=== PATIENT | female | born 1990 ===

== ENCOUNTER 2020-12-22 10:56 | Outpatient (REF) | payer OTHER, SELFPAY | END 2020-12-22 10:57 | disposition home or self-care (01) | LOC: HO.LAB 10:56 | PROVIDERS: Visit Provider Internal Medicine | DX: Z20.822 Contact with and (suspected) exposure to COVID-19 (principal) | CPT/HCPCS: 36415; C9803; U0003; U0005 ==

== ENCOUNTER 2021-07-10 14:00 | Outpatient (REF) | payer OTHER, SELFPAY ==
[2021-07-11 08:17] LABS: ~Hepatitis B Surface Antibody REACTIVE (Nonreactive)
[2021-07-13 18:11] LABS: TS Negative Control Passed; TS Panel A 4; TS Panel B 8; TS Positive Control Passed; TSpotTB POSITIVE (SeeBelow)
== END 2021-07-10 14:01 | disposition home or self-care (01) ==
LOC: HO.LNP 14:00
PROVIDERS: Visit Provider Internal Medicine
DX: Z02.1 Encounter for pre-employment examination (principal)
CPT/HCPCS: 86481; 86706; 86787

== ENCOUNTER → 2021-09-28 14:49 | Outpatient (BNVA) | payer MEDICAID, SELFPAY | PROVIDERS: PCP Internal Medicine; Visit Provider Internal Medicine | DX: R04.2 Hemoptysis (principal); Z22.7 Latent tuberculosis | CPT/HCPCS: 99202 ==

== ENCOUNTER → 2021-11-28 13:18 | Outpatient (BNVA) | payer OTHER, SELFPAY | PROVIDERS: PCP Internal Medicine; Visit Provider Advanced Practice Midwife | DX: Z32.01 Encounter for pregnancy test, result positive (principal) | CPT/HCPCS: 81025; 99212 ==

== ENCOUNTER 2022-01-16 16:29 | Emergency (ER) | payer OTHER, SELFPAY ==
--- NOTE | ~2022-01-16 | US_ITS ---
EXAMINATION: US PELVIS CLINICAL INFORMATION: Vaginal bleeding COMPARISON: Multiple prior ultrasound exams TECHNIQUE: Ultrasound of the pelvis is performed using both transabdominal and transvaginal transducers along with Doppler. Transvaginal imaging is performed due to inadequate visualization transabdominally. FINDINGS: Uterus: The uterus is anteverted and anteflexed measuring 9.0 x 4.0 x 5.4 cm. The double wall endometrial thickness is prominent and mildly heterogeneous at 15 mm. The uterus is smooth in contour and has normal myometrial echogenicity. No visible fibroid. Adnexa: Both ovaries are visualized. There is normal color flow to the adnexa. There is no ovarian torsion. There is no pelvic ascites or fluid collection. Right ovary measures 3.4 x 1.6 x 1.9 cm for a volume of 5.4 mL. Left ovary measures 3.3 x 1.3 x 2.6 cm for a volume of 5.8 mL. Normal bilateral follicular cysts are seen. US/US pelvic and transvaginal IMPRESSION: No significant abnormality is seen.
[2022-01-16] MEDS: 0.9 % Sodium Chloride 1,000 ML 999 ML IV (17:07)
[2022-01-16 17:09] VITALS: BP 140/81; PULSE 70; RESP 16; TEMP 37.4; O2SAT 100; BMI 26.6
[2022-01-16 17:11] LABS: MANUAL DIFF FLAG NO
[2022-01-16 17:12] LABS: Basophils Percent Auto 0.4 % (0-2); Eosinophils Absolute Auto 0.1 X10*3/uL (0.0-0.4); Eosinophils Percent Auto 1.2 % (0-4); Hematocrit 40.5 % (37.0-47.0); Hemoglobin 13.6 g/dl (12.0-16.0); Imm Gran Abs Auto 0.02 X10*3/uL (0.00-0.03); Imm Gran Pct Auto 0.3 % (0.0-0.4); Lymphocytes Absolute Auto 2.4 X10*3/uL (1.2-4.9); Lymphocytes Percent Auto 31.1 % (20-40); Mean Corpuscular HGB Conc 33.6 g/dl (31.0-35.0); Mean Corpuscular Volume 89.2 fL (80.0-98.0); Mean Platelet Volume 9.7 fL (9.4-12.3); Monocytes Absolute Auto 0.6 X10*3/uL (0.1-1.2); Monocytes Percent Auto 8.5 % (2-11); Neutrophils Absolute Auto 4.4 x10*3/uL (2.0-8.3); Neutrophils Percent Auto 58.5 % (45-73); Platelet Count 271 X10*3/uL (160-400); Red Blood Count 4.54 X10*6/uL (4.20-5.50); White Blood Count 7.6 X10*3/uL (4.8-10.8)
[2022-01-16 17:22] LABS: Lactic Acid 0.6 mmol/L (0.5-2.0)
[2022-01-16 17:25] LABS: Fibrinogen 462 MG/DL (259-690); INTERNATIONAL NORM RATIO 1.1 (0.9-1.1)
[2022-01-16 17:27] LABS: Alanine Aminotransferase 15 U/L (0-31); Albumin Level 4.7 g/dL (3.5-5.0); Alkaline Phosphatase 55 U/L (39-117); Anion Gap 10 (12-20); Aspartate Amino Transferase 15 U/L (5-31); Bilirubin Total 0.4 mg/dL (0.0-1.0); Blood Urea Nitrogen 12 mg/dL (9-16); Calcium 9.5 mg/dL (8.4-10.2); Carbon Dioxide 27 mmol/L (22-29); Chloride 106 mmol/L (96-108); Estimated Glomerular Filt Rate > 60; Glucose Random 87 mg/dL (60-115); Lipase 35 U/L (8-78); Sodium 139 mmol/L (135-145); Total Protein 7.7 g/dL (6.5-8.0)
[2022-01-16 17:28] LABS: COVID-19 Test Negative (Negative); IDNOW Serial# 16C4AD1C; Partial Thromboplastin Time 33.8 SEC (24.1-38.0)
[2022-01-16 17:29] LABS: D Dimer High Sensitivity < 150 NG/ML
[2022-01-16 17:33] LABS: HCG Quantitative 545 mIU/mL
[2022-01-16] MEDS: Morphine Sulfate 4 MG/ML CARTRIDGE IVPUSH (17:44)
[2022-01-16] MEDS: ondansetron HCL 4 MG/2 ML VIAL IVPUSH (17:44)
--- NOTE | 2022-01-16 18:56 | PM.GYNCN ---
[employer] - CN: HPI Data of Consult Consult date: 01/16/22 Primary Care Provider: Tammy Lewis MD Consult Narrative Narrative: I was called on Марина Corrales who is a 31 year old female who presented to the emergency room complaining of heavy vaginal bleeding. The patient [facility], and had mild bleeding after the procedure. The patient had menstrual bleeding on 01/14. Today she started having heavy vaginal bleeding with passage of blood clots per vagina while working, so she presented the ER. The patient received Depo-Provera few weeks ago cc:: CC: OB [facility] Past Medical History Medical History (Updated 01/17/22 @ 00:02 by Lisa Hunter) Hemoptysis Surgical History Surgical History (Updated 01/17/22 @ 11:29 by Caitlin Carpenter MA) Hx of section Social History Social History Alcohol intake: never Patient Tobacco Use Status: Former Tobacco user Patient : No Gender identity: Female Meds Allergies Allergy/AdvReac Type Severity Reaction Status Date / Time codeine [CODEINE] Allergy Unknown NAUSEA & Verified 01/17/22 11:28 VOMITING [employer] Physical Exam Vitals Vital signs: Temp Pulse Resp BP Pulse Ox 99.4 F 70 16 140/81 H 100 01/16/22 17:09 01/16/22 17:09 01/16/22 17:09 01/16/22 17:09 01/16/22 17:09 BMI result Body Mass Index 26.6 Additional Comments: Pelvic exam reported by Dr. Danial Lee, emergency room physician several large blood clots removed from the vagina cervix is closed, blood oozing from the os [employer] - Results Labs CBC & Chem 7: 01/16/22 20:20 01/16/22 17:04 Labs: Short CBC 01/16/22 Range/Units 17:04 WBC 7.6 (4.8-10.8) X10*3/uL Hgb 13.6 (12.0-16.0) g/dl Hct 40.5 (37.0-47.0) % Plt Count 271 (160-400) X10*3/uL BMP 01/16/22 17:04 Sodium 139 Potassium 4.0 Chloride 106 Carbon Dioxide 27 BUN 12 Creatinine 0.80 Calcium 9.5 Liver Function 01/16/22 Range/Units 17:04 Total Bilirubin 0.4 (0.0-1.0) mg/dL AST 15 (5-31) U/L ALT 15 (0-31) U/L Alkaline Phosphatase 55 (39-117) U/L Albumin 4.7 (3.5-5.0) g/dL Imaging US - abdomen: Radiologist's impression: ITS Impressions Pelvic/Transvag US 01/16/22 18:19 IMPRESSION: No significant abnormality is seen. Assessment and Plan (1) Abnormal uterine bleeding: Status: Acute Since H&H was 13.6 and 40.5, stable vital signs, ultrasound showing no evidence of retained products of conception, I recommended the following: Pad count for 3 hours, repeat pelvic exam assessed amount of vaginal bleeding and H&H in 3-4 hours, if the vaginal bleeding slows down, vital signs are stable and repeat H&H does not drop significantly, the patient can be discharged home, to follow-up in the office in the coming in a.m. with a repeat hCG quantitative. Instructions to be given to the patient to come back to emergency room in case of persistence or recurrence of heavy vaginal bleeding.
[2022-01-16 20:15] VITALS: BP 124/84; PULSE 68; RESP 16; TEMP 37.4; O2SAT 99
[2022-01-16 20:27] LABS: Hemoglobin 11.6 g/dl (12.0-16.0)
--- NOTE | 2022-01-16 21:48 | ED_ITS ---
HPI - Female Genitourinary General Chief complaint: Vaginal Bleeding Stated complaint: Vaginal Bleeding Time Seen by Provider: 01/16/22 16:41 Source: patient Mode of arrival: wheelchair Limitations: no limitations History of Present Illness HPI Narrative: 31-year-old female who presents emergency department for evaluation of severe vaginal bleeding. The patient is a , [facility]. She states that she was approximately 6 weeks at that time. She states that after the she had minimal bleeding for approximately 1 week. She states that last (7 days prior to evaluation) she started to have some light bleeding which she thought was consistent with the regular menstrual periods. 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 She states that a large amount of blood with blood clots then poured out of her vagina. She also developed lower abdominal cramping and felt lightheaded and dizzy. The patient was placed in a wheelchair brought to the emergency department from the physical therapy department. The patient states that she has not noticed any unusual bleeding. She denied fever, chills, chest pain, shortness of breath, nausea, vomiting, frequency, urgency or dysuria. Related Data Home Medications Medication Instructions Recorded Confirmed No Known Home Meds 11/28/21 11/28/21 Allergies Allergy/AdvReac Type Severity Reaction Status Date / Time codeine [CODEINE] Allergy Unknown NAUSEA & Verified 11/28/21 13:41 VOMITING Review of Systems Review of Systems: Yes all other systems are reviewed and are negative [facility] Past Medical History [facility] Narrative: Past medical history: None. Past surgical history: None. Social history: She does smoke cigarettes. She denies alcohol use. She denies drug use. Medical History Hemoptysis Social History Social History Alcohol intake: never Patient Tobacco Use Status: Former Tobacco user Advance Directives: No Advance Directives Information Provided: No Gender identity: Female Physical Exam Vital Signs: Vital Signs: Last Vital Signs Temp 99.4 F 01/16/22 20:15 Pulse 68 01/16/22 20:15 Resp 16 01/16/22 20:15 BP 124/84 01/16/22 20:15 Pulse Ox 99 01/16/22 20:15 BMI result Body Mass Index 26.6 Const: Other: Awake, alert, female patient, very pleasant and cooperative, she does appear to be anxious. The patient had a large amount blood clots in her underwear and on the bed when she dressed. HENMT: Head: Yes normal to inspection, Yes normocephalic and Yes atraumatic Ears: external ears normal General nose exam: Normal external nose present Face and sinus: Yes normal facial exam Mouth: Normal oral and palatal mucosa present Throat: Yes posterior oropharynx normal Eyes: General: appearance normal, both eyes and all related structures Pupils: Equal, round and reactive pupils present Neck: Neck: Yes normal visual inspection, Yes no lymphadenopathy, Yes trachea midline and Yes supple Chest: Chest palpation & inspection: normal inspection of the chest and normal palpation of entire chest wall Resp: Effort & Inspection: normal respiratory effort and able to speak in complete sentences Auscultation: clear to auscultation bilaterally Cardio: Rate: regular rate Rhythm: regular rhythm Heart sounds: S1 normal heart sound present, S2 normal heart sound present and no murmurs GI: Inspection: Yes normal to inspection Palpation (GI): Soft to palpation, nontender and no guarding Auscultation: normal bowel sounds : General: Yes no CVA tenderness External Female Exam: normal external appearance Speculum Exam - Vagina: vaginal bleeding (4-5 large blood clots from the vaginal vault, removed wring forceps/gauze) Speculum Exam - Cervix: normal appearance of the cervix, Cervical os closed and Other cervical findings present (Small amount of blood was using from os) Bimanual exam- vagina & uterus: normal bimanual exam Bimanual Exam- Adnexa, other: normal adnexae OB/external & speculum: vaginal bleeding (4-5 large blood clots from the vaginal vault, removed wring forceps/gauze) Back/Spine/Pelvis: Back: no CVA tenderness Skin: General skin exam: no rashes or lesions noted Neuro: Cranial nerves: Yes CN's II-XII intact bilaterally and Yes Equal, round and reactive pupils present Cognition (Neuro): normal cognition Motor exam (neuro): 5/5 motor strength present throughout Extrem: General: Yes normal to inspection Psych: Appearance: grossly normal Speech and movement: Normal speech and movement present Affect: normal affect Attitude: cooperative Thought process: Normal thought process present Thought content: Normal thought content present Course Course Course Narrative: 31-year-old female , therapeutic 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 The patient is approximately 7 weeks status post therapeutic . She started to have menstrual bleeding 7 days prior but then had a large amount of blood clots passed per her vagina while she was at work today. Presentation to the emergency department she did appear to be anxious and did have multiple large blood clots in her underwear and on the bed when she got on dressed. Her vital signs were normal. Patient's vaginal exam did reveal struggle more large blood clots in the vaginal vault which removed with for gauze pads wrapped around ring forceps. The cervix was visualized and the cervical os was closed. Patient had some blood oozing from the cervical os. 2205: Laboratory evaluation: Quantitative beta HCG was 545. H&H was 13.6 and 40.5. Repeat H&H 3 hours later was 11.6 and 35. Coags including PT/INR, PTT, D-dimer and fibrinogen were all normal. COVID-19 was negative. The OB ultrasound revealed no products of conception and was normal. The patient was observed in the emergency department for approximately 5 hours. During this ti me, after the initial vaginal bleed, she only had minimal bleeding and did not soaked through an OB pad. Patient's H&H did not decreased significantly to require transfusion. I did discuss the patient's presentation with our covering internship coordinator, Dr. Milad Varela. The patient did [facility] therefore she does not require control pills at this time . She will follow up tomorrow with the internship coordinator on-call. Patient was given a work note as well. She was given printed and verbal instructions and discharged home MDM - Female Genitourinary Lab Data Result diagrams: 01/16/22 20:20 01/16/22 17:04 Labs: Lab Results 01/16/22 01/16/22 01/16/22 Range/Units 17:04 17:04 17:04 WBC 7.6 (4.8-10.8) X10*3/uL RBC 4.54 (4.20-5.50) X10*6/uL Hgb 13.6 (12.0-16.0) g/dl Hct 40.5 (37.0-47.0) % MCV 89.2 (80.0-98.0) fL MCH 30.0 (27.0-33.0) pg MCHC 33.6 (31.0-35.0) g/dl RDW 12.0 (11.0-16.0) % Plt Count 271 (160-400) X10*3/uL MPV 9.7 (9.4-12.3) fL Immature Gran % (Auto) 0.3 (0.0-0.4) % Neut % (Auto) 58.5 (45-73) % Lymph % (Auto) 31.1 (20-40) % [place] % (Auto) 8.5 (2-11) % Eos % (Auto) 1.2 (0-4) % Baso % (Auto) 0.4 (0-2) % Lymph # (Auto) 2.4 (1.2-4.9) X10*3/uL [place] # (Auto) 0.6 (0.1-1.2) X10*3/uL Eos # (Auto) 0.1 (0.0-0.4) X10*3/uL Baso # (Auto) 0.0 (0.0-0.2) X10*3/uL Abs Immat Gran (auto) 0.02 (0.00-0.03) X10*3/uL Absolute Neuts (auto) 4.4 (2.0-8.3) x10*3/uL Absolute Nucleated RBC 0.000 (0.0-0.012) X10*3/uL Nucleated RBC % (auto) 0.0 (0.0-0.2) /100WBC PT 13.0 (9.9-13.0) SEC INR 1.1 (0.9-1.1) APTT 33.8 (24.1-38.0) SEC Fibrinogen Cancelled 462 D-Dimer High Sensitivty < 150 NG/ML Sodium (135-145) mmol/L Potassium (3.3-5.1) mmol/L Chloride (96-108) mmol/L Carbon Dioxide (22-29) mmol/L Anion Gap (12-20) BUN (9-16) mg/dL Creatinine (0.5-1.4) mg/dL Estim Creat Clear Calc Estimated GFR Random Glucose (60-115) mg/dL Lactic Acid (0.5-2.0) mmol/L Calcium (8.4-10.2) mg/dL Total Bilirubin (0.0-1.0) mg/dL AST (5-31) U/L ALT (0-31) U/L Alkaline Phosphatase (39-117) U/L Total Protein (6.5-8.0) g/dL Albumin (3.5-5.0) g/dL Lipase (8-78) U/L Beta HCG, Quant mIU/mL COVID-19 (DELL) (Negative) COVID-19 Clin Com 01/16/22 01/16/22 01/16/22 Range/Units 17:04 17:04 17:04 WBC (4.8-10.8) X10*3/uL RBC (4.20-5.50) X10*6/uL Hgb (12.0-16.0) g/dl Hct (37.0-47.0) % MCV (80.0-98.0) fL MCH (27.0-33.0) pg MCHC (31.0-35.0) g/dl RDW (11.0-16.0) % Plt Count (160-400) X10*3/uL MPV (9.4-12.3) fL Immature Gran % (Auto) (0.0-0.4) % Neut % (Auto) (45-73) % Lymph % (Auto) (20-40) % [place] % (Auto) (2-11) % Eos % (Auto) (0-4) % Baso % (Auto) (0-2) % Lymph # (Auto) (1.2-4.9) X10*3/uL [place] # (Auto) (0.1-1.2) X10*3/uL Eos # (Auto) (0.0-0.4) X10*3/uL Baso # (Auto) (0.0-0.2) X10*3/uL Abs Immat Gran (auto) (0.00-0.03) X10*3/uL Absolute Neuts (auto) (2.0-8.3) x10*3/uL Absolute Nucleated RBC (0.0-0.012) X10*3/uL Nucleated RBC % (auto) (0.0-0.2) /100WBC PT (9.9-13.0) SEC INR (0.9-1.1) APTT (24.1-38.0) SEC Fibrinogen D-Dimer High Sensitivty NG/ML Sodium 139 (135-145) mmol/L Potassium 4.0 (3.3-5.1) mmol/L Chloride 106 (96-108) mmol/L Carbon Dioxide 27 (22-29) mmol/L Anion Gap 10 L (12-20) BUN 12 (9-16) mg/dL Creatinine 0.80 (0.5-1.4) mg/dL Estim Creat Clear Calc TNP Estimated GFR > 60 Random Glucose 87 (60-115) mg/dL Lactic Acid 0.6 (0.5-2.0) mmol/L Calcium 9.5 (8.4-10.2) mg/dL Total Bilirubin 0.4 (0.0-1.0) mg/dL AST 15 (5-31) U/L ALT 15 (0-31) U/L Alkaline Phosphatase 55 (39-117) U/L Total Protein 7.7 (6.5-8.0) g/dL Albumin 4.7 (3.5-5.0) g/dL Lipase 35 (8-78) U/L Beta HCG, Quant 545 mIU/mL COVID-19 (DELL) Negative (Negative) COVID-19 Clin Com See Note 01/16/22 Range/Units 20:20 WBC (4.8-10.8) X10*3/uL RBC (4.20-5.50) X10*6/uL Hgb 11.6 L (12.0-16.0) g/dl Hct 35.0 L (37.0-47.0) % MCV (80.0-98.0) fL MCH (27.0-33.0) pg MCHC (31.0-35.0) g/dl RDW (11.0-16.0) % Plt Count (160-400) X10*3/uL MPV (9.4-12.3) fL Immature Gran % (Auto) (0.0-0.4) % Neut % (Auto) (45-73) % Lymph % (Auto) (20-40) % [place] % (Auto) (2-11) % Eos % (Auto) (0-4) % Baso % (Auto) (0-2) % Lymph # (Auto) (1.2-4.9) X10*3/uL [place] # (Auto) (0.1-1.2) X10*3/uL Eos # (Auto) (0.0-0.4) X10*3/uL Baso # (Auto) (0.0-0.2) X10*3/uL Abs Immat Gran (auto) (0.00-0.03) X10*3/uL Absolute Neuts (auto) (2.0-8.3) x10*3/uL Absolute Nucleated RBC (0.0-0.012) X10*3/uL Nucleated RBC % (auto) (0.0-0.2) /100WBC PT (9.9-13.0) SEC INR (0.9-1.1) APTT (24.1-38.0) SEC Fibrinogen D-Dimer High Sensitivty NG/ML Sodium (135-145) mmol/L Potassium (3.3-5.1) mmol/L Chloride (96-108) mmol/L Carbon Dioxide (22-29) mmol/L Anion Gap (12-20) BUN (9-16) mg/dL Creatinine (0.5-1.4) mg/dL Estim Creat Clear Calc Estimated GFR Random Glucose (60-115) mg/dL Lactic Acid (0.5-2.0) mmol/L Calcium (8.4-10.2) mg/dL Total Bilirubin (0.0-1.0) mg/dL AST (5-31) U/L ALT (0-31) U/L Alkaline Phosphatase (39-117) U/L Total Protein (6.5-8.0) g/dL Albumin (3.5-5.0) g/dL Lipase (8-78) U/L Beta HCG, Quant mIU/mL COVID-19 (DELL) (Negative) COVID-19 Clin Com Critical Care Time Critical Care Time Critical Care Time: Yes Total Critical Care Time: 35 Attestation: Critical Care: The patient was critically ill with a high probability of imminent or life threatening deterioration. I spent greater than 30 minutes of discontinuous time evaluating the patient,delivering critical care at the bedside, discussing and evaluating pertinent data with consultants. Critical care time does not include time spent performing separately billable procedures or teaching. Total time spent performing critical care was 35 minutes. Discharge Plan Discharge Clinical Impression: Abnormal vaginal bleeding Patient Disposition: Home, Self-Care Instructions: Dysfunctional Uterine Bleeding (ED) Additional Instructions: At this time, I believe that your bleeding is secondary to an unusual/dysf unctional menstrual period related to the fact that you were recently and not related to the . The ultrasound was normal and there were no products of conception noted in your uterus. Your hematocrit was initially 40.5% and a repeat hematocrit was 35%. This is reassuring and we usually do not transfuse blood unless your hematocrit gets down to 21%. Your test/ quantitative beta-hCG was 545. This is not unusual that your test is positive after an or delivery. It is important however that we follow this beta-hCG to make sure that it goes down to 0 over the next 1 to 2 months. Our internship coordinator, Dr. Varela wants to see you in the office tomorrow morning. Call his office in the morning to make a follow-up appointment for tomorrow Follow-up with your doctor in 2 days. Please return to the emergency department if your symptoms get worse or if you develop any symptoms that are concerning to you. Please see the work note Prescriptions: No Action No Known Home Meds 0RF Referrals: Milad Varela MD [Physician] - 1 day Stand Alone Forms: Work/School Release Interventions: ED Discharge Assessment Last Done: 01/16/22 22:09 Discharge Date/Time: 01/16/22 22:12
== END 2022-01-16 22:12 | disposition home or self-care (01) ==
PROVIDERS: Emergency Provider Emergency Medicine Emergency Medical Services; PCP Internal Medicine
DX: N93.9 Abnormal uterine and vaginal bleeding, unspecified (principal); Z20.822 Contact with and (suspected) exposure to COVID-19; Z79.899 Other long term (current) drug therapy
CPT/HCPCS: 36415; 76830; 76856; 80053; 83605; 83690; 84702; 85014; 85018; 85025; 85379; 85384; 85610; 85730; 87635; 96361; 96374; 96375; 99284; 99291; J2270; J2405

== ENCOUNTER 2022-01-17 10:29 | Outpatient (REF) | payer OTHER, SELFPAY ==
[2022-01-17 11:38] LABS: HCG Quantitative 547 mIU/mL
[2022-01-17 16:22] LABS: CT PCR NOT DETECTED (Not Detect.); NG PCR NOT DETECTED (Not Detect.)
== END 2022-01-17 10:30 | disposition home or self-care (01) ==
LOC: HO.LAB 10:29
PROVIDERS: PCP Internal Medicine; Visit Provider Obstetrics & Gynecology
DX: N93.9 Abnormal uterine and vaginal bleeding, unspecified (principal)
CPT/HCPCS: 36415; 84702; 87491; 87591; 99212

== ENCOUNTER 2022-01-19 09:00 | Outpatient (REF) | payer OTHER, SELFPAY ==
[2022-01-19 09:57] LABS: HCG Quantitative 399 mIU/mL
== END 2022-01-19 09:01 | disposition home or self-care (01) ==
LOC: HO.LAB 09:00
PROVIDERS: PCP Internal Medicine; Visit Provider Obstetrics & Gynecology
DX: N93.9 Abnormal uterine and vaginal bleeding, unspecified (principal)
CPT/HCPCS: 36415; 84702; 86850; 86886; 86900; 86901

== ENCOUNTER 2022-01-21 07:25 | Outpatient (REF) | payer OTHER, SELFPAY ==
[2022-01-21 08:33] LABS: HCG Quantitative 303 mIU/mL
== END 2022-01-21 07:26 | disposition home or self-care (01) ==
LOC: HO.LAB 07:25
PROVIDERS: PCP Internal Medicine; Visit Provider Obstetrics & Gynecology
DX: N93.9 Abnormal uterine and vaginal bleeding, unspecified (principal)
CPT/HCPCS: 36415; 84702; 99212

== ENCOUNTER 2022-02-08 12:24 | Outpatient (REF) | payer OTHER, SELFPAY ==
[2022-02-08 12:49] LABS: MANUAL DIFF FLAG NO
[2022-02-08 13:02] LABS: Basophils Percent Auto 0.5 % (0-2); Eosinophils Absolute Auto 0.1 X10*3/uL (0.0-0.4); Eosinophils Percent Auto 1.2 % (0-4); Hematocrit 35.9 % (37.0-47.0); Hemoglobin 11.5 g/dl (12.0-16.0); Imm Gran Abs Auto 0.01 X10*3/uL (0.00-0.03); Imm Gran Pct Auto 0.2 % (0.0-0.4); Lymphocytes Absolute Auto 2.4 X10*3/uL (1.2-4.9); Lymphocytes Percent Auto 37.5 % (20-40); Mean Corpuscular Hemoglobin 28.2 pg (27.0-33.0); Mean Platelet Volume 9.9 fL (9.4-12.3); Monocytes Absolute Auto 0.5 X10*3/uL (0.1-1.2); Monocytes Percent Auto 7.4 % (2-11); Neutrophils Absolute Auto 3.5 x10*3/uL (2.0-8.3); Neutrophils Percent Auto 53.2 % (45-73); Platelet Count 261 X10*3/uL (160-400); Red Blood Count 4.08 X10*6/uL (4.20-5.50); Red Cell Distribution Width 11.7 % (11.0-16.0); White Blood Count 6.5 X10*3/uL (4.8-10.8)
[2022-02-08 13:38] LABS: Alanine Aminotransferase 21 U/L (0-31); Albumin Level 4.6 g/dL (3.5-5.0); Alkaline Phosphatase 56 U/L (39-117); Anion Gap 10 (12-20); Aspartate Amino Transferase 16 U/L (5-31); Bilirubin Total 0.3 mg/dL (0.0-1.0); Blood Urea Nitrogen 13 mg/dL (9-16); Calcium 9.7 mg/dL (8.4-10.2); Carbon Dioxide 27 mmol/L (22-29); Chloride 105 mmol/L (96-108); Estimated Glomerular Filt Rate > 60; Glucose Random 103 mg/dL (60-115); Potassium 4.4 mmol/L (3.3-5.1); Sodium 138 mmol/L (135-145); Total Protein 7.5 g/dL (6.5-8.0)
[2022-02-08 13:44] LABS: HCG Quantitative 46 mIU/mL
[2022-02-08 13:59] LABS: TSH reflex Free T4 0.95 uIU/mL (0.32-4.0)
[2022-02-08 14:31] LABS: Folate 9.6 ng/mL (> or = 4.0); Vitamin B12 321 pg/mL (200-900)
[2022-02-13 13:16] LABS: Vitamin D 25-OH, D2 <4 ng/mL; Vitamin D 25-OH, D3 23 ng/mL; Vitamin D 25-OH, Total 23 ng/mL (30-100)
== END 2022-02-08 12:25 | disposition home or self-care (01) ==
LOC: HO.LAB 12:24
PROVIDERS: Absent Provider Obstetrics & Gynecology; PCP Internal Medicine; Visit Provider Nurse Practitioner Acute Care
DX: N93.9 Abnormal uterine and vaginal bleeding, unspecified (principal)
CPT/HCPCS: 36415; 80053; 82306; 82607; 82746; 84443; 84702; 85025

== ENCOUNTER → 2022-02-19 15:03 | Outpatient (BNVA) | payer OTHER, SELFPAY | PROVIDERS: Visit Provider Obstetrics & Gynecology | DX: Z13.89 Encounter for screening for other disorder (principal) ==

== ENCOUNTER 2022-03-01 15:00 | Outpatient (RCR) | payer OTHER, SELFPAY ==
--- NOTE | 2022-02-04 15:18 | MHC.PT.EP ---
[facility] [place] Office [place] Office [place] Office [address] Ayana Gamez [address] [phone] F: [phone] F: [phone] F: [phone] F: [phone] Physical Therapy Plan of Care Date of Evaluation: Date of Surgery: NA Diagnosis: Muscle weakness Assessment: Марина is 31 year old female who is referred to PT for generalized weakness . Марина had an episode of extensive vaginal bleeding about 3 weeks back which made her feel very weak and tired. She had a MTP about 3 months back. On PT examination she denied having any pain or TTP however reports of having weakness in B LE. She presented with decreased B LE gross ROM which makes stair negotiation and carrying weights challenging. She is independent with ADLs however has increased fatigue with certain activities. She would benefit from skilled PT to address the aforementioned impairments and improve tolerance to functional activities. Frequency and Duration: The patient will be seen 2/week for 6 weeks Short Term Goals: 1. Pt will initiate performing HEP and be independent with it in 2 weeks. 2. 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 Pt will demonstrate an increase in muscle strength by 1 grade which will enable her to carrying her daughter up and down stairs, pick her up to make her sit on higher surface without difficulty in 5 weeks. 2. Pt will be independent with HEP for symptom management and prevention following d/c in 6 weeks Treatment Plan: Modalities to reduce pain, spasms and effusion. Manual therapy to restore motion and function. Therapeutic exercise to improve strength and flexibility. Neuromuscular re-education for posture and balance. Therapeutic activities to return to functional activities of daily living. Electronically signed by: Alexandra Lloyd PT DPT Please sign and return to therapist. Thank you for your referral.
--- NOTE | 2022-04-09 14:58 | MHC.PT.DC ---
[facility] [place] Office [place] Office [place] Office [address] Ayana Gamez [address] [phone] F: [phone] F: [phone] F: [phone] F: [phone] Physical Therapy Discharge Report Diagnosis: Muscle weakness Date of Surgery: NA Date of Evaluation: 02/04/22 Date of Discharge: 04/09/22 Treatments to Date: 6 Cancellations to Date: 0 No Shows to Date: 0 Discharge Status: Achieved Goals Improved Function Independent with HEP Discharge Summary: Марина has achieved all goals set for her. She is independent with her HEP as well. She is therefore being d/c from PT. Electronically signed by: Alexandra Lloyd PT DPT Please sign and return to therapist. Thank you for your referral.
== END 2022-04-09 14:59 | disposition home or self-care (01) ==
LOC: HO.PT 15:00
PROVIDERS: PCP Internal Medicine; Visit Provider Nurse Practitioner Acute Care
DX: M62.81 Muscle weakness (generalized) (principal)
CPT/HCPCS: 97110; 97112; 97161; 97530

== ENCOUNTER 2022-03-07 11:23 | Outpatient (REF) | payer OTHER, SELFPAY ==
[2022-03-07 13:11] LABS: HCG Quantitative 15 mIU/mL
[2022-03-10 00:17] LABS: TS Negative Control Passed; TS Panel A 0; TS Panel B 0; TS Positive Control Passed; TSpotTB Negative (Negative)
== END 2022-03-07 11:24 | disposition home or self-care (01) ==
LOC: HO.LAB 11:23
PROVIDERS: Absent Provider Nurse Practitioner Acute Care; PCP Nurse Practitioner Acute Care; Visit Provider Obstetrics & Gynecology
DX: N93.9 Abnormal uterine and vaginal bleeding, unspecified (principal); Z11.1 Encounter for screening for respiratory tuberculosis; Z98.890 Other specified postprocedural states
CPT/HCPCS: 36415; 84702; 86481

== ENCOUNTER → 2022-03-14 12:49 | Outpatient (BNVA) | payer OTHER, SELFPAY | PROVIDERS: Visit Provider Advanced Practice Midwife | DX: Z30.42 Encounter for surveillance of injectable contraceptive (principal) | CPT/HCPCS: 96372; 99211 ==

== ENCOUNTER 2022-04-04 14:10 | Outpatient (REF) | payer OTHER, SELFPAY ==
[2022-04-04 14:24] LABS: MANUAL DIFF FLAG NO
[2022-04-04 15:14] LABS: Basophils Percent Auto 0.3 % (0-2); Eosinophils Absolute Auto 0.1 X10*3/uL (0.0-0.4); Eosinophils Percent Auto 0.7 % (0-4); Hematocrit 42.4 % (37.0-47.0); Hemoglobin 13.7 g/dl (12.0-16.0); Imm Gran Abs Auto 0.03 X10*3/uL (0.00-0.03); Imm Gran Pct Auto 0.3 % (0.0-0.4); Immature Retic Fraction 8.8 % (3.0-15.9); Lymphocytes Absolute Auto 1.9 X10*3/uL (1.2-4.9); Lymphocytes Percent Auto 20.4 % (20-40); Mean Corpuscular HGB Conc 32.3 g/dl (31.0-35.0); Mean Corpuscular Hemoglobin 27.7 pg (27.0-33.0); Mean Corpuscular Volume 85.7 fL (80.0-98.0); Mean Platelet Volume 10.3 fL (9.4-12.3); Monocytes Absolute Auto 0.7 X10*3/uL (0.1-1.2); Monocytes Percent Auto 7.9 % (2-11); Neutrophils Absolute Auto 6.4 x10*3/uL (2.0-8.3); Neutrophils Percent Auto 70.4 % (45-73); Platelet Count 292 X10*3/uL (160-400); Red Blood Count 4.95 X10*6/uL (4.20-5.50); Red Cell Distribution Width 13.2 % (11.0-16.0); Retic HGB Equivalent 32.6 pg (30.0-35.0); Reticulocyte Percent 1.2 % (0.5-1.8); Reticulocytes Absolute 0.058 X10*6/uL (0.026-0.095); White Blood Count 9.1 X10*3/uL (4.8-10.8)
[2022-04-04 15:47] LABS: Alanine Aminotransferase 24 U/L (0-31); Albumin Level 4.6 g/dL (3.5-5.0); Alkaline Phosphatase 60 U/L (39-117); Anion Gap 14 (12-20); Aspartate Amino Transferase 17 U/L (5-31); Bilirubin Total 0.4 mg/dL (0.0-1.0); Blood Urea Nitrogen 18 mg/dL (9-16); Calcium 9.7 mg/dL (8.4-10.2); Carbon Dioxide 23 mmol/L (22-29); Chloride 105 mmol/L (96-108); Estimated Glomerular Filt Rate > 60; Glucose Random 112 mg/dL (60-115); Iron 138 mcg/dL (30-160); Percent Iron Saturation 30 % (15-50); Potassium 5.2 mmol/L (3.3-5.1); Sodium 137 mmol/L (135-145); Total Iron Binding Capacity 461 mcg/dL (228-428); Total Protein 7.9 g/dL (6.5-8.0); Unsaturated Iron Binding 323 ug/dL
[2022-04-04 15:53] LABS: HCG Quantitative < 2 mIU/mL
[2022-04-04 16:09] LABS: Ferritin 14 ng/mL (10-122); Free T4 (Free Thyroxine) 1.03 ng/dL (0.71-1.85); Thyroid Stimulating Hormone 0.61 uIU/mL (0.32-4.0)
[2022-04-04 16:21] LABS: Folate 13.1 ng/mL (> or = 4.0); Vitamin B12 363 pg/mL (200-900)
== END 2022-04-04 14:11 | disposition home or self-care (01) ==
LOC: HO.LAB 14:10
PROVIDERS: Absent Provider Internal Medicine; PCP Internal Medicine; Visit Provider Obstetrics & Gynecology
DX: D50.0 Iron deficiency anemia secondary to blood loss (chronic) (principal); Z98.890 Other specified postprocedural states
CPT/HCPCS: 36415; 80053; 82607; 82728; 82746; 83540; 84439; 84443; 84702; 85025; 85045

== ENCOUNTER → 2022-04-11 14:03 | Outpatient (BNVA) | payer OTHER, SELFPAY | PROVIDERS: Visit Provider Obstetrics & Gynecology | DX: Z13.89 Encounter for screening for other disorder (principal) ==

== ENCOUNTER 2022-06-10 08:06 | Outpatient (REF) | payer OTHER, SELFPAY ==
[2022-06-10 08:43] LABS: COVID-19 Test Negative (Negative); IDNOW Serial# 9DD0AD1C
== END 2022-06-10 08:07 | disposition home or self-care (01) ==
LOC: HO.LAB 08:06
PROVIDERS: Visit Provider Internal Medicine
DX: Z20.822 Contact with and (suspected) exposure to COVID-19 (principal)
CPT/HCPCS: 87635; C9803

== ENCOUNTER → 2022-06-12 12:55 | Outpatient (BNVA) | payer OTHER, SELFPAY | PROVIDERS: PCP Internal Medicine; Visit Provider Obstetrics & Gynecology | DX: Z30.42 Encounter for surveillance of injectable contraceptive (principal) | CPT/HCPCS: 96372; 99211 ==

== ENCOUNTER 2022-07-04 12:20 | Outpatient (REF) | payer OTHER, SELFPAY ==
[2022-07-05 02:35] LABS: CT PCR NOT DETECTED (Not Detect.); NG PCR NOT DETECTED (Not Detect.)
[2022-07-05 05:20] LABS: HBsAGNum1 0.25 S/CO (0.00-0.99); HIV AB/AG Nonreactive (Nonreactive); HIV Num 1 0.07 S/CO (0.00-0.99); Hepatitis B Surface Antigen Negative (Negative); ~Hepatitis C Antibody Nonreactive (Nonreactive)
[2022-07-05 06:36] LABS: Syphilis Screen Nonreactive (Nonreactive)
[2022-07-05 13:08] LABS: BV Int Neg Control Negative (Negative); BV Int Pos Control Positive (Positive)
== END 2022-07-04 12:21 | disposition home or self-care (01) ==
LOC: HO.LAB 12:20
PROVIDERS: PCP Internal Medicine; Visit Provider Obstetrics & Gynecology
DX: Z11.3 Encounter for screening for infections with a predominantly sexual mode of transmission (principal); Z11.4 Encounter for screening for human immunodeficiency virus [HIV]; N76.0 Acute vaginitis; B96.89 Other specified bacterial agents as the cause of diseases classified elsewhere
CPT/HCPCS: 36415; 86780; 86803; 87340; 87389; 87480; 87491; 87510; 87591; 87660; 99212

== ENCOUNTER 2022-09-05 13:17 | Emergency (ER) | payer OTHER, SELFPAY ==
--- NOTE | ~2022-09-05 | US_ITS ---
EXAMINATION: US ABDOMEN LIMITED CLINICAL INFORMATION: Right upper quadrant and epigastric pain. COMPARISON: 12/03/2018 TECHNIQUE: Real-time imaging of the right upper quadrant abdominal viscera. FINDINGS: GALLBLADDER: The gallbladder is physiologically distended without evidence of stones, sludge, polyps, wall thickening or pericholecystic fluid. Positive sonographic Motley's sign. COMMON BILE DUCT: Normal in caliber measuring 0.4 cm in diameter. US/US abdomen limited IMPRESSION: The gallbladder is sonographically unremarkable however there is a positive sonographic Motley's sign per the technologist. Findings are equivocal. Advise clinical correlation.
[2022-09-05 13:25] VITALS: BP 119/67; BP 127/88; PULSE 68; PULSE 77; RESP 16; O2SAT 98; BMI 33.3
--- NOTE | 2022-09-05 13:35 | ED.ABDPAIN ---
HPI - Abdominal Pain General Chief Complaint: Nausea/Vomiting/Diarrhea Stated Complaint: N/V/D, ABD PAIN Time Seen by Provider: 09/05/22 13:27 Source: patient Mode of arrival: EMS Limitations: no limitations History of Present Illness HPI narrative: 32 yo female with hx of PTSD, COVID -19, anxiety, prior c section here with c/o upper abdominal pain vomiting x 3 days along with possible STI exposure. She thinks she might be because these symptoms are similar to prior. She denies sick contacts, abx or food exposures. MD elicited complaint: abdominal pain Onset (ago): day(s) (3) Pain Consistency: constant Location: epigastric Severity: moderate Quality: stabbing Radiation: none Migration to: no migration Exacerbating factors: eating Relieving factors: nothing Context: history of similar episodes and other (also concerned about STI exposure) Associated symptoms: nausea and vomiting Related Data Home Medications Medication Instructions Recorded Confirmed medroxyprogesterone 104 mg/0.65 mL 104 mg subcut [id number] 01/17/22 07/04/22 subcutaneous syringe (Depo-SubQ provera 104) ibuprofen 800 mg tablet 800 mg PO Q8H PRN 01/28/22 07/04/22 clonidine HCl 0.1 mg tablet 0.3 mg PO BEDTIME 07/04/22 07/04/22 colon magic See Rx Instructions .Route .COMPLEX 07/04/22 Previous Rx's Medication Instructions Recorded hydroxyzine HCl 25 mg tablet 25 mg PO TID PRN anxiety #84 tabs 03/06/22 medroxyprogesterone 150 mg/mL 150 mg IM [id number] 3 months #1 mL 03/08/22 intramuscular suspension (Depo-Provera) sumatriptan succinate 50 mg tablet 50 mg PO .QD PRN migraine headache 07/04/22 (Imitrex) #10 tabs escitalopram oxalate 10 mg tablet 10 mg PO DAILY #30 tabs 08/27/22 famotidine 20 mg tablet (Pepcid) 20 mg PO DAILY PRN abdominal 09/05/22 discomfort #30 tabs ondansetron 4 mg disintegrating 4 mg PO Q8H PRN nausea and 09/05/22 tablet vomiting #20 tabs Allergies Allergy/AdvReac Type Severity Reaction Status Date / Time codeine [CODEINE] Allergy Unknown NAUSEA & Verified 08/27/22 08:43 VOMITING Review of Systems Review of Systems Constitutional : No Weight loss, No Fever, No Chills ENT/Mouth : No sore throat, No Rhinorrhea Eyes: No Swelling, No Redness Cardiovascular : No Chest Pain, No SOB, NoEdema Respiratory : No Cough, No Sputum, No Wheezing Gastrointestinal : Positive Nausea, Positive Vomiting, positive Diarrhea, positive abdominal Pain, No Hematochezia, No Melena Genitourinary : No Dysuria, No Urinary Frequency, No Hematuria, No Urgency Musculoskeletal : No joint pain, No Myalgias, No Joint Swelling Skin : No Skin Lesions, No rash Neuro : pos Weakness, No Numbness, No Dizziness, No Headache Psych : No Anxiety/Panic, No Depression Heme/Lymph: No Bruising, No Lymphadenopathy Endocrine : No Polyuria, No Polydipsia All other systems reviewed and are negative. [facility] Past Medical History Medical History Abnormal uterine bleeding Constipation Depot contraception Hemoptysis Hospital discharge follow-up Iron deficiency anemia Muscle weakness Nicotine dependence test positive Screen for STD (sexually transmitted disease) Status post drug-induced Status post therapeutic Tobacco abuse Surgical History Hx of section Family History Family History (Updated 07/04/22 @ 15:39 by Tammy Lewis MD) Maternal Aunt Colon cancer Other Mental health disorder Social History Social History Housing: Apartment Alcohol intake: never Patient Tobacco Use Status: Current someday Tobacco user Years Smoked: stopped 04/2022 smokes marijuana e-Cigarette/Vaping Use: Never Used Use of substances other than those prescribed or required for medical reasons: Yes Substance Use Type: Marijuana Substance Use Frequency: Daily Last Used Substance: Hours (ago) Advance Directives: No Advance Directives Information Provided: No service: No Current occupational status: employed Gender identity: Female Cognitive needs: No Hearing needs: No Vision needs: No Physical Exam ED Vital Signs: Vital Signs - 24 hr 09/05/22 13:25 09/05/22 15:49 Temperature 98.6 F Pulse Rate 77 58 Respiratory Rate 16 16 Blood Pressure 127/88 137/90 H Pulse Oximetry 98 97 Oxygen Delivery Method Room Air Room Air BMI result Body Mass Index 33.3 Appearance: Alert. Oriented X3. No acute distress. Eyes: Pupils equal, round and reactive to light. ENT: Pharynx mild dry MM Neck: Normal inspection. Neck supple. CVS: Normal heart rate and rhythm. Pulses normal. Respiratory: No respiratory distress. Breath sounds normal. Abdomen: Soft and moderate epigastric ttp no rebound Skin: Skin warm and dry. Normal skin color. Normal skin turgor. Extremities: No lower extremity edema. No calf ttp Neuro: Oriented X 3. No motor deficit. No sensory deficit. Course Course Course Narrative: labs, urine and US negative still has nausea and pain - has small child with her attempting to find adult to stay with child pain on US but no stones and no signs of cholecystitis - has normal LFTs, lipase patient feels well enough to go home vomiting on way out, repeat zofran ordered - signed out to Sergio DIRECTOR OF [employer]/STAFF MIDWIFE MDM - Abdominal Pain MDM Narrative Medical decision making narrative: 32 yo female with hx of PTSD, COVID -19, anxiety, prior c section here with c/o upper abdominal pain and n/v/d x 3 days without known exposure. At this time labs, IVF, IV toradol/pepcid and nausea medications ordered. US to evaluate GB - dispo per results and findings. Lab Data Result diagrams: 09/05/22 14:25 09/05/22 14:25 Labs: Lab Results 09/05/22 09/05/22 09/05/22 Range/Units 13:36 13:36 14:25 WBC 8.6 (4.8-10.8) X10*3/uL RBC 5.00 (4.20-5.50) X10*6/uL Hgb 14.5 (12.0-16.0) g/dl Hct 43.1 (37.0-47.0) % MCV 86.2 (80.0-98.0) fL MCH 29.0 (27.0-33.0) pg MCHC 33.6 (31.0-35.0) g/dl RDW 12.6 (11.0-16.0) % Plt Count 294 (160-400) X10*3/uL MPV 9.8 (9.4-12.3) fL Immature Gran % (Auto) 0.3 (0.0-0.4) % Neut % (Auto) 77.3 H (45-73) % Lymph % (Auto) 15.0 L (20-40) % [place] % (Auto) 6.9 (2-11) % Eos % (Auto) 0.2 (0-4) % Baso % (Auto) 0.3 (0-2) % Lymph # (Auto) 1.3 (1.2-4.9) X10*3/uL [place] # (Auto) 0.6 (0.1-1.2) X10*3/uL Eos # (Auto) 0.0 (0.0-0.4) X10*3/uL Baso # (Auto) 0.0 (0.0-0.2) X10*3/uL Abs Immat Gran (auto) 0.03 (0.00-0.03) X10*3/uL Absolute Neuts (auto) 6.6 (2.0-8.3) x10*3/uL Absolute Nucleated RBC 0.000 (0.0-0.012) X10*3/uL Nucleated RBC % (auto) 0.0 (0.0-0.2) /100WBC Sodium (135-145) mmol/L Potassium (3.3-5.1) mmol/L Chloride (96-108) mmol/L Carbon Dioxide (22-29) mmol/L Anion Gap (12-20) BUN (9-16) mg/dL Creatinine (0.5-1.4) mg/dL Estim Creat Clear Calc Estimated GFR Random Glucose (60-115) mg/dL Calcium (8.4-10.2) mg/dL Magnesium (1.6-2.6) mg/dL Total Bilirubin (0.0-1.0) mg/dL Direct Bilirubin (0.0-0.5) mg/dL AST (5-31) U/L ALT (0-31) U/L Alkaline Phosphatase (39-117) U/L Total Protein (6.5-8.0) g/dL Albumin (3.5-5.0) g/dL Lipase (8-78) U/L Beta HCG, Quant mIU/mL Urine Color Dark Yellow Urine Appearance Cloudy Urine pH >= 9.0 (5.0-9.0) Ur Specific [place] >= 1.030 H (1.005-1.025) Urine Protein 100 (2+) H (Neg-Trace) mg/dL Urine Glucose (UA) Negative (Negative) mg/dL Urine Ketones 80 (Negative) mg/dL Urine Blood Negative (Negative) Urine Nitrite Negative (Negative) Ur Leukocyte Esterase Trace H (Negative) Urine RBC 0-2 (0-2) /HPF Urine WBC 0-5 (0-5) /HPF Ur Squamous Epith Cells 11-20 (0-2) /HPF Urine Bacteria Trace (None Seen) Hyaline Casts 0-2 (0-2) /LPF Urine Test NEGATIVE (NEGATIVE) COVID-19 (DELL) (Negative) COVID-19 Clin Com 09/05/22 09/05/22 Range/Units 14:25 14:25 WBC (4.8-10.8) X10*3/uL RBC (4.20-5.50) X10*6/uL Hgb (12.0-16.0) g/dl Hct (37.0-47.0) % MCV (80.0-98.0) fL MCH (27.0-33.0) pg MCHC (31.0-35.0) g/dl RDW (11.0-16.0) % Plt Count (160-400) X10*3/uL MPV (9.4-12.3) fL Immature Gran % (Auto) (0.0-0.4) % Neut % (Auto) (45-73) % Lymph % (Auto) (20-40) % [place] % (Auto) (2-11) % Eos % (Auto) (0-4) % Baso % (Auto) (0-2) % Lymph # (Auto) (1.2-4.9) X10*3/uL [place] # (Auto) (0.1-1.2) X10*3/uL Eos # (Auto) (0.0-0.4) X10*3/uL Baso # (Auto) (0.0-0.2) X10*3/uL Abs Immat Gran (auto) (0.00-0.03) X10*3/uL Absolute Neuts (auto) (2.0-8.3) x10*3/uL Absolute Nucleated RBC (0.0-0.012) X10*3/uL Nucleated RBC % (auto) (0.0-0.2) /100WBC Sodium 143 (135-145) mmol/L Potassium 4.0 D (3.3-5.1) mmol/L Chloride 105 (96-108) mmol/L Carbon Dioxide 25 (22-29) mmol/L Anion Gap 17 (12-20) BUN 11 (9-16) mg/dL Creatinine 0.86 (0.5-1.4) mg/dL Estim Creat Clear Calc 106.4 Estimated GFR > 60 Random Glucose 98 (60-115) mg/dL Calcium 9.9 (8.4-10.2) mg/dL Magnesium 2.2 (1.6-2.6) mg/dL Total Bilirubin 0.7 (0.0-1.0) mg/dL Direct Bilirubin 0.3 (0.0-0.5) mg/dL AST 15 (5-31) U/L ALT 13 (0-31) U/L Alkaline Phosphatase 69 (39-117) U/L Total Protein 8.2 H (6.5-8.0) g/dL Albumin 5.0 (3.5-5.0) g/dL Lipase 20 (8-78) U/L Beta HCG, Quant < 2 mIU/mL Urine Color Urine Appearance Urine pH (5.0-9.0) Ur Specific [place] (1.005-1.025) Urine Protein (Neg-Trace) mg/dL Urine Glucose (UA) (Negative) mg/dL Urine Ketones (Negative) mg/dL Urine Blood (Negative) Urine Nitrite (Negative) Ur Leukocyte Esterase (Negative) Urine RBC (0-2) /HPF Urine WBC (0-5) /HPF Ur Squamous Epith Cells (0-2) /HPF Urine Bacteria (None Seen) Hyaline Casts (0-2) /LPF Urine Test (NEGATIVE) COVID-19 (DELL) Negative (Negative) COVID-19 Clin Com See Note Discharge Plan Discharge Clinical Impression: Abdominal pain Qualifiers: Abdominal location: epigastric Qualified Code(s): R10.13 - Epigastric pain Vomiting Qualifiers: Vomiting type: unspecified Nausea presence: with nausea Qualified Code(s): R11.2 - Nausea with vomiting, unspecified Gastritis Qualifiers: Gastritis type: unspecified gastritis Chronicity: acute Gastritis bleeding: without bleeding Qualified Code(s): K29.00 - Acute gastritis without bleeding Patient Disposition: Still a Patient Instructions: Gastritis (ED), Acute Nausea and Vomiting (ED), Abdominal Pain (ED) Additional Instructions: return to ED for any worsening symptoms or concerns avoid alcohol, spicy and greasy foods no stones seen on Ultrasound and no signs of infection on ultrasound labs of kidneys, liver, pancreas normal, no urinary tract infection STD testing if positive comes back in 1 to 3 days we will call you if positive Prescriptions: New famotidine [Pepcid] 20 mg tablet 20 mg PO DAILY PRN (Reason: abdominal discomfort) Qty: 30 0RF ondansetron 4 mg tablet,disintegrating 4 mg PO Q8H PRN (Reason: nausea and vomiting) Qty: 20 0RF No Action hydroxyzine HCl 25 mg tablet 25 mg PO TID PRN (Reason: anxiety) Qty: 84 5RF medroxyprogesterone [Depo-Provera] 150 mg/mL suspension 150 mg IM [id number] 90 Days Qty: 1 1RF clonidine HCl 0.1 mg tablet 0.3 mg PO BEDTIME colon magic See Rx Instructions .ROUTE .COMPLEX Rx Instructions: 2 tab s BID; sumatriptan succinate [Imitrex] 50 mg tablet 50 mg PO .QD PRN (Reason: migraine headache) Qty: 10 3RF Rx Instructions: do not exceed 4 doses per 24 hrs ibuprofen 800 mg tablet 800 mg PO Q8H PRN escitalopram oxalate 10 mg tablet 10 mg PO DAILY Qty: 30 1RF Depo-SubQ provera 104 104 mg/0.65 mL syringe 104 mg subcut [id number] Stand Alone Forms: Work/School Release
[2022-09-05 13:52] LABS: Appearance Urine Cloudy; Color Urine Dark Yellow; Glucose Urine UA Negative (Negative); Leukocyte Esterase Urine Trace (Negative); Nitrite Urine Negative (Negative); PH >= 9.0 (5.0-9.0); Specific Gravity - Urine >= 1.030 (1.005-1.025); UMIC TRIGGER UACC YES; Urine Blood Negative (Negative); Urine Ketones 80 mg/dL (Negative); Urine Protein 100 (2+) mg/dL (Neg-Trace)
[2022-09-05 13:55] LABS: UPreg QC Valid YES; Urine Pregnancy NEGATIVE (NEGATIVE)
[2022-09-05 14:11] LABS: Bacteria Urine Trace (None Seen); Hyaline Casts Urine 0-2 /LPF (0-2); RBC Urine 0-2 /HPF (0-2); WBC Urine 0-5 /HPF (0-5)
[2022-09-05 14:30] LABS: MANUAL DIFF FLAG NO
[2022-09-05 14:34] LABS: Basophils Percent Auto 0.3 % (0-2); Eosinophils Percent Auto 0.2 % (0-4); Hematocrit 43.1 % (37.0-47.0); Hemoglobin 14.5 g/dl (12.0-16.0); Imm Gran Abs Auto 0.03 X10*3/uL (0.00-0.03); Imm Gran Pct Auto 0.3 % (0.0-0.4); Lymphocytes Absolute Auto 1.3 X10*3/uL (1.2-4.9); Mean Corpuscular HGB Conc 33.6 g/dl (31.0-35.0); Mean Corpuscular Volume 86.2 fL (80.0-98.0); Mean Platelet Volume 9.8 fL (9.4-12.3); Monocytes Absolute Auto 0.6 X10*3/uL (0.1-1.2); Monocytes Percent Auto 6.9 % (2-11); Neutrophils Absolute Auto 6.6 x10*3/uL (2.0-8.3); Neutrophils Percent Auto 77.3 % (45-73); Platelet Count 294 X10*3/uL (160-400); Red Cell Distribution Width 12.6 % (11.0-16.0); White Blood Count 8.6 X10*3/uL (4.8-10.8)
[2022-09-05] MEDS: 0.9 % Sodium Chloride 1,000 ML 999 ML IVCONT ×2 (14:40→15:55)
[2022-09-05] MEDS: ondansetron HCL 4 MG/2 ML VIAL IVPUSH ×2 (14:41→16:47)
[2022-09-05] MEDS: Famotidine/PF 20 MG/2 ML VIAL IVPUSH (14:41)
[2022-09-05] MEDS: Ketorolac Tromethamine 30 MG/ML VIAL IVPUSH (14:41)
[2022-09-05 14:57] LABS: Alanine Aminotransferase 13 U/L (0-31); Alkaline Phosphatase 69 U/L (39-117); Anion Gap 17 (12-20); Aspartate Amino Transferase 15 U/L (5-31); Bilirubin Direct 0.3 mg/dL (0.0-0.5); Bilirubin Total 0.7 mg/dL (0.0-1.0); Blood Urea Nitrogen 11 mg/dL (9-16); Calcium 9.9 mg/dL (8.4-10.2); Carbon Dioxide 25 mmol/L (22-29); Chloride 105 mmol/L (96-108); Creatinine Clr Calc Pharmacy 106.4; Estimated Glomerular Filt Rate > 60; Glucose Random 98 mg/dL (60-115); Lipase 20 U/L (8-78); Magnesium 2.2 mg/dL (1.6-2.6); Sodium 143 mmol/L (135-145); Total Protein 8.2 g/dL (6.5-8.0)
[2022-09-05 14:58] LABS: COVID-19 Test Negative (Negative); IDNOW Serial# 16C4AD1C
[2022-09-05 15:03] LABS: HCG Quantitative < 2 mIU/mL
[2022-09-05 15:49] VITALS: BP 137/90; PULSE 58; RESP 16; TEMP 37; O2SAT 97
[2022-09-05] MEDS: Magnesium Hydrox/Alum Hydrox 30 ML ORAL.SUSP 15 ML PO (16:11)
[2022-09-05] MEDS: Lidocaine HCl Viscous 2 % 15 ML SOLUTION MUCOUS MEM (16:11)
[2022-09-05 16:17] LABS: Amphetamine Screen Urine Not Detected (Not Detect); Barbiturates, Urine Not Detected (Not Detect); Benzodiazepines Screen Urine Not Detected (Not Detect); Cannabinoid Screen Urine POSITIVE (Not Detect); Cocaine Screen Urine Not Detected (Not Detect); Fentanyl, urine Not Detected (Not Detect); Opiate Screen Urine Not Detected (Not Detect); Phencyclidine Screen Urine Not Detected (Not Detect)
[2022-09-05 17:22] LABS: CT PCR NOT DETECTED (Not Detect.); NG PCR NOT DETECTED (Not Detect.)
== END 2022-09-05 17:11 | disposition home or self-care (01) ==
PROVIDERS: Emergency Provider Emergency Medicine; PCP Internal Medicine
DX: K29.00 Acute gastritis without bleeding (principal); R10.13 Epigastric pain; R11.2 Nausea with vomiting, unspecified; F12.90 Cannabis use, unspecified, uncomplicated; Z20.822 Contact with and (suspected) exposure to COVID-19; Z79.899 Other long term (current) drug therapy
CPT/HCPCS: 76705; 80048; 80076; 80307; 81001; 81025; 83690; 83735; 84702; 85025; 87491; 87591; 87635; 96361; 96374; 96375; 96376; 99284; J1885; J2405

== ENCOUNTER 2022-09-06 01:54 | Emergency (ER) | payer OTHER, SELFPAY ==
[2022-09-06 02:07] VITALS: BP 139/89; PULSE 66; RESP 17; TEMP 36.8; O2SAT 99; BMI 31.6
[2022-09-06 02:57] VITALS: BP 123/85; PULSE 62; RESP 16; TEMP 37.1; O2SAT 99
--- NOTE | 2022-09-06 03:53 | ED.ABDPAIN ---
HPI - Abdominal Pain General Chief Complaint: Abdominal Pain Stated Complaint: gastritis Time Seen by Provider: 09/06/22 03:18 Source: patient Mode of arrival: ambulatory Limitations: no limitations History of Present Illness HPI narrative: Patient increased anxiety cannabis use with was seen earlier for upper abdominal pain with workup negative diagnosis gastritis comes back as she is still having pain and anxiety patient had ultrasound of the abdomen done which was also normal Related Data Home Medications Medication Instructions Recorded Confirmed medroxyprogesterone 104 mg/0.65 mL 104 mg subcut [id number] 01/17/22 07/04/22 subcutaneous syringe (Depo-SubQ provera 104) ibuprofen 800 mg tablet 800 mg PO Q8H PRN 01/28/22 07/04/22 clonidine HCl 0.1 mg tablet 0.3 mg PO BEDTIME 07/04/22 07/04/22 colon magic See Rx Instructions .Route .COMPLEX 07/04/22 Previous Rx's Medication Instructions Recorded hydroxyzine HCl 25 mg tablet 25 mg PO TID PRN anxiety #84 tabs 03/06/22 medroxyprogesterone 150 mg/mL 150 mg IM [id number] 3 months #1 mL 03/08/22 intramuscular suspension (Depo-Provera) sumatriptan succinate 50 mg tablet 50 mg PO .QD PRN migraine headache 07/04/22 (Imitrex) #10 tabs escitalopram oxalate 10 mg tablet 10 mg PO DAILY #30 tabs 08/27/22 famotidine 20 mg tablet (Pepcid) 20 mg PO DAILY PRN abdominal 09/05/22 discomfort #30 tabs ondansetron 4 mg disintegrating 4 mg PO Q8H PRN nausea and 09/05/22 tablet vomiting #20 tabs lorazepam 1 mg tablet (Ativan) 1 mg PO BID PRN anxiety #7 tabs 09/06/22 ondansetron 4 mg disintegrating 4 mg PO Q6-8H PRN nausea and 09/06/22 tablet vomiting #14 tabs Allergies Allergy/AdvReac Type Severity Reaction Status Date / Time codeine [CODEINE] Allergy Unknown NAUSEA & Verified 09/06/22 02:10 VOMITING Review of Systems Review of Systems Yes all other systems are reviewed and are negative PMFSH Past Medical History Medical History Abnormal uterine bleeding Constipation Depot contraception Hemoptysis Hospital discharge follow-up Iron deficiency anemia Muscle weakness Nicotine dependence test positive Screen for STD (sexually transmitted disease) Status post drug-induced Status post therapeutic Tobacco abuse Surgical History Hx of section Family History Family History Maternal Aunt Colon cancer Other Mental health disorder Social History Social History Housing: Apartment Alcohol intake: never Patient Tobacco Use Status: Current someday Tobacco user Years Smoked: stopped 04/2022 smokes marijuana e-Cigarette/Vaping Use: Never Used Substance Use Type: Marijuana Advance Directives: No Advance Directives Information Provided: No service: No Current occupational status: employed Gender identity: Female Cognitive needs: No Hearing needs: No Vision needs: No Physical Exam ED Vital Signs: Vital Signs - 24 hr 09/06/22 02:07 09/06/22 02:57 Temperature 98.2 F 98.7 F Pulse Rate 66 62 Respiratory Rate 17 16 Blood Pressure 139/89 123/85 Pulse Oximetry 99 99 Oxygen Delivery Method Room Air Room Air BMI result Body Mass Index 31.6 Appearance: Alert. Oriented X3. No acute distress. Anxious Eyes: No pallor or icterus ENT: Pharynx normal. Oral Mucosa moist Neck: Normal inspection. Neck supple. CVS: Normal heart rate and rhythm. Pulses normal. Respiratory: No respiratory distress. Equal air entry bilateral, no wheezing/rales/rhonchi Abdomen: Soft and epigastric tenderness. Bowel sounds are present, no mass palpable, no CVA tenderness Skin: Skin warm and dry. Normal skin color. Normal skin turgor. Extremities: No lower extremity edema. No calf tenderness Neuro: Oriented X 3. No motor deficit. MDM - Abdominal Pain MDM Narrative Medical decision making narrative: Patient anxiety cannabis use likely the cause of gastritis will give Ativan Compazine try p.o. challenge Discharge Plan Discharge Clinical Impression: Cannabis abuse with cannabis-induced anxiety disorder, Vomiting Patient Disposition: Home, Self-Care Instructions: Acute Nausea and Vomiting (ED), Cannabis Abuse (ED) Additional Instructions: Stop smoking cannabis Medication as advised for vomiting Prescriptions: New lorazepam [Ativan] 1 mg tablet 1 mg PO BID PRN (Reason: anxiety) Qty: 7 0RF ondansetron 4 mg tablet,disintegrating 4 mg PO Q6-8H PRN (Reason: nausea and vomiting) Qty: 14 0RF No Action hydroxyzine HCl 25 mg tablet 25 mg PO TID PRN (Reason: anxiety) Qty: 84 5RF medroxyprogesterone [Depo-Provera] 150 mg/mL suspension 150 mg IM [id number] 90 Days Qty: 1 1RF famotidine [Pepcid] 20 mg tablet 20 mg PO DAILY PRN (Reason: abdominal discomfort) Qty: 30 0RF ondansetron 4 mg tablet,disintegrating 4 mg PO Q8H PRN (Reason: nausea and vomiting) Qty: 20 0RF clonidine HCl 0.1 mg tablet 0.3 mg PO BEDTIME colon magic See Rx Instructions .ROUTE .COMPLEX Rx Instructions: 2 tab s BID; sumatriptan succinate [Imitrex] 50 mg tablet 50 mg PO .QD PRN (Reason: migraine headache) Qty: 10 3RF Rx Instructions: do not exceed 4 doses per 24 hrs ibuprofen 800 mg tablet 800 mg PO Q8H PRN escitalopram oxalate 10 mg tablet 10 mg PO DAILY Qty: 30 1RF Depo-SubQ provera 104 104 mg/0.65 mL syringe 104 mg subcut [id number]
[2022-09-06] MEDS: Prochlorperazine Maleate 5 MG TABLET 10 MG PO (04:44)
[2022-09-06] MEDS: LORazepam 1 MG TABLET 2 MG PO (04:44)
== END 2022-09-06 07:22 | disposition home or self-care (01) ==
PROVIDERS: Emergency Provider Internal Medicine
DX: F12.180 Cannabis abuse with cannabis-induced anxiety disorder (principal); K29.00 Acute gastritis without bleeding; Z79.899 Other long term (current) drug therapy
CPT/HCPCS: 99283

== ENCOUNTER 2022-09-17 14:25 | Emergency (ER) | payer OTHER, SELFPAY ==
[2022-09-17 14:35] VITALS: BP 112/76; PULSE 74; O2SAT 99
--- NOTE | 2022-09-17 14:36 | PC.NURSE ---
PT ARRIVED VIA EMS AND WAS ASSESSED AND SENT TO EXTERNAL TRIAGE. SHE BECAME AGITATED AND YELLING AT STAFF, SHE WAS THREATENING AND VERBALLY INAPPROPRIATE. SHE THEN AMBULATED OUT OF THE ED, YELLING AT SECURITY AND STAFF.
== END 2022-09-17 14:55 | disposition left against medical advice (07) ==
PROVIDERS: Emergency Provider Emergency Medicine
DX: R10.9 Unspecified abdominal pain (principal); R45.1 Restlessness and agitation

== ENCOUNTER 2022-09-17 15:33 | Emergency (ER) | payer OTHER, SELFPAY ==
[2022-09-17 15:52] VITALS: RESP 24; BMI 30.7
--- NOTE | 2022-09-17 15:55 | PC.NURSE ---
unable to assess vitals in triage
[2022-09-17 16:01] VITALS: BP 130/70; PULSE 67; O2SAT 100
--- NOTE | 2022-09-17 16:16 | ED.NAVMDI ---
HPI - Nausea/Vomiting/Diarrhea General Chief complaint: Nausea/Vomiting/Diarrhea Stated complaint: ABD PAIN,SEEN MULTI TIMES FOR SAME PER EMS Time Seen by Provider: 09/17/22 16:14 Source: patient Mode of arrival: EMS Limitations: no limitations History of Present Illness HPI Narrative: Patient with cannabis induced vomiting anxiety bit him multiple times was seen here last in 09/05 seen comes here feeling anxious hyperventilating vomiting all day today says that patient been sick since she was discharged last week. Patient is still using marijuana Related Data Home Medications Medication Instructions Recorded Confirmed medroxyprogesterone 104 mg/0.65 mL 104 mg subcut [id number] 01/17/22 07/04/22 subcutaneous syringe (Depo-SubQ provera 104) ibuprofen 800 mg tablet 800 mg PO Q8H PRN 01/28/22 07/04/22 colon magic See Rx Instructions .Route .COMPLEX 07/04/22 Previous Rx's Medication Instructions Recorded hydroxyzine HCl 25 mg tablet 25 mg PO TID PRN anxiety #84 tabs 03/06/22 medroxyprogesterone 150 mg/mL 150 mg IM [id number] 3 months #1 mL 03/08/22 intramuscular suspension (Depo-Provera) sumatriptan succinate 50 mg tablet 50 mg PO .QD PRN migraine headache 07/04/22 (Imitrex) #10 tabs escitalopram oxalate 10 mg tablet 10 mg PO DAILY #30 tabs 08/27/22 famotidine 20 mg tablet (Pepcid) 20 mg PO DAILY PRN abdominal 09/05/22 discomfort #30 tabs ondansetron 4 mg disintegrating 4 mg PO Q8H PRN nausea and 09/05/22 tablet vomiting #20 tabs lorazepam 1 mg tablet (Ativan) 1 mg PO BID PRN anxiety #7 tabs 09/06/22 prochlorperazine maleate 10 mg 10 mg PO Q6H PRN nausea and 09/06/22 tablet (Compazine) vomiting #14 tabs clonidine HCl 0.1 mg tablet 0.3 mg PO BEDTIME #180 tabs 09/17/22 lorazepam 1 mg tablet (Ativan) 1 mg PO TID PRN anxiety #14 tabs 09/17/22 prochlorperazine maleate 10 mg 10 mg PO Q8H PRN nausea and 09/17/22 tablet (Compazine) vomiting #14 tabs Allergies Allergy/AdvReac Type Severity Reaction Status Date / Time codeine [CODEINE] Allergy Unknown NAUSEA & Verified 09/06/22 02:10 VOMITING Review of Systems Review of Systems: Yes all other systems are reviewed and are negative [facility] Past Medical History Medical History Abnormal uterine bleeding Constipation Depot contraception Hemoptysis Hospital discharge follow-up Iron deficiency anemia Muscle weakness Nicotine dependence test positive Screen for STD (sexually transmitted disease) Status post drug-induced Status post therapeutic Tobacco abuse Surgical History Hx of section Family History Family History Maternal Aunt Colon cancer Other Mental health disorder Social History Social History Housing: Apartment Alcohol intake: never Patient Tobacco Use Status: Current someday Tobacco user Years Smoked: stopped 04/2022 smokes marijuana e-Cigarette/Vaping Use: Never Used Substance Use Type: Marijuana Advance Directives: No Advance Directives Information Provided: Yes service: No Current occupational status: employed Gender identity: Female Cognitive needs: No Hearing needs: No Vision needs: No Physical Exam Vital Signs: Vital Signs: Last Vital Signs Pulse 67 09/17/22 16:01 Resp 24 H 09/17/22 15:52 BP 130/70 09/17/22 16:01 Pulse Ox 100 09/17/22 16:01 O2 Del Method 09/17/22 16:01 BMI result Body Mass Index 30.7 Appearance: Alert. Oriented X3. Panic hyperventilating Eyes: PERRLA, No Nystagmus ENT: Pharynx normal. Oral Mucosa moist Neck: Normal inspection. Neck supple. CVS: Normal heart rate and rhythm. Pulses normal. Respiratory: No respiratory distress. Equal air entry bilateral, no wheezing/rales/rhonchi Abdomen: Soft diffuse abdominal tenderness. Bowel sounds are present, no mass palpable, no CVA tenderness Skin: Skin warm and dry. Normal skin color. Normal skin turgor. Extremities: No lower extremity edema. No calf tenderness Neuro: Oriented X 3. Course Reevaluation(s) Reevaluation #1: Patient received multiple medications for anxiety Versed IV Compazine IV and Haldol IV for nausea and vomiting feeling much better now lacks would like to go able to take p.o. fluids Time: 23:40 Medications Administered Discontinued Medications Generic Name Dose Route Start Last Admin Trade Name Shin PRN Reason Stop Dose Admin Haloperidol Lactate 2 mg 09/17/22 20:43 09/17/22 21:30 Haloperidol Lactate 5 Mg/Ml Vial IVPUSH 09/17/22 20:44 2 mg STAT STA Administration Sodium Chloride 1,000 mls @ 999 mls/hr 09/17/22 16:15 09/17/22 18:17 Ns IV 09/17/22 17:15 Infused .Q1H1M ONE Infusion Sodium Chloride 1,000 mls @ 999 mls/hr 09/17/22 17:49 09/17/22 21:32 Ns IV 09/17/22 18:49 Infused .Q1H1M ONE Infusion Midazolam HCl 1 mg 09/17/22 16:15 09/17/22 17:11 Midazolam Hcl/Pf 2 Mg/2 Ml Vial IVPUSH 09/17/22 16:16 1 mg ONCE ONE Administration Midazolam HCl 1 mg 09/17/22 17:48 09/17/22 18:17 Midazolam Hcl/Pf 2 Mg/2 Ml Vial IVPUSH 09/17/22 17:49 1 mg ONCE ONE Administration Prochlorperazine Edisylate 10 mg 09/17/22 16:15 09/17/22 17:11 Prochlorperazine Edisylate 10 Mg/2 Ml Vial IVPUSH 09/17/22 16:16 10 mg ONCE ONE Administration MDM - Nausea/Vomiting/Diarrhea MDM Narrative Medical decision making narrative: Patient with severe anxiety/panic attack with history of marijuana abuse very dramatic in the ER IV line was placed IV Versed and Compazine was given patient started feeling better will check the labs Lab Data Labs: Lab Results 09/17/22 Range/Units 19:09 COVID-19 (DELL) Negative (Negative) COVID-19 Clin Com See Note Discharge Plan Discharge Clinical Impression: Cyclic vomiting syndrome, Cannabis abuse with cannabis-induced anxiety disorder Patient Disposition: Home, Self-Care Instructions: Acute Nausea and Vomiting (ED), Cannabis Abuse (ED) Additional Instructions: Stop using cannabis Take medication as prescribed Prescriptions: New prochlorperazine maleate [Compazine] 10 mg tablet 10 mg PO Q8H PRN (Reason: nausea and vomiting) Qty: 14 0RF lorazepam [Ativan] 1 mg tablet 1 mg PO TID PRN (Reason: anxiety) Qty: 14 0RF No Action hydroxyzine HCl 25 mg tablet 25 mg PO TID PRN (Reason: anxiety) Qty: 84 5RF medroxyprogesterone [Depo-Provera] 150 mg/mL suspension 150 mg IM [id number] 90 Days Qty: 1 1RF clonidine HCl 0.1 mg tablet 0.3 mg PO BEDTIME Qty: 180 0RF famotidine [Pepcid] 20 mg tablet 20 mg PO DAILY PRN (Reason: abdominal discomfort) Qty: 30 0RF ondansetron 4 mg tablet,disintegrating 4 mg PO Q8H PRN (Reason: nausea and vomiting) Qty: 20 0RF lorazepam [Ativan] 1 mg tablet 1 mg PO BID PRN (Reason: anxiety) Qty: 7 0RF prochlorperazine maleate [Compazine] 10 mg tablet 10 mg PO Q6H PRN (Reason: nausea and vomiting) Qty: 14 0RF colon magic See Rx Instructions .ROUTE .COMPLEX Rx Instructions: 2 tab s BID; sumatriptan succinate [Imitrex] 50 mg tablet 50 mg PO .QD PRN (Reason: migraine headache) Qty: 10 3RF Rx Instructions: do not exceed 4 doses per 24 hrs ibuprofen 800 mg tablet 800 mg PO Q8H PRN escitalopram oxalate 10 mg tablet 10 mg PO DAILY Qty: 30 1RF Depo-SubQ provera 104 104 mg/0.65 mL syringe 104 mg subcut [id number]
[2022-09-17] MEDS: 0.9 % Sodium Chloride 1,000 ML 999 ML IV ×2 (17:11→18:17)
[2022-09-17] MEDS: Midazolam HCl/PF 2 MG/2 ML VIAL 1 MG IVPUSH ×2 (17:11→18:17)
[2022-09-17] MEDS: Prochlorperazine Edisylate 10 MG/2 ML VIAL IVPUSH (17:11)
--- NOTE | 2022-09-17 17:14 | PC.NURSE ---
Pt found standing in [place] outside of room naked and incontinent of large amt of loose stool . Pt redirected back to bedside. Pt able to wash self, bed linen changed. call rodriguez within reach. Pt continues to scream for help even with this tech present . Dr García aware.
[2022-09-17 20:10] LABS: COVID-19 Test Negative (Negative); IDNOW Serial# 16C4AD1C
[2022-09-17] MEDS: Haloperidol Lactate 5 MG/ML VIAL 2 MG IVPUSH (21:30)
--- NOTE | 2022-09-17 23:41 | PC.NURSE ---
pt approached 2 times for blood draw, pt states you aint getting any blood out of me . Second attempt paint states you7 cant take my blood. This rewriter attempted to get vital signs and patient refused stating that she is too nauseated.
--- NOTE | 2022-09-17 23:43 | PC.NURSE ---
Patient refusing labs, and vitals. Patient states is better to go home.
== END 2022-09-17 23:50 | disposition home or self-care (01) ==
PROVIDERS: Emergency Provider Internal Medicine
DX: R11.15 Cyclical vomiting syndrome unrelated to migraine (principal); F12.180 Cannabis abuse with cannabis-induced anxiety disorder; F17.200 Nicotine dependence, unspecified, uncomplicated; Z20.822 Contact with and (suspected) exposure to COVID-19; Z79.899 Other long term (current) drug therapy
CPT/HCPCS: 87635; 96361; 96374; 96375; 96376; 99283; 99285; J2250

== ENCOUNTER → 2022-10-30 13:50 | Outpatient (BNVA) | payer OTHER, SELFPAY | PROVIDERS: PCP Internal Medicine; Visit Provider Internal Medicine Endocrinology, Diabetes & Metabolism | DX: R79.89 Other specified abnormal findings of blood chemistry (principal) | CPT/HCPCS: 99202 ==

== ENCOUNTER 2022-11-06 12:39 | Outpatient (REF) | payer OTHER, SELFPAY ==
[2022-11-06 13:54] LABS: Alanine Aminotransferase 12 U/L (0-31); Albumin Level 4.7 g/dL (3.5-5.0); Alkaline Phosphatase 64 U/L (39-117); Anion Gap 12 (12-20); Aspartate Amino Transferase 11 U/L (5-31); Bilirubin Total 0.6 mg/dL (0.0-1.0); Blood Urea Nitrogen 8 mg/dL (9-16); Calcium 9.6 mg/dL (8.4-10.2); Carbon Dioxide 25 mmol/L (22-29); Chloride 106 mmol/L (96-108); Estimated Glomerular Filt Rate > 60; Glucose Random 95 mg/dL (60-115); Potassium 4.1 mmol/L (3.3-5.1); Sodium 139 mmol/L (135-145); Total Protein 7.3 g/dL (6.5-8.0)
[2022-11-11 11:33] LABS: Metanephrine, Free 110 pg/mL (<=57); Normetanephrines, Free 125 pg/mL (<=148); Total Metanephrine, Free 235 pg/mL (<=205)
== END 2022-11-06 12:40 | disposition home or self-care (01) ==
LOC: HO.LAB 12:39
PROVIDERS: Nurse Practitioner Family; PCP Internal Medicine; Visit Provider Internal Medicine Endocrinology, Diabetes & Metabolism
DX: Z13.29 Encounter for screening for other suspected endocrine disorder (principal); F32.2 Major depressive disorder, single episode, severe without psychotic features; R79.89 Other specified abnormal findings of blood chemistry
CPT/HCPCS: 36415; 80053; 83835; 84443

== ENCOUNTER 2022-11-15 10:52 | Outpatient (REF) | payer OTHER, SELFPAY ==
[2022-11-15 11:57] LABS: Creatinine, mg/dL 90.21
[2022-11-15 13:06] LABS: Creatinine, 24Hr Urine 1.1 G/Day (1.0-2.0); Total Volume 24 Hour Urine 1200 mL
[2022-11-21 12:47] LABS: Metanephrine, Free 24U 192 mcg/24 h (36-190); Normetanephrine, Free 24U 258 mcg/24 h (35-482); Total Metanephrine, Free 24U 450 mcg/24 h (115-695); Total Volume 24U 1200 mL
== END 2022-11-15 10:53 | disposition home or self-care (01) ==
LOC: HO.LNP 10:52
PROVIDERS: Visit Provider Internal Medicine Endocrinology, Diabetes & Metabolism
DX: R79.89 Other specified abnormal findings of blood chemistry (principal)
CPT/HCPCS: 82570; 83835

== ENCOUNTER → 2022-12-16 14:12 | Outpatient (BNVA) | payer OTHER, SELFPAY | PROVIDERS: PCP Internal Medicine; Visit Provider Obstetrics & Gynecology | DX: Z30.09 Encounter for other general counseling and advice on contraception (principal) | CPT/HCPCS: 96372; 99212 ==

== ENCOUNTER → 2022-12-23 10:26 | Outpatient (BNVA) | payer OTHER, SELFPAY | PROVIDERS: PCP Internal Medicine; Visit Provider Physician Assistant | DX: K52.9 Noninfective gastroenteritis and colitis, unspecified (principal); R11.2 Nausea with vomiting, unspecified | CPT/HCPCS: 99202 ==

== ENCOUNTER 2023-03-06 15:26 | Outpatient (REF) | payer OTHER, SELFPAY ==
[2023-03-13 07:24] LABS: HPV mRNA E6/E7 rflx Not Detected (Not Detected)
== END 2023-03-06 15:27 | disposition home or self-care (01) ==
LOC: HO.LNP 15:26
PROVIDERS: PCP Internal Medicine; Visit Provider Obstetrics & Gynecology
DX: Z01.419 Encounter for gynecological examination (general) (routine) without abnormal findings (principal); Z87.42 Personal history of other diseases of the female genital tract; Z11.51 Encounter for screening for human papillomavirus (HPV)
CPT/HCPCS: 87624; 88142

== ENCOUNTER → 2023-03-07 14:54 | Outpatient (BNVA) | payer OTHER, SELFPAY | PROVIDERS: PCP Internal Medicine; Visit Provider Obstetrics & Gynecology | DX: N93.9 Abnormal uterine and vaginal bleeding, unspecified (principal) | CPT/HCPCS: 96372; 99211 ==

== ENCOUNTER 2023-03-13 12:34 | Day surgery (SDC) | payer OTHER, SELFPAY ==
[2023-03-10 16:47] VITALS: BMI 27.9
--- NOTE | 2023-03-12 10:02 | HO.ANESPROP2 ---
HPI - Anesthesia Eval Consult details Narrative: 33yo F for Upper Endoscopy PMFSH Active Problems Active Problems: All Active Problems (Updated 03/06/23 @ 15:54 by Milad Varela MD) History of abnormal cervical Pap smear (Acute) Well woman exam (Acute) Dental infection (Acute) Family planning initiation (Acute) Elevated plasma metanephrines (Acute) Enterocolitis (Acute) Nausea & vomiting (Acute) Cannabis abuse with other cannabis-induced disorder (Acute) Post-traumatic stress disorder (Acute) COVID-19 virus infection (Acute) Migraine (Acute) Annual physical exam (Acute) Bacterial vaginosis (Acute) Hyperkalemia (Acute) Pelvic pain (Acute) Vitamin D deficiency (Acute) Severe major depression (Acute) Insomnia (Acute) Generalized anxiety disorder (Acute) Abnormal uterine bleeding (Acute) Latent tuberculosis by blood test (Acute) Past Medical History Medical History Abnormal uterine bleeding Constipation Depot contraception Hemoptysis Hospital discharge follow-up Iron deficiency anemia Muscle weakness Nicotine dependence test positive Screen for STD (sexually transmitted disease) Status post drug-induced Status post therapeutic Tobacco abuse Family History Family History Maternal Aunt Colon cancer Other Mental health disorder Surgical History Surgical History Hx of section Social History Social History Housing: Apartment Alcohol intake: never Patient Tobacco Use Status: Current everyday Tobacco user Cigarettes Per Day: 7 Years Smoked: stopped 04/2022 smokes marijuana e-Cigarette/Vaping Use: Never Used Substance Use Type: Marijuana service: No Current occupational status: employed Gender identity: Female Cognitive needs: No Hearing needs: No Vision needs: No Meds Allergies Allergy/AdvReac Type Severity Reaction Status Date / Time codeine [CODEINE] Allergy Unknown NAUSEA & Verified 03/06/23 15:40 VOMITING Home Medications Medication Instructions Recorded Confirmed Last Taken Type gabapentin 100 mg capsule 100 mg PO BID 03/06/23 03/13/23 11:00 History Exam Exam Date and Time: March 12, 2023 1002 Height,Weight and Vital Signs: Height 5 ft 6 in Weight 78.471 kg Assessment and Plan Assessment Anesthesia Assessment: Chart Reviewed
[2023-03-13 12:58] LABS: UPreg QC Valid YES; Urine Pregnancy NEGATIVE (NEGATIVE)
--- NOTE | 2023-03-13 13:02 | HO.ANESPROP2 ---
[facility] Active Problems Active Problems: All Active Problems (Updated 03/06/23 @ 15:54 by Milad Varela MD) History of abnormal cervical Pap smear (Acute) Well woman exam (Acute) Dental infection (Acute) Family planning initiation (Acute) Elevated plasma metanephrines (Acute) Enterocolitis (Acute) Nausea & vomiting (Acute) Cannabis abuse with other cannabis-induced disorder (Acute) Post-traumatic stress disorder (Acute) COVID-19 virus infection (Acute) Migraine (Acute) Annual physical exam (Acute) Bacterial vaginosis (Acute) Hyperkalemia (Acute) Pelvic pain (Acute) Vitamin D deficiency (Acute) Severe major depression (Acute) Insomnia (Acute) Generalized anxiety disorder (Acute) Abnormal uterine bleeding (Acute) Latent tuberculosis by blood test (Acute) Past Medical History Medical History Abnormal uterine bleeding Constipation Depot contraception Hemoptysis Hospital discharge follow-up Iron deficiency anemia Muscle weakness Nicotine dependence test positive Screen for STD (sexually transmitted disease) Status post drug-induced Status post therapeutic Tobacco abuse Family History Family History Maternal Aunt Colon cancer Other Mental health disorder Family history of problems with anesthesia: No Surgical History Surgical History Hx of section Social History Social History Housing: Apartment Alcohol intake: never Patient Tobacco Use Status: Current someday Tobacco user Cigarettes Per Day: 5 Years Smoked: stopped 04/2022 smokes marijuana e-Cigarette/Vaping Use: Never Used Substance Use Type: Marijuana Advance Directives: No Advance Directives Information Provided: Yes service: No Current occupational status: employed Gender identity: Female Cognitive needs: No Hearing needs: No Vision needs: No Meds Allergies Allergy/AdvReac Type Severity Reaction Status Date / Time codeine [CODEINE] Allergy Unknown NAUSEA & Verified 03/06/23 15:40 VOMITING Active Medications: Current Medications Lactated Ringer's (Lr) 1,000 mls @ 100 mls/hr IVCONT .Q10H [facility] Home Medications Medication Instructions Recorded Confirmed Last Taken Type gabapentin 100 mg capsule 100 mg PO BID 03/06/23 Unknown History Exam Exam Date and Time: March 13, 2023 1302 Height,Weight and Vital Signs: Height 5 ft 6 in Weight 78.471 kg Pertinent Lab Results Pertinent Lab Results: Laboratory Tests 03/13/23 12:45 Urine Test NEGATIVE Airway Mallampati Class: II TM Dist: >3cm Neck ROM: Full Heart: RRR Lungs: CTA Assessment and Plan Assessment Anesthesia Assessment: Anesthesia Plan Discussed Final Anesthetic Review Family History of Problems with Anesthesia: No NPO: Yes ASA Class: II Final Preanesthetic Review: Meds/Allgs Chart Reviewed, Consent Obtained/Reviewed and Anes Risks/Benef Reviewed Patient Risk: Low Procedure Risk: Low Anesthetic Plan Anesthetic Plan: MAC: Disposition: Standard PACU
[2023-03-13 13:08] VITALS: BMI 27.9
[2023-03-13 13:13] VITALS: BP 136/86; PULSE 78; RESP 16; TEMP 36.8; O2SAT 98
[2023-03-13] MEDS: Lactated Ringers 1,000 ML 100 ML IVCONT (13:15)
--- NOTE | 2023-03-13 13:17 | P.HPSUR_ITS ---
Pre-Procedural Eval Section A Date of Service: 03/13/23 Section B Chief Complaint: Nausea with vomiting,Noninfective gastroenteritis Relevant Family History (Specify if Yes): No Relevant Social History: Tobacco Use (THC as well) Present Medications: see Short Stay Collaborative assessment Medical History: Significant History (Abnormal uterine bleeding Constipation Depot contraception Hemoptysis Hospital discharge follow-up Iron deficiency anemia Muscle weakness Nicotine dependence test positive Screen for STD (sexually transmitted disease) Status post drug-induced Status post therapeutic Tobac) History of Previous Operations: Relevant previous surgery/procedure and date(s) (c section) Allergies: Allergies Allergy/AdvReac Type Severity Reaction Status Date / Time codeine [CODEINE] Allergy Unknown NAUSEA & Verified 03/06/23 15:40 VOMITING Review of Systems Sugical H&P ROS: Negative: Constitution, Cardiovascular, Respiratory, Neurological, Psychiatric, Hem-Onc, Allergic/Immunologic, Gastrointestinal, Genitourinary, Musculoskeletal, Integumentary, Endocrine and Eyes/Ears/Nose/Throat Exam Surgical H&P Exam: Normal: HEENT, Normal: Heart, Normal: Lungs, Normal: Extre mities, Normal: Abdomen, Normal: Skin and Normal: Neurological Plan Diagnosis/Plan: Unchanged I have reviewed the history and physical and performed a pertinent physical examination on my patient. No changes have occurred unless specified. Time Spent With Patient Time: Total time managing care of this patient today ____ minutes.
--- NOTE | 2023-03-13 13:30 | W.PM.OPN ---
Operative Note Operative Note Date of Service: 03/13/23 Narrative: Procedure Description: EGD Indication: nausea, epigastric pain Anesthesia: MAC FLEXIBLE TRANSORAL UPPER GASTROINTESTINAL ENDOSCOPY UPPER ENDOSCOPY Consent: Indications for the procedure and potential complications of bleeding, perforation, reaction to medications and missed diagnosis were discussed with the patient and informed consent was obtained. Instrument: Olympus GIF H 190 J mid size upper endoscope Monitoring: Vital signs and clinical assessment, continuous EKG monitoring, Pulse oximetry, Carbon Dioxide monitoring and blood pressure monitoring were done throughout the procedure. Procedure: The patient was placed in the left lateral decubitis position and pre-procedure medications were administered and a bite block was placed. The endoscope was inserted into the mouth and advanced under direct vision to the third part of duodenum. A careful inspection was made as the upper endoscope was withdrawn including a retroflexed examination of the proximal stomach; Findings and interventions are described below. Findings: Larynx:normal Esophagus: GE junction at 35 cm, diaphragm hiatus at 35 cm, boggy, congested mucosa at GEJ consistent with reflux esophagitis, bx taken from GEJ, and dital,proximal esophagus Stomach: Patchy gastric erythema with few streaky erosions at the antrum, flecks of blodd noted as well. Biopsies were obtained. Grade 2 flap valve on retroflexed examination of the cardia. Duodenum: Erosive duodenitis in the bulb, bx taken as well as from second and third part duodenum in different jars Intervention: Biopsies as noted above Impression/Findings: erosive duodenitis gastritis esophagitis PLAN: change to PPI avoid nsaids, try to stop smoking if h pylori pos then treat
[2023-03-13 14:00] VITALS: BP 130/78; PULSE 105; RESP 16; TEMP 36.4; O2SAT 98
--- NOTE | 2023-03-13 14:13 | HO.POSTANES ---
Post Anesthesia Evaluation Post Anesthesia Evaluation Vital Signs: Vital Signs Temp Pulse Resp BP Pulse Ox O2 Del Method 03/13/23 14:00 97.6 F 105 H 16 130/78 98 Room Air 03/13/23 13:13 98.2 F 78 16 136/86 98 Room Air Anesthesia: Monitored Pain Control: Satisfactory Nausea/Vomiting: None (z) and Severe Hydration: Adequate Anesthesia-Related Issues: No Anes. Related Issues
[2023-03-13 14:15] VITALS: BP 143/93; PULSE 90; RESP 16; TEMP 36.3; O2SAT 98
--- NOTE | 2023-03-13 15:03 | HO.POSTANES ---
Post Anesthesia Evaluation Post Anesthesia Evaluation Vital Signs: Vital Signs Temp Pulse Resp BP Pulse Ox O2 Del Method 03/13/23 14:15 97.3 F 90 16 143/93 H 98 Room Air 03/13/23 14:00 97.6 F 105 H 16 130/78 98 Room Air 03/13/23 13:13 98.2 F 78 16 136/86 98 Room Air Anesthesia: Monitored Mental Status: Awake Pain Control: Satisfactory Nausea/Vomiting: None Hydration: Adequate Anesthesia-Related Issues: No Anes. Related Issues
== END 2023-03-13 14:43 | disposition home or self-care (01) ==
PROVIDERS: Nurse Practitioner; PCP Internal Medicine; Visit Provider Internal Medicine Gastroenterology
PROC: 0DJ08ZZ Inspection of Upper Intestinal Tract, Via Natural or Artificial Opening Endoscopic (ICD-10-PCS; CPT 43235; principal; 2023-03-13 13:40)
DX: K29.80 Duodenitis without bleeding (principal); K29.50 Unspecified chronic gastritis without bleeding; K21.9 Gastro-esophageal reflux disease without esophagitis; K20.80 Other esophagitis without bleeding; K44.9 Diaphragmatic hernia without obstruction or gangrene; Z79.899 Other long term (current) drug therapy; Z88.8 Allergy status to other drugs, medicaments and biological substances; F12.90 Cannabis use, unspecified, uncomplicated; K59.00 Constipation, unspecified; F17.210 Nicotine dependence, cigarettes, uncomplicated
CPT/HCPCS: 43239; 81025; 88305; 88342

== ENCOUNTER → 2023-04-01 11:54 | Outpatient (BNVA) | payer OTHER, SELFPAY | PROVIDERS: PCP Internal Medicine; Visit Provider Internal Medicine Gastroenterology ==

== ENCOUNTER 2023-04-01 18:24 | Outpatient (REF) | payer OTHER, SELFPAY ==
[2023-04-03 13:54] LABS: H Pylori Breath Test Negative (Negative)
== END 2023-04-01 18:25 | disposition home or self-care (01) ==
LOC: HO.LNP 18:24
PROVIDERS: Visit Provider Internal Medicine
DX: R11.2 Nausea with vomiting, unspecified (principal)
CPT/HCPCS: 83013

== ENCOUNTER → 2023-04-11 11:41 | Outpatient (BNVA) | payer OTHER, SELFPAY | PROVIDERS: PCP Internal Medicine; Visit Provider Internal Medicine Gastroenterology | DX: K29.60 Other gastritis without bleeding (principal) | CPT/HCPCS: 99212 ==

== ENCOUNTER 2023-05-26 10:34 | Emergency (ER) | payer OTHER, SELFPAY ==
--- NOTE | ~2023-05-26 | CT_ITS ---
CT brain and CT cervical spine without contrast. Clinical indications: Neck pain. Trauma to face. COMPARISON: CT brain 01/11/2017. TECHNIQUE: 5 mm thin axial and reformatted 2 mm thin sagittal and coronal images of brain were obtained without contrast. Axial 3 mm thin and reformatted 1.5 mm thin sagittal and coronal images of facial bones were obtained. Lastly axial 3 mm thin and reformatted 2 mm thin sagittal and coronal images of cervical spine were obtained. DLP [address] examination was performed using dose optimization technique as appropriate, variously including the following: Automated exposure control Adjustment of MA and/or KV according to patient size(this includes techniques or standardized protocols for targeted exams where dose is matched to indication/reason for exam; extremities or head. Use of iterative reconstruction techniques. FINDINGS: Brain: There is no acute intra-axial, extra-axial bleed, masses or midline shift. There is no acute infarction in evolution. There is no edema. Hsrestha to white matter differentiation is maintained normal. The lateral ventricles are symmetrical in size and configuration without distention. Bone windows reveal no calvarial abnormality. There is no scalp soft tissue abnormality. Bilateral paranasal sinuses and mastoid air cells are well-aerated. Cervical spine: There is mild straightening of cervical lordosis. The vertebral heights, alignment and disc heights are normal. The craniovertebral junction and the C1-C2 alignment is normal. No visible acute fracture, dislocation or subluxation seen. The prevertebral and paravertebral soft tissues are normal. The airways widely patent. The lung apices are clear. The thyroid lobes are symmetrical. Bilateral parotid and submandibular glands are symmetrical and normal. Facial bones: There is normal aeration of bilateral paranasal sinuses without mucoperiosteal thickening or air-fluid levels. The bony sinus estrada are intact. The lamina papyracea and the cribriform plate is normal. There is mild deviation of nasal septum to the left. The nasopharyngeal, pharyngeal and laryngeal airway appears patent. The trachea is patent as well. The lung apices are clear. Bilateral TM joints are symmetrical. There is no fracture involving the mandible, maxilla or the nasal bones. CT/CT cervical spine wo IV con IMPRESSION: 1. No acute intracranial process seen. 2. There is no acute fracture, dislocation or subluxation in cervical spine. 3. There is no maxillofacial, nasal or mandibular fracture.
[2023-05-26 11:22] VITALS: BP 146/100; PULSE 73; RESP 18; TEMP 36.7; O2SAT 98; BMI 27.9
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
[2023-05-26 12:34] LABS: MANUAL DIFF FLAG NO
[2023-05-26 12:42] LABS: Appearance Urine Clear; Color Urine Yellow; Glucose Urine UA Negative (Negative); Leukocyte Esterase Urine Negative (Negative); Nitrite Urine Negative (Negative); Specific Gravity - Urine 1.025 (1.005-1.025); Urine Blood Negative (Negative); Urine Ketones 15 mg/dL (Negative); Urine Protein Trace mg/dL (Neg-Trace)
[2023-05-26 12:50] LABS: Basophils Percent Auto 0.4 % (0-2); Eosinophils Percent Auto 0.6 % (0-4); Hematocrit 44.1 % (37.0-47.0); Hemoglobin 14.7 g/dl (12.0-16.0); Imm Gran Abs Auto 0.01 X10*3/uL (0.00-0.03); Imm Gran Pct Auto 0.1 % (0.0-0.4); Lymphocytes Absolute Auto 1.8 X10*3/uL (1.2-4.9); Lymphocytes Percent Auto 25.3 % (20-40); Mean Corpuscular HGB Conc 33.3 g/dl (31.0-35.0); Mean Corpuscular Hemoglobin 29.6 pg (27.0-33.0); Mean Corpuscular Volume 88.9 fL (80.0-98.0); Monocytes Absolute Auto 0.5 X10*3/uL (0.1-1.2); Monocytes Percent Auto 7.7 % (2-11); Neutrophils Absolute Auto 4.6 x10*3/uL (2.0-8.3); Neutrophils Percent Auto 65.9 % (45-73); Platelet Count 263 X10*3/uL (160-400); Red Blood Count 4.96 X10*6/uL (4.20-5.50); Red Cell Distribution Width 11.9 % (11.0-16.0)
[2023-05-26 13:04] LABS: Amphetamine Screen Urine Not Detected (Not Detect); Barbiturates, Urine Not Detected (Not Detect); Benzodiazepines Screen Urine Not Detected (Not Detect); Cannabinoid Screen Urine POSITIVE (Not Detect); Cocaine Screen Urine Not Detected (Not Detect); Fentanyl, urine Not Detected (Not Detect); Opiate Screen Urine Not Detected (Not Detect); Phencyclidine Screen Urine Not Detected (Not Detect)
[2023-05-26 13:09] LABS: Alanine Aminotransferase 9 U/L (0-31); Albumin Level 4.7 g/dL (3.5-5.0); Alkaline Phosphatase 64 U/L (39-117); Anion Gap 12 (12-20); Aspartate Amino Transferase 14 U/L (5-31); Bilirubin Total 0.8 mg/dL (0.0-1.0); Blood Urea Nitrogen 12 mg/dL (9-16); Calcium 10.1 mg/dL (8.4-10.2); Carbon Dioxide 25 mmol/L (22-29); Chloride 106 mmol/L (96-108); Creatinine Clr Calc Pharmacy 100.1; Estimated Glomerular Filt Rate > 60; Glucose Random 94 mg/dL (60-115); Magnesium 2.3 mg/dL (1.6-2.6); Potassium 3.9 mmol/L (3.3-5.1); Sodium 139 mmol/L (135-145); Total Protein 7.9 g/dL (6.5-8.0)
--- NOTE | 2023-05-26 13:24 | PC.NURSE ---
PT RESTING QUIETLY CT SCANS COMPLETED AWAITING RESULTS. CALM/COOPERATIVE. NO COMPLAINTS OFFERED
--- NOTE | 2023-05-26 13:37 | PC.NURSE ---
CARE TEAM CURRENTLY MEETING WITH PATIENT. PT TEARFUL
[2023-05-26 14:14] VITALS: BP 137/85; PULSE 60; RESP 18; O2SAT 99
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
== END 2023-05-26 16:17 | disposition home or self-care (01) ==
PROVIDERS: Physician Assistant; Emergency Provider Emergency Medicine; PCP Internal Medicine
DX: F43.10 Post-traumatic stress disorder, unspecified (principal); S00.83XA Contusion of other part of head, initial encounter; X83.8XXA Intentional self-harm by other specified means, initial encounter; F41.9 Anxiety disorder, unspecified; F17.210 Nicotine dependence, cigarettes, uncomplicated; F12.90 Cannabis use, unspecified, uncomplicated; Z91.52 Personal history of nonsuicidal self-harm; Z72.89 Other problems related to lifestyle; Z59.811 Housing instability, housed, with risk of homelessness; Z59.86 Financial insecurity; Z79.899 Other long term (current) drug therapy; Y93.9 Activity, unspecified; Y92.9 Unspecified place or not applicable; Y99.9 Unspecified external cause status
CPT/HCPCS: 36415; 70450; 70486; 72125; 80053; 80307; 81003; 83735; 85025; 99284; S9485

== ENCOUNTER → 2023-05-26 11:45 | Outpatient (BNV) | payer OTHER, SELFPAY | PROVIDERS: Emergency Provider Emergency Medicine; PCP Internal Medicine; Visit Provider Social Worker | DX: F43.11 Post-traumatic stress disorder, acute (principal) | CPT/HCPCS: 99284 ==

== ENCOUNTER 2023-05-27 15:59 | Outpatient (AMB) | payer OTHER, SELFPAY ==
--- NOTE | 2023-05-27 16:09 | A.OFFPC_ITS ---
Vital Signs 05/27/23 16:10 Height 5 ft 6 in Weight 166 lb BMI 26.8 BP 118/72 Blood Pressure Location Lt brachial Position Sitting Pulse 80 Pulse Source Pulse Oximeter Pulse Oximetry (%) 98 Oxygen Delivery Method Room Air Intake Visit Reasons: Welt on face Allergies codeine [CODEINE] Allergy (Unknown, Verified 05/27/23 16:10) NAUSEA & VOMITING Medication List - Last Reconciled 05/27/23 by Tammy Lewis MD clonidine HCl 0.3 mg (3 x 0.1 mg) PO BEDTIME gabapentin 300 mg PO BID medroxyprogesterone (Depo-Provera) 150 mg IM [id number] naproxen 500 mg PO BID PRN pantoprazole 40 mg PO DAILY prochlorperazine maleate 10 mg PO BID PRN sumatriptan succinate (Imitrex) 50 mg PO .QD PRN Tobacco use date assessed: 01/14/23 Dental Screening Dental Screen Date: 05/27/23 Did you have a dental visit in the last 12 months?: Yes Did you have a dental problem in the last 6 months where you did not have access to dental care?: No Was dental information given to patient?: Patient has dentist HPI Welt on face HPI Details 33-year-old overweight female last seen in January 2023 having history of migraine PTSD cannabis abuse/user coming in for follow-up. Recently has had self-harm but denied any suicidal ideation patient states hitting self/face patient has been on gabapentin in clonidine which were temporarily stopped. Patient was in the emergency room last night. Patient follows up with Gastr oenterology also was last seen in April 2023 following EGD noted to have erosive gastritis placed on pantoprazole. Patient is very anxious . And has related to me problems with partner in addition to the problem of her moving out of her apartment. Patient states has started to hurt herself by hitting her self on the face [facility] Medical History (Updated 05/27/23 @ 16:59 by Tammy Lewis MD) Abnormal uterine bleeding Constipation Depot contraception Hemoptysis Hospital discharge follow-up Iron deficiency anemia Muscle weakness Nicotine dependence test positive Screen for STD (sexually transmitted disease) Status post drug-induced Status post therapeutic Tobacco abuse Surgical History (Updated 04/11/23 @ 11:46 by MADDI Babin) History of esophagogastroduodenoscopy (EGD) Hx of section Family History Maternal Aunt Colon cancer Other Mental health disorder Social History Housing: Apartment Alcohol intake: never Patient Tobacco Use Status: Current everyday Tobacco user Tobacco use type: Cigarette Cigarettes Per Day: 7 Years Smoked: stopped 04/2022 smokes marijuana Packs per year/per ci.00 e-Cigarette/Vaping Use: Never Used Substance Use Type: Marijuana service: No Current occupational status: employed Gender identity: Female Cognitive needs: No Hearing needs: No Vision needs: No Female Reproductive History Menstrual Age of Menarche: 13 Questionnaire PHQ-9 Over the last 2 weeks, how often have you been bothered by any of the following problems? 1. Little interest or pleasure in doing things: several days 2. Feeling down, depressed, or hopeless: several days 3. Trouble falling or staying asleep, or sleeping too much: several days 4. Feeling tired or having little energy: several days 5. Poor appetite or overeating: several days 6. Feeling bad about yourself - or that you are a failure or have let yourself or your family down: several days 7. Trouble concentrating on things, such as reading the newspaper or watching television: several days 8. Moving or speaking so slowly that other people could have noticed. Or the opposite - being so fidgety or restless that you have been moving around a lot more than usual: several days 9. Thoughts that you would be better off or of hurting yourself in some way: several days Total score: 9 Depression Screening Interpretation: Positive Source: Developed by Drs. Barak Beltran, Dee Mtz, Ben Saldivar and colleagues, with an educational michael from [employer]. Thrive Questionnaire Date Thrive assessed: 01/14/23 AUDIT C Alcohol Use Questionnaire (AUDIT-C) 1. How often do you have a drink containing alcohol?: Never 2. How many drinks containing alcohol do you have on a typical day when you are drinking?: 1 or 2 3. How often do you have six or more drinks on one occasion?: Never Total Score: 0 LALY-7 AMB Questionnaire LALY-7 Date LALY - 7 assessed: 01/14/23 Source: Developed by Drs. Barak Beltran, Dee Mtz, Ben Saldivar and colleagues, with an educational michael from [employer]. Physical exam (Primary Care) Vital Signs: Last Vital Signs Pulse 80 05/27/23 16:10 BP 118/72 05/27/23 16:10 Pulse Ox 98 05/27/23 16:10 Oxygen Delivery Method Room Air 05/27/23 16:10 Care Plan Goal for BP management: Hematoma noted on the right cheek 4 x 3 in BMI result Body Mass Index 26.8 Tobacco/Smoking Status: Tobacco use Status Tobacco use date assessed 01/14/23 05/27/23 16:28 Patient Tobacco Use Status Current everyday Tobacco 05/27/23 16:28 Tobacco use type Cigarette 05/27/23 16:28 e-Cigarette/Vaping Use Never Used 05/27/23 16:28 PHQ-9: PHQ-9 Score PHQ-9: Total score 9 05/27/23 16:28 Depression Screening Interpretation: Positive Thrive Assessment: Date of Thrive Assessment Date Thrive assessed 01/14/23 05/27/23 16:28 Const General: alert; No acute distress [facility] Head images: 1. Hematoma on the right side of the face Eyes Conjunctivae: conjunctivae normal Resp Auscultation: clear to auscultation bilaterally Cardio Rate: regular rate Rhythm: regular rhythm GI Inspection: Yes normal to inspection Extrem General: Yes normal to inspection and No edema Assessment and Plan Assessment & Plan (1) Erosive gastritis: Code(s): K29.60 - Other gastritis without bleeding Plan: Avoid the foods that causes that usually spicy foods, tomato products, juices, coffee, soda and foods that your sensitive to. After eating do not lie down, allow 3-4 hours before in lie down. And keep the head of bed above 30 degrees to avoid the acid from going up. (2) Post-traumatic stress disorder: Comment: [facility] Code(s): F43.10 - Post-traumatic stress disorder, unspecified Plan: Continue follow-up with counseling and therapy (3) Generalized anxiety disorder: Code(s): F41.1 - Generalized anxiety disorder Plan: Continue to follow-up with psychiatry and counseling and therapy discussion different modalities to get the anxiety under control (4) Facial hematoma: Code(s): S00.83XA - Contusion of other part of head, initial encounter Plan: take naproxen with food all the time . Advised to place cold compress. Medications: New naproxen 500 mg PO BID PRN 30 tabs 0RF pain S00.83XA - Contusion of other part of head, initial encounter Coding Level of Care Code Est Pt Level 4 (36292) Diagnoses Erosive gastritis K29.60 Post-traumatic stress disorder F43.10 Generalized anxiety disorder F41.1 Facial hematoma S00.83XA Additional Codes PHQ-9 - 90587 - PHQ-9 Billing: Y ([id number])
[2023-05-27 16:10] VITALS: BP 118/72; PULSE 80; O2SAT 98; BMI 26.8
== END 2023-05-27 17:25 | disposition home or self-care (01) ==
PROVIDERS: PCP Internal Medicine; Visit Provider Internal Medicine
DX: K29.60 Other gastritis without bleeding (principal); F43.10 Post-traumatic stress disorder, unspecified; F41.1 Generalized anxiety disorder; S00.83XA Contusion of other part of head, initial encounter
CPT/HCPCS: 99214

== ENCOUNTER 2023-05-28 11:01 | Outpatient (AMB) | payer OTHER, SELFPAY ==
--- NOTE | 2023-05-27 09:53 | AM.OFFVISNUR ---
Intake Vital Signs 05/28/23 11:13 Height 5 ft 6 in Weight 76.26 kg BMI 27.1 Intake Visit Reasons: Depo Allergies codeine [CODEINE] Allergy (Unknown, Verified 05/27/23 16:10) NAUSEA & VOMITING Nursing Note Марина is here for her scheduled Depo-Provera inj. She has no complaints today. Follow up in 12 weeks for next injection. Office Procedures Depo Questionnaire If YES to any of the following questions, please consult a provider. Date of last injection: 03/07/23 Date of last gynecology exam: 03/06/23 Menstrual pattern since last injection has been: Not Applicable Irregular bleeding?: No Breast lumps or other breast changes?: No Changes in weight or appetite?: No Depression or changes in mood?: No Abnormal hair growth or loss?: No Skin problems (rash, acne, discoloration)?: No Pain at the injection site?: No Headaches?: No Nervousness?: No Abdominal pain or cramping?: No Dizziness or nausea?: No Fatigue or weakness?: No Decrease in sexual drive?: No Chest pain or shortness of breath?: No Swelling in arms or legs?: No Form completed by?: Aftab Benavides LPN Office Meds Depo-Provera Performing Provider: Milad Varela MD Administered by: Emilee Benavides LPN on 05/28/23 11:14 Dose Route Admin Location Lot Number Expiration Date NDC Expander 150 mg IM rt. gluteus [id number] 08/09/25 [id number] [facility] Coding Level of Care Code Established Pt Est Pt Level 1 (73308) Patient Type Established History Problem Focused Exam Problem Focused Medical Decision Making Straight Forward Diagnoses Time Spent (min) 15 Assessment & Plan Assessment & Plan Orders: Orders AMB Medroxyprogesterone Injection Patient Supplied Today Z30.42 - Encounter for surveillance of injectable contraceptive
[2023-05-28 11:13] VITALS: BMI 27.1
== END 2023-05-28 13:31 | disposition home or self-care (01) ==
LOC: HO.HWS 11:01
PROVIDERS: PCP Internal Medicine; Visit Provider Obstetrics & Gynecology
DX: Z30.42 Encounter for surveillance of injectable contraceptive (principal)
CPT/HCPCS: J1050

== ENCOUNTER → 2023-05-28 11:01 | Outpatient (BNVA) | payer OTHER, SELFPAY | PROVIDERS: PCP Internal Medicine; Visit Provider Obstetrics & Gynecology | DX: Z30.42 Encounter for surveillance of injectable contraceptive (principal) | CPT/HCPCS: 96372; 99211 ==

== ENCOUNTER 2023-06-26 10:00 | Outpatient (RCR) | payer OTHER, SELFPAY ==
--- NOTE | 2023-05-08 10:38 | MHC.PT.EP ---
[facility] [place] Office [place] Office [place] Office [address] Ayana Gamez [address] [phone] F: [phone] F: [phone] F: [phone] F: [phone] Physical Therapy Plan of Care Date of Evaluation: Date of Surgery: NA Diagnosis: Separation of muscles (non traumatic), other site Assessment: Марина is a 33 year old female who is referred to PT for separation of muscles (non traumatic), other side . Марина reports of noticing abdominal bulging and squishy sensation after the of her daughter about 3.5 years back. She has been trying various exercises but the squishy feeling did not change. She also reports of having back pain with prolonged standing and walking. On PT examination she presents with 4/10 pain in back with standing and walking, good lumbar ROM, decreased B LE strength, decreased core strength and DR. She lives with her daughter and is independent with all ADLS. She exercises in the gym 5/week and notices some increase in abdominal bulge. She would benefit from skilled PT to address the aforementioned impairments and improve tolerance to functional activities. Frequency and Duration: The patient will be seen 2/week for 5 weeks Short Term Goals: In 2 weeks- 1. Pt will initiate and be independent with HEP demonstrated by 100% return of HEP 2. Pt will be able to demonstrate and maintain good body mechanics while exercising in the gym with weights Snf Goals: In 5 weeks- 1. Pt will demonstrate increase in muscle strength by 1 grade which will enable her to tolerate standing and walking without pain 2. Pt will be independent with HEP for symptom management and maintenance following d/c. Treatment Plan: Modalities to reduce pain, spasms and effusion. Manual therapy to restore motion and function. Therapeutic exercise to improve strength and flexibility. Neuromuscular re-education for posture and balance. Therapeutic activities to return to functional activities of daily living. Electronically signed by: Alexandra Lloyd PT DPT Please sign and return to therapist. Thank you for your referral.
--- NOTE | 2023-08-08 15:36 | MHC.PT.DC ---
[facility] [place] Office [place] Office [place] Office [address] Ayana Gamez [address] [phone] F: [phone] F: [phone] F: [phone] F: [phone] Physical Therapy Discharge Report Diagnosis: Separation of muscles (non traumatic), other site Date of Surgery: NA Date of Evaluation: 05/08/23 Date of Discharge: 08/08/23 Treatments to Date: 7 Cancellations to Date: 3 No Shows to Date: 0 Discharge Status: Achieved Goals Improved Function Independent with HEP Discharge Summary: Марина completed 7 PT visits. She made significant improvements with PT and is independent with all HEP. She is therefore being d/c from PT. Electronically signed by: Alexandra Lloyd, PT DPT Please sign and return to therapist. Thank you for your referral.
== END 2023-08-08 15:37 | disposition home or self-care (01) ==
LOC: HO.PT 10:00
PROVIDERS: PCP Internal Medicine; Visit Provider Internal Medicine
DX: M62.08 Separation of muscle (nontraumatic), other site (principal)
CPT/HCPCS: 97110; 97112; 97140; 97161; 97530

== ENCOUNTER 2023-08-27 09:21 | Outpatient (AMB) | payer OTHER, SELFPAY ==
--- NOTE | 2023-08-27 09:29 | A.OFFVIS_ITS ---
Intake Vital Signs 08/27/23 09:30 Height 5 ft 6 in Weight 171 lb BMI 27.6 BP 104/66 Intake Visit Reasons: STD Testing Intake Note: would like Herpes testing. Hand Surgeon Required: No Information Interpreted: non-clinical & clinical Life Sciences Manager: Life Sciences Manager Present (Feliz) Accompanied by: Child Allergies codeine [CODEINE] Allergy (Unknown, Verified 08/27/23 09:33) NAUSEA & VOMITING Is last menstrual period known: No Post menopausal: No HPI HPI Comments History of Present Illness Details She is here today for STD testing. Reports her ex-partner history of unfaithfulness/multiple partners; UPI within the last 7-10days w/him. She felt pressured and said no to anal sex, but despite this he persisted. She is very upset about this. Reports partner has outbreaks on his penis that are white and filled with puss. She denies any HSV symptoms. Complains of frequent urination without burning sensation. Reports spotting with brown discharge and severe cramping with menses. She is interested in following up for her Depooseas. Reports she is under stress due to living situation (homelessness, loss of recent employment) and her mom health issues. She has a therapist but has not been in a months. Has a psychiatrist, and reports requesting testing/diagnoises for hearing voices and other symptoms. She denies any contraindications to control such as: migraines with aura, history of DVT or pulmonary emboli, high blood pressure, liver disease, thrombolic disorders, Lupus, +ROBLES. [facility] Medical History Frequency of urination Tobacco abuse Screen for STD (sexually transmitted disease) Abnormal uterine bleeding Depot contraception Status post therapeutic Status post drug-induced Nicotine dependence Constipation Iron deficiency anemia Muscle weakness Hospital discharge follow-up test positive Hemoptysis Surgical History History of esophagogastroduodenoscopy (EGD) Hx of section Family History Maternal Aunt Colon cancer Other Mental health disorder Social History Housing: Apartment Alcohol intake: never Patient Tobacco Use Status: Current everyday Tobacco user Tobacco use type: Cigarette Cigarettes Per Day: 4 Years Smoked: stopped 04/2022 smokes marijuana e-Cigarette/Vaping Use: Never Used Substance Use Type: Marijuana service: No Current occupational status: employed Gender identity: Female Cognitive needs: No Hearing needs: No Vision needs: No Female Reproductive History Menstrual Age of Menarche: 13 Duration of menses: 6-7 days control method: progesterone injection Total pregnancies: 3 Full term: 1 Number of Living Children: 1 Ab induced: 1 Ectopics: 1 Date of last pap smear: 03/07/23 (negative) Physical Exam Vital Signs: Last Vital Signs BP 104/66 08/27/23 09:30 BMI result Body Mass Index 27.6 Const General: cooperative, healthy appearing, comfortable, no acute distress, well developed, alert and awake Other: General: Yes bladder normal to palpation External Female Exam: normal external appearance and normal appearance of the urethra Speculum Exam - Vagina: normal appearance of the vagina, normal palpation and abnormal vaginal discharge white (watery) Speculum Exam - Cervix: normal appearance of the cervix and normal palpation Bimanual exam- vagina & uterus: normal bimanual exam, normal palpation, bladder normal to palpation and normal palpation Bimanual Exam- Adnexa, other: normal adnexae and no masses Results AMB Test Urine AMB Test Urine Negative Last Edit by MADDI Allen on 08/27/23 10:36 AMB Urinalysis, Automated UA Leukoctes 0 Mita/uL Last Edit by MADDI Allen on 08/27/23 10:36 UA Nitrite Negative Last Edit by MADDI Allen on 08/27/23 10:36 UA Urobilinogen 0 mg/dL Last Edit by MADDI Allen on 08/27/23 10:36 UA Protein 0 mg/dL Last Edit by MADDI Allen on 08/27/23 10:36 UA pH 6 Last Edit by MADDI Allen on 08/27/23 10:36 UA Blood 0.5 Luke/uL Last Edit by MADDI Allen on 08/27/23 10:36 UA Specific Ashley 1.015 Last Edit by MADDI Allen on 08/27/23 10: 36 UA Ketone Negative Last Edit by MADDI Allen on 08/27/23 10:36 UA Bilirubin 0 mg/dL Last Edit by MADDI Allen on 08/27/23 10:36 UA Glucose 0 mg/dL Last Edit by MADDI Allen on 08/27/23 10:36 Results Reviewed Results Reviewed: Laboratory Last Values Urine pH (Auto) 6 08/27/23 10:33 Specific Ashley (Auto) 1.015 08/27/23 10:33 Urine Protein (Auto) 0 mg/dL 08/27/23 10:33 Glucose (UA)(Auto) 0 mg/dL 08/27/23 10:33 Urine Ketones (Auto) Negative 08/27/23 10:33 Urine Blood (Auto) 0.5 Luke/uL 08/27/23 10:33 Urine Nitrite (Auto) Negative 08/27/23 10:33 Urine Bilirubin (Auto) 0 mg/dL 08/27/23 10:33 Urine Urobilinogen (Auto) 0 mg/dL 08/27/23 10:33 Leukocyte Esterase (Auto) 0 Mita/uL 08/27/23 10:33 Tst Clinic Negative 08/27/23 10:33 Assessment & Plan Assessment & Plan (1) Potential exposure to STD: Code(s): Z20.2 - Contact with and (suspected) exposure to infections with a predominantly sexual mode of transmission Plan: Discussed: BV testing and GC/CT panel today. STD blood work ordered. Await results and treat accordingly. Encouraged to use condoms for STD and prevention. Empowerment to say no and to avoid contact with ex. Seek out therapy to discuss feeling over the incident, and follow up with psychiatry to express MH concerns again. Crisis number, and ED services if in immediate crisis reviewed. RTO for Depo restart in 2 wks, no UPI and negative . 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 Additional BUM required for 7 days after injection. All of her questions and concerns were addressed to the best of my ability and shared decision making. She is agreeable to plan of care. (2) Stress: Code(s): F43.9 - Reaction to severe stress, unspecified Plan: Advised to consult with therapist. (3) Frequency of urination: Code(s): R35.0 - Frequency of micturition Plan: Lab work obtained. (4) control counseling: Code(s): Z30.09 - Encounter for other general counseling and advice on contraception Plan: She opts for Depo Provera. Reviewed use, side effects and warnings. Instructed to monitor periods and contact the office with any concerns. Instructed patient no UPI for 2 weeks prior to first injection. Take urine HCG at time of first injection. Encouraged condoms always to prevent STD's. Rx for Depo sent to pharmacy. 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 Return for RN for initial Depo injection and every 12 weeks thereafter. She was instructed to go to ER if she develops loss of vision, severe headache that does not resolve, chest pain, difficulty breathing, abdominal pain, or pain or tenderness in extremity or new breast lumps. Call the office with any concerns. Orders: Orders AMB HCG Urine Test Today Z32.02 - Encounter for test, result negative AMB Urinalysis Automated Today R35.0 - Frequency of micturition Hepatitis C Antibody Today Z20.2 - Contact with and (suspected) exposure to infections with a predominantly sexual mode of transmission Hepatitis B Core Antibody Today Z20.2 - Contact with and (suspected) exposure to infections with a predominantly sexual mode of transmission Syphilis Screen Today Z20.2 - Contact with and (suspected) exposure to infec tions with a predominantly sexual mode of transmission HIV Ab/Ag Today Z20.2 - Contact with and (suspected) exposure to infections with a predominantly sexual mode of transmission Bacterial Vaginosis Panel Today Z20.2 - Contact with and (suspected) exposure to infections with a predominantly sexual mode of transmission CT NG by PCR Today Z20.2 - Contact with and (suspected) exposure to infections with a predominantly sexual mode of transmission Urine Culture Today R35.0 - Frequency of micturition Medications: Refilled medroxyprogesterone (Depo-Provera) 150 mg IM [id number] 1 mL 2RF Coding Level of Care Code Est Pt Level 3 (54277) Diagnoses Potential exposure to STD Z20.2 Stress F43.9 Frequency of urination R35.0 control counseling Z30.09
[2023-08-27 09:30] VITALS: BP 104/66; BMI 27.6
== END 2023-08-27 10:22 | disposition home or self-care (01) ==
PROVIDERS: PCP Internal Medicine; Visit Provider Advanced Practice Midwife
DX: Z20.2 Contact with and (suspected) exposure to infections with a predominantly sexual mode of transmission (principal); F43.9 Reaction to severe stress, unspecified; R35.0 Frequency of micturition; Z30.09 Encounter for other general counseling and advice on contraception; Z32.02 Encounter for pregnancy test, result negative
CPT/HCPCS: 99213

== ENCOUNTER 2023-08-27 09:21 | Outpatient (REF) | payer OTHER, SELFPAY ==
[2023-08-27 11:51] LABS: Syphilis Screen Nonreactive (Nonreactive)
[2023-08-27 11:53] LABS: HBc Num1 0.09 S/CO (0.00-0.79); HIV AB/AG Nonreactive (Nonreactive); HIV Num 1 0.08 S/CO (0.00-0.99); Hepatitis B Core Antibody Nonreactive (Nonreactive); ~HepC Num1 0.05 S/CO (0.00-0.79); ~Hepatitis C Antibody Nonreactive (Nonreactive)
[2023-08-27 14:34] LABS: CT PCR NOT DETECTED (Not Detect.); NG PCR NOT DETECTED (Not Detect.)
[2023-08-28 13:48] LABS: BV Int Neg Control Negative (Negative); BV Int Pos Control Positive (Positive)
== END 2023-08-27 09:22 | disposition home or self-care (01) ==
LOC: HO.LAB 09:21
PROVIDERS: PCP Internal Medicine; Visit Provider Advanced Practice Midwife
DX: R35.0 Frequency of micturition (principal); F43.9 Reaction to severe stress, unspecified; Z32.02 Encounter for pregnancy test, result negative; Z20.2 Contact with and (suspected) exposure to infections with a predominantly sexual mode of transmission
CPT/HCPCS: 0353U; 36415; 81003; 81025; 86704; 86780; 86803; 87086; 87389; 87480; 87510; 87660; 99212

== ENCOUNTER 2023-08-27 10:33 | Outpatient (REF) | payer OTHER, SELFPAY | END 2023-08-27 10:34 | disposition home or self-care (01) | LOC: HO.LNP 10:33 | PROVIDERS: Visit Provider Advanced Practice Midwife | DX: Z13.89 Encounter for screening for other disorder (principal) ==

== ENCOUNTER 2023-11-20 12:50 | Outpatient (AMB) | payer OTHER, SELFPAY ==
[2023-11-20 12:51] VITALS: BP 118/90; PULSE 86; O2SAT 99; BMI 27.0
--- NOTE | 2023-11-20 12:51 | A.OFFPC_ITS ---
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 Allergies codeine [CODEINE] Allergy (Unknown, Verified 11/20/23 12:58) NAUSEA & VOMITING Medication List - Last Reconciled 11/20/23 by Tammy Lewis MD celecoxib 100 mg PO BID ondansetron 4 mg PO Q8H PRN pantoprazole 40 mg PO DAILY sucralfate 10 mL PO BID Tobacco use date assessed: 11/20/23 Dental Screening Dental Screen Date: 11/20/23 Did you have a dental visit in the last 12 months?: Yes Did you have a dental problem in the last 6 months where you did not have access to dental care?: No Was dental information given to patient?: Patient has dentist HPI PE HPI Details 33-year-old overweight female with a his tory of erosive gastritis posttraumatic stress disorder and generalized anxiety disorder last seen in May 2023. Patient is here for physical exam. dizzy spells 2 x a week PFSH Medical History (Updated 11/20/23 @ 13:15 by Tammy Lewis MD) Dysuria Frequency of urination Diastasis recti Well woman exam Dental infection Family planning initiation Elevated plasma metanephrines Enterocolitis Nausea & vomiting Cannabis abuse with other cannabis-induced disorder Annual physical exam Hyperkalemia Pelvic pain Severe major depression Tobacco abuse Screen for STD (sexually transmitted disease) Abnormal uterine bleeding Depot contraception Status post therapeutic Status post drug-induced Nicotine dependence Constipation Iron deficiency anemia Muscle weakness Hospital discharge follow-up test positive Hemoptysis Surgical History History of esophagogastroduodenoscopy (EGD) Hx of section Family History (Updated 11/20/23 @ 13:24 by Tammy Lewis MD) Maternal Aunt Colon cancer Maternal Grandfather Heart attack Other Mental health disorder Social History (Updated 11/20/23 @ 13:25 by Tammy Lewis MD) Housing: Apartment Alcohol intake: never Patient Tobacco Use Status: Current everyday Tobacco user Tobacco use type: Cigarette Cigarettes Per Day: 4 Years Smoked: stopped 04/2022 smokes marijuana, 4 cigarettes a week (11/2023) e-Cigarette/Vaping Use: Never Used Substance Use Type: Marijuana service: No Current occupational status: employed Gender identity: Female Cognitive needs: No Hearing needs: No Vision needs: No Female Reproductive History Menstrual Age of Menarche: 13 Questionnaire PHQ-9 Over the last 2 weeks, how often have you been bothered by any of the following problems? 1. Little interest or pleasure in doing things: not at all 2. Feeling down, depressed, or hopeless: not at all 3. Trouble falling or staying asleep, or sleeping too much: not at all 4. Feeling tired or having little energy: not at all 5. Poor appetite or overeating: not at all 6. Feeling bad about yourself - or that you are a failure or have let yourself or your family down: not at all 7. Trouble concentrating on things, such as reading the newspaper or watching television: not at all 8. Moving or speaking so slowly that other people could have noticed. Or the opposite - being so fidgety or restless that you have been moving around a lot more than usual: not at all 9. Thoughts that you would be better off or of hurting yourself in some way: not at all Total score: 0 Depression Screening Interpretation: Negative Depression Screening Done: Yes Source: Developed by Drs. Barak Beltran, Dee Mtz, Ben Saldivar and colleagues, with an educational michael from [employer]. Thrive Questionnaire Date Thrive assessed: 11/20/23 I am a: Patient What is your living situation today?: I have a steady place to live Within the past 12 months, did the food you bought not last and you didn't have the money to get more?: Never true Within the past 12 months, did you worry whether your food would run out before you got money to buy more?: Never true Do you have trouble paying for medicines?: No Do you have trouble getting transportation to medical appointments?: No Do you have trouble paying your heating and electricity bill?: No Do you have trouble taking care of your child, family member or friend?: No Do you have trouble with day-to-day activities such as bathing, preparing meals, shopping, managing finances, etc.?: No Are you currently unemployed and looking for a job?: No Are you interested in more education?: No AUDIT C Alcohol Use Questionnaire (AUDIT-C) 1. How often do you have a drink containing alcohol?: Never 2. How many drinks containing alcohol do you have on a typical day when you are drinking?: 1 or 2 3. How often do you have six or more drinks on one occasion?: Never Total Score: 0 LALY-7 AMB Questionnaire LALY-7 Date LALY - 7 assessed: 11/20/23 Feeling nervous, anxious, or on edge: 3 = Nearly every day Not being able to stop or control worryin = Nearly every day Worrying too much about different things: 3 = Nearly every day Trouble relaxin = Nearly every day Being so restless that it is hard to sit still: 3 = Nearly every day Becoming easily annoyed or irritable: 3 = Nearly every day Feeling afraid as if something awful might happen: 0 = Not at all Total LALY-7 score (0-4 normal; 5-9 mild; 10-14 moderate; 15-21 severe): 18 Source: Developed by Drs. Barak Beltran, Dee Mtz, Ben Saldivar and colleagues, with an educational michael from [employer]. Review of Systems Const Denies poor appetite and Denies weakness Eyes Denies no additional complaints ENT Reports Normal hearing present, Denies dizziness, Denies nasal congestion, Denies tinnitus and Denies sore throat Card Denies chest pain, Denies syncope, Denies rapid heart rate and Denies dyspnea Resp Denies cough and Denies dyspnea GI Denies change in stool character, Reports constipation, Denies diarrhea, Denies nausea and Denies vomiting Denies urinary frequency, Denies difficulty voiding and Denies dysuria Neuro Reports Normal hearing present, Denies confusion, Denies dizziness, Denies syncope and Denies weakness Psych Denies confusion Physical exam (Primary Care) Vital Signs: Last Vital Signs Pulse 86 11/20/23 12:51 BP 118/90 H 11/20/23 12:51 Pulse Ox 99 11/20/23 12:51 Oxygen Delivery Method Room Air 11/20/23 12:51 BMI result Body Mass Index 27.0 Tobacco/Smoking Status: Tobacco use Status Tobacco use date assessed 11/20/23 11/20/23 12:52 Patient Tobacco Use Status Current everyday Tobacco 11/20/23 13:25 Tobacco use type Cigarette 11/20/23 13:25 e-Cigarette/Vaping Use Never Used 11/20/23 13:25 PHQ-9: PHQ-9 Score PHQ-9: Total score 0 11/20/23 13:13 Depression Screening Interpretation: Negative Thrive Assessment: Date of Thrive Assessment Date Thrive assessed 11/20/23 11/20/23 12:52 Const General: alert and awake; No confusion Orientation/consciousness: No confusion HENMT Head: Yes normocephalic Ears: external ears normal and TM's normal bilaterally Face and sinus: Yes normal facial exam Mouth: moist mucous membranes Throat: Yes tonsils normal Eyes Conjunctivae: conjunctivae normal Pupils: Equal, round and reactive pupils present and Pupil accommodation reflex normal Direct Ophthalmoscopy: normal light reflex Neck Neck: No lymphadenopathy Thyroid: Thyroid normal Chest Chest palpation & inspection: normal inspection of the chest Resp Effort & Inspection: normal respiratory effort and no audible wheezes Auscultation: clear to auscultation bilaterally, no crackles, no wheezes and lung sounds not diminished Cardio Rate: regular rate Rhythm: regular rhythm Peripheral pulses: radial pulses present and dorsalis pedis present GI Palpation (GI): no masses Auscultation: normal bowel sounds and normoactive bowel sounds Rectal Exam - Female: deferred Skin General skin exam: no rashes or lesions noted Rashes: no rashes Neuro General: deep tendon reflexes 2+ bilaterally and No confusion Cranial nerves: Yes Equal, round and reactive pupils present, Yes Midline tongue present, Yes Normal hearing present and Yes Ability to bilaterally elevate shoulders present Cognition (Neuro): normal cognition Gait exam (Neuro): Normal gait present Motor exam (neuro): 5/5 motor strength present throughout Deep tendon reflexes (DTR's): Right brachioradialis reflex intensity grade: 2+, Left brachioradialis reflex intensity grade: 2+, Right patellar reflex intensity grade: 2+ and Left patellar reflex intensity grade: 2+ Extrem General: No edema Office Procedures Flu Questionnaire Does the patient have a severe egg allergy?: No Does the patient have severe life threatening allergies?: No Does the patient have a fever or illness today?: No Has the patient ever had Guillain-Soddy Daisy Syndrome?: No Has the patient ever had any past reaction to a flu shot?: No Immunizations flu vacc [id number] 6mos up(PF) 60 mcg(15 mcgx4)/0.5 mL IM syringe Performing Provider: Tammy Lewis MD [facility] [place] Administered by: MADDI Mukherjee on 11/20/23 13:41 Dose Route Admin Location Dispensed Lot Number Expiration Date [employer] 0.5 mL IM Left Deltoid 0.5 mL [id number] 05/09/24 41833-365-91 [email or web address] VIS Given Date VIS Provided VIS Publication Date 11/20/23 Single Vaccine 21 Eligibility Eligibility Date Funding Source Not [facility] Eligible 11/20/23 Private Assessment and Plan Assessment & Plan (1) Annual physical exam: Code(s): Z00.00 - Encounter for general adult medical examination without abnormal findings (2) Erosive gastritis: Code(s): K29.60 - Other gastritis without bleeding Plan: Avoid the foods that causes that usually spicy foods, tomato products, juices, coffee, soda and foods that your sensitive to. After eating do not lie down, allow 3-4 hours before in lie down. And keep the head of bed above 30 degrees to avoid the acid from going up. Presently on pantoprazole 40 mg once a day (3) Post-traumatic stress disorder: Comment: [facility] Code(s): F43.10 - Post-traumatic stress disorder, unspecified Plan: Continue with counseling and therapy (4) Generalized anxiety disorder: Code(s): F41.1 - Generalized anxiety disorder Plan: Continue with counseling and therapy (5) Blood pressure elevated without history of HTN: Code(s): R03.0 - Elevated blood-pressure reading, without diagnosis of hypertension Plan: monitor BP at home and record Orders: Orders Complete Blood Count Auto Diff 3 Months R03.0 - Elevated blood-pressure reading, without diagnosis of hypertension Free T4 (Free Thyroxine) 3 Months R03.0 - Elevated blood-pressure reading, without diagnosis of hypertension Influenza [id number] Immunization Today Z23 - Encounter for immunization Comprehensive Met. Panel 3 Months R03.0 - Elevated blood-pressure reading, without diagnosis of hypertension Thyroid Stimulating Hormone 3 Months R03.0 - Elevated blood-pressure reading, without diagnosis of hypertension Lipid Panel 3 Months E78.00 - Pure hypercholesterolemia, unspecified, R03.0 - Elevated blood-pressure reading, without diagnosis of hypertension Vitamin B12 and Folate 3 Months R03.0 - Elevated blood-pressure reading, without diagnosis of hypertension Medications: Changed From clonidine HCl 0.3 mg (3 x 0.1 mg) PO BEDTIME 180 tabs 1RF F41.1 - Generalized anxiety disorder, G47.00 - Insomnia, unspecified To clonidine HCl 0.1 mg PO BEDTIME 30 tabs 2RF F41.1 - Generalized anxiety disorder, G47.00 - Insomnia, unspecified Refilled clonidine HCl 0.1 mg PO BEDTIME 30 tabs 2RF F41.1 - Generalized anxiety disorder, G47.00 - Insomnia, unspecified Coding Level of Care Code Est Pt Prev Care 18-39y(71079) Diagnoses Annual physical exam Z00.00 Erosive gastritis K29.60 Post-traumatic stress disorder F43.10 Generalized anxiety disorder F41.1 Blood pressure elevated without history of HTN R03.0
== END 2023-11-20 14:27 | disposition home or self-care (01) ==
PROVIDERS: PCP Internal Medicine; Visit Provider Internal Medicine
DX: Z00.00 Encounter for general adult medical examination without abnormal findings (principal); K29.60 Other gastritis without bleeding; F43.10 Post-traumatic stress disorder, unspecified; Z23 Encounter for immunization; F41.1 Generalized anxiety disorder; R03.0 Elevated blood-pressure reading, without diagnosis of hypertension
CPT/HCPCS: 90471; 90686; 99395

== ENCOUNTER 2023-12-18 14:04 | Outpatient (AMB) | payer OTHER, SELFPAY ==
--- NOTE | 2023-12-18 14:20 | MHC.OFFVIS ---
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 She denies any pelvic pain or urinary symptoms. Currently on the end of her menses. She denies any risk to , admits to not being sexually active in many months. She reports she is in counseling currently due to her past trauma and taking a break from dating. [facility] Medical History (Updated 11/20/23 @ 13:15 by Tammy Lewis MD) Dysuria Frequency of urination Diastasis recti Well woman exam Dental infection Family planning initiation Elevated plasma metanephrines Enterocolitis Nausea & vomiting Cannabis abuse with other cannabis-induced disorder Annual physical exam Hyperkalemia Pelvic pain Severe major depression Tobacco abuse Screen for STD (sexually transmitted disease) Abnormal uterine bleeding Depot contraception Status post therapeutic Status post drug-induced Nicotine dependence Constipation Iron deficiency anemia Muscle weakness Hospital discharge follow-up test positive Hemoptysis Surgical History History of esophagogastroduodenoscopy (EGD) Hx of section Family History (Updated 11/20/23 @ 13:24 by Tammy Lewis MD) Maternal Aunt Colon cancer Maternal Grandfather Heart attack Other Mental health disorder Social History (Updated 11/20/23 @ 13:25 by Tammy Lewis MD) Housing: Apartment Alcohol intake: never Patient Tobacco Use Status: Current everyday Tobacco user Tobacco use type: Cigarette Cigarettes Per Day: 4 Years Smoked: stopped 04/2022 smokes marijuana, 4 cigarettes a week (11/2023) e-Cigarette/Vaping Use: Never Used Substance Use Type: Marijuana service: No Current occupational status: employed Gender identity: Female Cognitive needs: No Hearing needs: No Vision needs: No Female Reproductive History Menstrual Age of Menarche: 13 Date of last menstrual period: 12/04/23 Review of Systems Const All systems reviewed & are unremarkable except as noted in HPI and below Physical Exam Vital Signs: Last Vital Signs BP 114/70 12/18/23 14:21 BMI result Body Mass Index 27.0 Const General: cooperative, healthy appearing and no acute distress Orientation/consciousness: patient oriented x3 GI Inspection: Yes normal to inspection Palpation (GI): Soft to palpation and Other GI palpation findings present (Nontender) Rectal Exam - Female: visual inspection normal General: Yes bladder normal to palpation External Female Exam: normal appearance of the urethra Speculum Exam - Vagina: normal appearance of the vagina, normal palpation, normal vaginal discharge and vaginal bleeding Speculum Exam - Cervix: normal appearance of the cervix and normal palpation Bimanual exam- vagina & uterus: normal bimanual exam, normal palpation, uterine size normal, bladder normal to palpation, normal palpation, uterine shape normal and non-tender Bimanual Exam- Adnexa, other: normal adnexae OB/external & speculum: vaginal bleeding Neuro General: patient oriented x3 Office Procedures Depo Questionnaire If YES to any of the following questions, please consult a provider. Date of last injection: 05/27/23 Date of last gynecology exam: 03/07/23 Menstrual pattern since last injection has been: Light test in office results: Negative Irregular bleeding?: No Breast lumps or other breast changes?: No Changes in weight or appetite?: No Depression or changes in mood?: No Abnormal hair growth or loss?: No Skin problems (rash, acne, discoloration)?: No Pain at the injection site?: No Headaches?: No Nervousness?: No Abdominal pain or cramping?: No Dizziness or nausea?: No Fatigue or weakness?: No Decrease in sexual drive?: No Chest pain or shortness of breath?: No Swelling in arms or legs?: No Form completed by?: Aftab Benavides LPN Office Meds Depo-Provera 150 mg/mL intramuscular suspension Performing Provider: Caitlin Jones CNM [place] [facility] [facility] Administered by: Emilee Benavides LPN on 12/18/23 15:40 Dose Route Admin Location Dispensed Lot Number Expiration Date [employer] Lineman 150 mg IM 1 mL [id number] 07/10/25 60257-275-02 [employer] Depo-Provera 150 mg/mL intramuscular syringe Performing Provider: Caitlin Jones CNM [place]forming [place] [facility] [place] [facility] [place] [facility] Documented (not given) by: Emilee Benavides LPN on 12/18/23 15:40 Dose Route Admin Location Dispensed Lot Number Expiration Date NDC Distribution Lineman 150 mg IM mL Results AMB Test Urine AMB Test Urine Negative Last Edit by MADDI Herrmann on 12/18/23 15:15 Results Reviewed Results Reviewed: Laboratory Last Values Tst Clinic Negative 12/18/23 15:14 Assessment & Plan Assessment & Plan (1) Initiation of Depo Provera: Code(s): Z30.013 - Encounter for initial prescription of injectable contraceptive (2) Vaginal odor: Code(s): N89.8 - Other specified noninflammatory disorders of vagina Plan BV panel obtained. Advised if sexually active in the future to always use condoms. Returned to the office in February for annual exam or sooner if needed Depo-Provera administration today. Return to the office for Depo-Provera every 12 weeks. All of her questions and concerns were addressed to the best of my ability. This note is constructed using voice recognition software. While every effort has been made to ensure accuracy, clinical unit coordinator errors may have been included. Orders: Orders AMB HCG Urine Test Today Z32.02 - Encounter for test, result negative Bacterial Vaginosis Panel Today N89.8 - Other specified noninflammatory disorders of vagina AMB Medroxyprogesterone Injection Patient Supplied Today Z30.013 - Encounter for initial prescription of injectable contraceptive Medications: New Depo-Provera (medroxyprogesterone) 150 mg IM ONCE 1 mL 0RF NS Z30.013 - Encounter for initial prescription of injectable contraceptive Coding Level of Care Code Est Pt Level 3 (19909) Diagnoses Initiation of Depo Provera Z30.013 Vaginal odor N89.8
[2023-12-18 14:21] VITALS: BP 114/70; BMI 27.0
== END 2023-12-18 16:07 | disposition home or self-care (01) ==
LOC: HO.HWS 14:04
PROVIDERS: PCP Internal Medicine; Visit Provider Advanced Practice Midwife
DX: Z30.013 Encounter for initial prescription of injectable contraceptive (principal); N89.8 Other specified noninflammatory disorders of vagina; Z32.02 Encounter for pregnancy test, result negative
CPT/HCPCS: 99213

== ENCOUNTER 2023-12-18 14:04 | Outpatient (REF) | payer OTHER, SELFPAY ==
[2023-12-19 08:42] LABS: BV Int Neg Control Negative (Negative); BV Int Pos Control Positive (Positive)
== END 2023-12-18 14:05 | disposition home or self-care (01) ==
LOC: HO.LAB 14:04
PROVIDERS: PCP Internal Medicine; Visit Provider Advanced Practice Midwife
DX: Z30.013 Encounter for initial prescription of injectable contraceptive (principal); N89.8 Other specified noninflammatory disorders of vagina
CPT/HCPCS: 81025; 87480; 87510; 87660; 96372; 99212; J1050

== ENCOUNTER 2024-03-05 16:25 | Outpatient (AMB) | payer OTHER, SELFPAY ==
--- NOTE | 2024-03-05 16:25 | MHC.PC.OV ---
Vital Signs 03/05/24 16:28 Height 5 ft 6 in Intake Visit Reasons: 3M Follow Up Intake Note: Patient is here to follow up on Migraine, LALY, . 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 Maintenance Cleaning: Not Required per policy Accompanied by: Self / Same As Patient Allergies codeine [CODEINE] Allergy (Unknown, Verified 03/05/24 16:27) NAUSEA & VOMITING Medication List - Last Reconciled 03/05/24 by Tammy Lewis MD celecoxib 100 mg PO BID clonidine HCl 0.1 mg PO BEDTIME medroxyprogesterone (Depo-Provera) 150 mg IM [id number] 3 months ondansetron 4 mg PO Q8H PRN pantoprazole 40 mg PO DAILY sucralfate (Carafate) 10 mL PO BID Tobacco use date assessed: 03/05/24 Dental Screening Dental Screen Date: 11/20/23 HPI 3M Follow Up HPI Details 34-year-old overweight female with a history of erosive gastritis PTSD generalized anxiety disorder coming in for follow-up last seen in November 2023 concern about an elevated blood pressure and was advised to monitor. Patient was advised to get blood work [facility] Medical History (Updated 03/05/24 @ 16:54 by Tammy Lewis MD) Dysuria Frequency of urination Diastasis recti Well woman exam Dental infection Family planning initiation Elevated plasma metanephrines Enterocolitis Nausea & vomiting Cannabis abuse with other cannabis-induced disorder Annual physical exam Hyperkalemia Pelvic pain Severe major depression Tobacco abuse Screen for STD (sexually transmitted disease) Abnormal uterine bleeding Depot contraception Status post therapeutic Status post drug-induced Nicotine dependence Constipation Iron deficiency anemia Muscle weakness Hospital discharge follow-up test positive Hemoptysis Surgical History History of esophagogastroduodenoscopy (EGD) Hx of section Family History (Updated 11/20/23 @ 13:24 by Tammy Lweis MD) Maternal Aunt Colon cancer Maternal Grandfather Heart attack Other Mental health disorder Social History (Updated 03/05/24 @ 16:28 by MADDI Guillory) Housing: Apartment Alcohol intake: never Patient Tobacco Use Status: Current someday Tobacco user Tobacco use type: Cigarette Cigarettes Per Day: 4 Years Smoked: stopped 04/2022 smokes marijuana, 4 cigarettes a week (11/2023) e-Cigarette/Vaping Use: Never Used Second Hand Smoke Exposure: Yes Substance Use Type: Marijuana service: No Current occupational status: employed Gender identity: Female Cognitive needs: No Hearing needs: No Vision needs: No Female Reproductive History Menstrual Age of Menarche: 13 Questionnaire Thrive Questionnaire Date Thrive assessed: 11/20/23 LALY-7 AMB Questionnaire LALY-7 Date LALY - 7 assessed: 11/20/23 Source: Developed by Drs. Barak Beltran, Dee Mtz, Ben Saldivar and colleagues, with an educational michael from [employer]. Physical exam (Primary Care) Tobacco/Smoking Status: Tobacco use Status Tobacco use date assessed 03/05/24 03/05/24 16:29 Patient Tobacco Use Status Current someday Tobacco 03/05/24 16:29 Tobacco use type Cigarette 03/05/24 16:29 e-Cigarette/Vaping Use Never Used 03/05/24 16:29 Thrive Assessment: Date of Thrive Assessment Date Thrive assessed 11/20/23 03/05/24 16:29 Telehealth Telehealth Telehealth Platform: Telephone Location of provider rendering services: practice address Location of patient: address on file Patient Identification confirmed using: Name, : Yes Telehealth method: voice only Patient verbally consented to treatment: Yes Patient verbally consented to billing insurance company: Yes Patient informed of any privacy concerns related to visit: Yes Minutes spent on Phone/Video with Pt.: 25 Assessment and Plan Assessment & Plan (1) Blood pressure elevated without history of HTN: Code(s): R03.0 - Elevated blood-pressure reading, without diagnosis of hypertension Plan: Advised to continue monitoring the blood pressure. Patient is reminded about the blood work. (2) Generalized anxiety disorder: Comment: [facility] Counseling Code(s): F41.1 - Generalized anxiety disorder Plan: Continue with counseling and therapy (3) Overweight (BMI 25.0-29.9): Code(s): E66.3 - Overweight Plan: Continue with diet and exercise (4) GERD (gastroesophageal reflux disease): Code(s): K21.9 - Gastro-esophageal reflux disease without esophagitis Plan: Avoid the foods that causes that usually spicy foods, tomato products, juices, coffee, soda and foods that your sensitive to. After eating do not lie down, allow 3-4 hours before in lie down. And keep the head of bed above 30 degrees to avoid the acid from going up. doing good Coding Level of Care Code Tele Est Pt Level 4 (95996) Diagnoses Blood pressure elevated without history of HTN R03.0 Generalized anxiety disorder F41.1 Overweight (BMI 25.0-29.9) E66.3 GERD (gastroesophageal reflux disease) K21.9
== END 2024-03-05 17:11 | disposition home or self-care (01) ==
LOC: HO.HMGH 16:25
PROVIDERS: PCP Internal Medicine; Visit Provider Internal Medicine
DX: R03.0 Elevated blood-pressure reading, without diagnosis of hypertension (principal); F41.1 Generalized anxiety disorder; E66.3 Overweight; K21.9 Gastro-esophageal reflux disease without esophagitis
CPT/HCPCS: 99214

== ENCOUNTER → 2024-03-08 14:54 | Outpatient (BNVA) | payer OTHER, SELFPAY | PROVIDERS: PCP Internal Medicine; Visit Provider Advanced Practice Midwife | DX: Z01.419 Encounter for gynecological examination (general) (routine) without abnormal findings (principal) | CPT/HCPCS: 99395 ==

== ENCOUNTER 2024-03-08 15:16 | Outpatient (AMB) | payer OTHER, SELFPAY ==
[2024-03-08 15:36] VITALS: BP 110/70; BMI 30.7
--- NOTE | 2024-03-08 15:36 | MHC.OFFVIS ---
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 The patient is presenting for another Depo-Provera shot has gained 30 lbs over the last 3 months and is complaining of mood changes Last Pap/HPV was negative in 03/02 Last Depo-Provera was in 12/18/2023 [facility] Medical History Well woman exam Dysuria Frequency of urination Diastasis recti Dental infection Family planning initiation Elevated plasma metanephrines Enterocolitis Nausea & vomiting Cannabis abuse with other cannabis-induced disorder Annual physical exam Hyperkalemia Pelvic pain Severe major depression Tobacco abuse Screen for STD (sexually transmitted disease) Abnormal uterine bleeding Depot contraception Status post therapeutic Status post drug-induced Nicotine dependence Constipation Iron deficiency anemia Muscle weakness Hospital discharge follow-up test positive Hemoptysis Surgical History History of esophagogastroduodenoscopy (EGD) Hx of section Family History Maternal Aunt Colon cancer Maternal Grandfather Heart attack Other Mental health disorder Social History Housing: Apartment Alcohol intake: never Patient Tobacco Use Status: Current someday Tobacco user Tobacco use type: Cigarette Cigarettes Per Day: 4 Years Smoked: stopped 04/2022 smokes marijuana, 4 cigarettes a week (11/2023) e-Cigarette/Vaping Use: Never Used Second Hand Smoke Exposure: Yes Substance Use Type: Marijuana service: No Current occupational status: employed Gender identity: Female Cognitive needs: No Hearing needs: No Vision needs: No Female Reproductive History Menstrual Age of Menarche: 13 control method: progesterone injection Total pregnancies: 3 Full term: 1 Number of Living Children: 1 Ab induced: 1 Ectopics: 1 Date of last pap smear: 03/06/23 (neg pap and hpv) History of abnormal pap smear: Yes Review of Systems Const All systems reviewed & are unremarkable except as noted in HPI and below Card Reports as per HPI Resp Reports as per HPI GI Reports as per HPI and Reports no additional complaints Reports as per HPI Physical Exam Vital Signs: Last Vital Signs BP 110/70 03/08/24 15:36 BMI result Body Mass Index 30.7 Const General: cooperative, healthy appearing and comfortable Chest Chest palpation & inspection: normal inspection of the chest and normal palpation of entire chest wall Breast/axilla inspection: normal inspection of the breasts and normal inspection of the axillae Breast/axilla palpation: normal palpation of the breasts, normal palpation of the axillae and no axillary lymphadenopathy Resp Effort & Inspection: normal respiratory effort Auscultation: clear to auscultation bilaterally Percussion: percussion normal Cardio Palpation: normal PMI Rate: regular rate Rhythm: regular rhythm Heart sounds: no murmurs and no rubs Peripheral pulses: Peripheral pulses 2+ throughout GI Inspection: Yes normal to inspection Palpation (GI): Soft to palpation, nontender, no guarding, not rigid and No hepatosplenomegaly present Percussion: Yes normal to percussion Auscultation: normal bowel sounds Rectal Exam - Female: deferred General: Yes bladder normal to palpation External Female Exam: No lesion Speculum Exam - Vagina: normal appearance of the vagina, normal palpation, normal vaginal discharge and not erythematous Speculum Exam - Cervix: normal appearance of the cervix and normal palpation Bimanual exam- vagina & uterus: normal bimanual exam, normal palpation, uterine size normal, bladder normal to palpation, consistency normal and normal palpation Bimanual Exam- Adnexa, other: normal adnexae, no masses and no tenderness Assessment & Plan Assessment & Plan (1) Well woman exam: Code(s): Z01.419 - Encounter for gynecological examination (general) (routine) without abnormal findings Category: Medical Plan: Cotesting not indicated this year. Counseled the patient about the recommended dietary allowance of 1000 mg of Calcium & 600 IU of vitamin D. The patient was instructed to perform monthly self-breast exams and to schedule an annual exam in a year; All questions answered and the patient verbalized understanding. Instructed the patient to schedule annual exam in a year (2) Encounter for Depo-Provera contraception: Code(s): Z30.42 - Encounter for surveillance of injectable contraceptive Category: Medical Plan: Discussed with the patient the current side effects of her Depo-Provera, 30 lb weight gain in 3 months and mood changes recommended discontinue Depo-Provera. Discussed with the patient the different options of control including control pills/Nuvaring,, IUD ( levonorgestrel, Copper). All the pros, cons, risks and benefits of each were discussed with the patient. The patient decided to do nothing for the time being. Instructions were given to use a back- up method for contraception x 1st 2 weeks, and to schedule a 3 months appointment for blood pressure check Coding Level of Care Code Est Pt Prev Care 18-39y(39742) Diagnoses Well woman exam Z01.419 Encounter for Depo-Provera contraception Z30.42
== END 2024-03-08 16:27 | disposition home or self-care (01) ==
PROVIDERS: PCP Internal Medicine; Visit Provider Obstetrics & Gynecology
DX: Z01.419 Encounter for gynecological examination (general) (routine) without abnormal findings (principal); Z30.42 Encounter for surveillance of injectable contraceptive
CPT/HCPCS: 99395

== ENCOUNTER 2024-08-12 14:00 | Outpatient (REF) | payer MEDICAID, SELFPAY ==
[2024-08-13 09:58] LABS: Bacterial Vaginosis PCR NEGATIVE (Negative); Candida Group PCR NOT DETECTED (Not Detect); Candida glab krusei PCR NOT DETECTED (Not Detect); Trichomonas vaginalis PCR NOT DETECTED (Not Detect)
== END 2024-08-12 14:01 | disposition home or self-care (01) ==
LOC: HO.LNP 14:00
PROVIDERS: PCP Internal Medicine; Visit Provider Obstetrics & Gynecology
DX: Z11.3 Encounter for screening for infections with a predominantly sexual mode of transmission (principal); Z30.09 Encounter for other general counseling and advice on contraception; E78.00 Pure hypercholesterolemia, unspecified; R03.0 Elevated blood-pressure reading, without diagnosis of hypertension; K29.60 Other gastritis without bleeding
CPT/HCPCS: 0352U; 36415; 80053; 80061; 81003; 82607; 82728; 82746; 84439; 84443; 85025; 87491; 87591; 99212

== ENCOUNTER 2024-08-12 14:00 | Outpatient (AMB) | payer MEDICAID, SELFPAY ==
--- NOTE | 2024-08-12 14:02 | A.OFFVIS_ITS ---
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 Target: Manager Target Present (Graciela LINDA) Accompanied by: Daughter Allergies codeine [CODEINE] Allergy (Unknown, Verified 08/12/24 14:13) NAUSEA & VOMITING Is last menstrual period known: Yes Last menstrual period: 07/25/24 HPI Comments Details: Presenting to discuss different options of contraception and would like STD screen [facility] Medical History Well woman exam Dysuria Frequency of urination Diastasis recti Dental infection Family planning initiation Elevated plasma metanephrines Enterocolitis Nausea & vomiting Cannabis abuse with other cannabis-induced disorder Annual physical exam Hyperkalemia Pelvic pain Severe major depression Tobacco abuse Screen for STD (sexually transmitted disease) Abnormal uterine bleeding Depot contraception Status post therapeutic Status post drug-induced Nicotine dependence Constipation Iron deficiency anemia Muscle weakness Hospital discharge follow-up test positive Hemoptysis Surgical History History of esophagogastroduodenoscopy (EGD) Hx of section Family History Maternal Aunt Colon cancer Maternal Grandfather Heart attack Other Mental health disorder Social History Housing: Apartment Alcohol intake: never Patient Tobacco Use Status: Current someday Tobacco user Tobacco use type: Cigarette Cigarettes Per Day: 4 Years Smoked: stopped 04/2022 smokes marijuana, 4 cigarettes a week (11/2023) e-Cigarette/Vaping Use: Never Used Second Hand Smoke Exposure: Yes Substance Use Type: Marijuana service: No Current occupational status: employed Gender identity: Female Cognitive needs: No Hearing needs: No Vision needs: No Female Reproductive History Menstrual Age of Menarche: 13 Date of last menstrual period: 07/25/24 Review of Systems Const All systems reviewed & are unremarkable except as noted in HPI and below Physical Exam General: Yes no CVA tenderness External Female Exam: normal external appearance and normal appearance of the urethra Speculum Exam - Vagina: normal appearance of the vagina, normal palpation, no lesions and no masses Speculum Exam - Cervix: normal appearance of the cervix, normal palpation, no lesions, no masses and nontender Bimanual exam- vagina & uterus: normal bimanual exam, normal palpation, uterine size normal, normal palpation, uterine shape normal, No Cervical tenderness present and non-tender Bimanual Exam- Adnexa, other: normal adnexae Back/Spine/Pelvis Back: no CVA tenderness Assessment & Plan Assessment & Plan (1) Family planning initiation: Code(s): Z30.09 - Encounter for other general counseling and advice on contraception Category: Social Hx Plan: Discussed with the patient the different options of control including control pills/Nuvaring, DMPA, IUD (Mirena, Paraguard), sterilization. All the pros, cons, risks and benefits of each were discussed with the patient. The patient decided to go ahead with DMPA so a more detailed discussion re: Depo- Provera including mechanism of action, benefits (amenorrhea after initial dub, ...), risks ( mood lability, weight gain, initial dub, bone loss reversible, ? increase Breast Cancer risk, others). Instructions were given to use a back up method for contraception till next day 1 of menses and will give the patient DMPA day1-5 next cycle. The patient verbalized understanding. (2) Screen for STD (sexually transmitted disease): Code(s): Z11.3 - Encounter for screening for infections with a predominantly sexual mode of transmission Category: Medical Plan: STD screening tests done includes: BV panel for trichomonas, GC/CT will send patient for serology std screening for HIV, RPR, Hep b s Ag, HepC Ab. Instructions given the patient to schedule a follow-up appointment for repeat serology screen in 6 months for possible false negatives. Medications: New medroxyprogesterone (Depo-Provera) 150 mg IM [id number] 1 mL 3RF Coding Level of Care Code Est Pt Level 3 (97379) Diagnoses Family planning initiation Z. Screen for STD (sexually transmitted disease) Z11.3
[2024-08-12 14:13] VITALS: BMI 30.6
== END 2024-08-12 14:27 | disposition home or self-care (01) ==
PROVIDERS: PCP Internal Medicine; Visit Provider Obstetrics & Gynecology
DX: Z30.09 Encounter for other general counseling and advice on contraception (principal)
CPT/HCPCS: 99213

== ENCOUNTER 2024-08-12 14:30 | Outpatient (REF) | payer MEDICAID, SELFPAY ==
[2024-08-12 14:44] LABS: MANUAL DIFF FLAG NO
[2024-08-12 15:10] LABS: Basophils Percent Auto 0.4 % (0-2); Eosinophils Absolute Auto 0.1 X10*3/uL (0.0-0.4); Eosinophils Percent Auto 0.6 % (0-4); Hematocrit 42.3 % (37.0-47.0); Hemoglobin 14.4 g/dl (12.0-16.0); Imm Gran Abs Auto 0.03 X10*3/uL (0.00-0.03); Imm Gran Pct Auto 0.4 % (0.0-0.4); Lymphocytes Percent Auto 23.3 % (20-40); Mean Corpuscular Hemoglobin 30.3 pg (27.0-33.0); Mean Corpuscular Volume 89.1 fL (80.0-98.0); Mean Platelet Volume 9.7 fL (9.4-12.3); Monocytes Absolute Auto 0.7 X10*3/uL (0.1-1.2); Monocytes Percent Auto 7.9 % (2-11); Neutrophils Absolute Auto 5.7 x10*3/uL (2.0-8.3); Neutrophils Percent Auto 67.4 % (45-73); Platelet Count 320 X10*3/uL (160-400); Red Blood Count 4.75 X10*6/uL (4.20-5.50); Red Cell Distribution Width 11.9 % (11.0-16.0); White Blood Count 8.4 X10*3/uL (4.8-10.8)
[2024-08-12 15:32] LABS: Appearance Urine Clear; Color Urine Dark Yellow; Glucose Urine UA Negative (Negative); Leukocyte Esterase Urine Negative (Negative); Nitrite Urine Negative (Negative); PH 5.5 (5.0-9.0); Specific Gravity - Urine >= 1.030 (1.005-1.025); Urine Blood Negative (Negative); Urine Ketones Trace mg/dL (Negative); Urine Protein Trace mg/dL (Neg-Trace)
[2024-08-12 15:47] LABS: Alanine Aminotransferase 15 U/L (0-31); Albumin Level 4.6 g/dL (3.5-5.0); Alkaline Phosphatase 68 U/L (39-117); Anion Gap 13 (12-20); Aspartate Amino Transferase 15 U/L (5-31); Bilirubin Total 0.4 mg/dL (0.0-1.0); Blood Urea Nitrogen 8 mg/dL (9-16); Calcium 9.8 mg/dL (8.4-10.2); Carbon Dioxide 27 mmol/L (22-29); Chloride 106 mmol/L (96-108); Cholesterol 189 mg/dL (<200); Estimated Glomerular Filt Rate > 60; Glucose Random 105 mg/dL (60-115); HDL Cholesterol 40 mg/dL (>40); LDL Cholesterol Calculated 127 mg/dL (<100); Potassium 3.4 mmol/L (3.3-5.1); Sodium 143 mmol/L (135-145); Total Protein 7.8 g/dL (6.5-8.0); Triglycerides 111 mg/dL (<150)
[2024-08-12 16:02] LABS: Ferritin 72 ng/mL (10-122); Free T4 (Free Thyroxine) 1.06 ng/dL (0.71-1.85); Thyroid Stimulating Hormone 0.19 uIU/mL (0.32-4.0)
[2024-08-12 16:13] LABS: Folate 11.3 ng/mL (> or = 4.0); Vitamin B12 513 pg/mL (200-900)
[2024-08-13 05:58] LABS: CT PCR NOT DETECTED (Not Detect.); NG PCR NOT DETECTED (Not Detect.)
== END 2024-08-12 14:31 | disposition home or self-care (01) ==
LOC: HO.LAB 14:30
PROVIDERS: Internal Medicine Gastroenterology; PCP Internal Medicine; Visit Provider Obstetrics & Gynecology
DX: Z11.3 Encounter for screening for infections with a predominantly sexual mode of transmission (principal); Z30.09 Encounter for other general counseling and advice on contraception; R03.0 Elevated blood-pressure reading, without diagnosis of hypertension; E78.00 Pure hypercholesterolemia, unspecified; K29.60 Other gastritis without bleeding; R30.0 Dysuria
CPT/HCPCS: 36415; 80053; 80061; 81003; 82607; 82728; 82746; 84439; 84443; 85025; 87491; 87591

== ENCOUNTER 2024-09-08 09:48 | Outpatient (REF) | payer OTHER, SELFPAY ==
--- NOTE | 2024-09-08 10:01 | ECG_ITS ---
Test Reason : R00.2 palps Blood Pressure : / mmHG Vent. Rate : 073 BPM Atrial Rate : 073 BPM P-R Int : 142 ms QRS Dur : 076 ms QT Int : 382 ms P-R-T Axes : 044 013 005 degrees QTc Int : 420 ms Normal sinus rhythm with sinus arrhythmia Nonspecific T wave abnormality Abnormal ECG No previous ECGs available Referred By: Tammy Lewis Electronically Signed By:MAGED MEDINA
[2024-09-08 10:32] LABS: MANUAL DIFF FLAG NO
[2024-09-08 10:36] LABS: Basophils Percent Auto 0.6 % (0-2); Eosinophils Absolute Auto 0.1 X10*3/uL (0.0-0.4); Eosinophils Percent Auto 1.5 % (0-4); Hematocrit 42.1 % (37.0-47.0); Hemoglobin 14.5 g/dl (12.0-16.0); Imm Gran Abs Auto 0.01 X10*3/uL (0.00-0.03); Imm Gran Pct Auto 0.1 % (0.0-0.4); Lymphocytes Absolute Auto 1.7 X10*3/uL (1.2-4.9); Lymphocytes Percent Auto 24.7 % (20-40); Mean Corpuscular HGB Conc 34.4 g/dl (31.0-35.0); Mean Corpuscular Hemoglobin 30.5 pg (27.0-33.0); Mean Corpuscular Volume 88.6 fL (80.0-98.0); Mean Platelet Volume 9.3 fL (9.4-12.3); Monocytes Absolute Auto 0.5 X10*3/uL (0.1-1.2); Monocytes Percent Auto 7.9 % (2-11); Neutrophils Absolute Auto 4.4 x10*3/uL (2.0-8.3); Neutrophils Percent Auto 65.2 % (45-73); Platelet Count 252 X10*3/uL (160-400); Red Blood Count 4.75 X10*6/uL (4.20-5.50); Red Cell Distribution Width 11.9 % (11.0-16.0); White Blood Count 6.7 X10*3/uL (4.8-10.8)
[2024-09-08 12:32] LABS: Free T4 (Free Thyroxine) 0.97 ng/dL (0.71-1.85)
[2024-09-08 12:45] LABS: Alanine Aminotransferase 26 U/L (0-31); Albumin Level 4.5 g/dL (3.5-5.0); Alkaline Phosphatase 68 U/L (39-117); Anion Gap 14 (12-20); Aspartate Amino Transferase 27 U/L (5-31); Bilirubin Total 0.3 mg/dL (0.0-1.0); Blood Urea Nitrogen 13 mg/dL (9-16); Calcium 9.2 mg/dL (8.4-10.2); Carbon Dioxide 24 mmol/L (22-29); Chloride 106 mmol/L (96-108); Estimated Glomerular Filt Rate > 60; Glucose Random 88 mg/dL (60-115); Potassium 3.8 mmol/L (3.3-5.1); Sodium 140 mmol/L (135-145); Total Protein 7.6 g/dL (6.5-8.0)
[2024-09-08 13:10] LABS: Ferritin 62 ng/mL (10-122); Thyroid Stimulating Hormone 0.21 uIU/mL (0.32-4.0)
== END 2024-09-08 09:49 | disposition home or self-care (01) ==
LOC: HO.LAB 09:48
PROVIDERS: Internal Medicine Gastroenterology; Absent Provider Dentist Pediatric Dentistry; PCP Internal Medicine; Visit Provider Internal Medicine
DX: K75.81 Nonalcoholic steatohepatitis (NASH) (principal); K29.60 Other gastritis without bleeding; R30.0 Dysuria; R00.2 Palpitations
CPT/HCPCS: 36415; 80053; 82728; 84439; 84443; 85025; 93005

== ENCOUNTER → 2024-09-08 10:01 | Outpatient (BNV) | payer OTHER, SELFPAY | PROVIDERS: Absent Provider Dentist Pediatric Dentistry; PCP Internal Medicine; Visit Provider Internal Medicine | DX: R94.31 Abnormal electrocardiogram [ECG] [EKG] (principal) | CPT/HCPCS: 93010 ==

== ENCOUNTER 2024-09-15 14:00 | Outpatient (AMB) | payer OTHER, SELFPAY ==
[2024-09-15 14:02] VITALS: BP 136/94; PULSE 84; BMI 29.7
--- NOTE | 2024-09-15 14:02 | A.OFFVIS_ITS ---
Vital Signs 09/15/24 14:02 Height 5 ft 6 in Weight 184 lb 1.376 oz BMI 29.7 BP 136/94 H Blood Pressure Location Lt brachial Position Sitting Pulse 84 Pulse Source Palpation Intake Visit Reasons: Thyrotoxicosis-conf Intake Note: New patient present today for Thyrotoxicosis office visit. Adult Psychiatrist Required: No Accompanied by: Self / Same As Patient Allergies codeine [CODEINE] Allergy (Unknown, Verified 09/15/24 14:05) NAUSEA & VOMITING Medication List - Last Reconciled 09/15/24 by Elizabeth Canales MD celecoxib 100 mg PO BID clonidine HCl 0.1 mg PO BEDTIME sucralfate (Carafate) 10 mL PO BID HPI Comments Details: 34-year-old female coming in today for initial evaluation of subclinical hyperthyroidism. She has previously been seen in our clinic in 2021 for concerns of mildly elevated metanephrines and normetanephrines by Dr. Chavez with subsequent normal 24 hr urine levels and normal CT abdomen hence she was discharge back to PCP. She continues to have these episodes with heart palpitaions (says she feels nervous all day with heart palpitations) , nausea, epigastric pain, self resolving. Reports tiredenss and excessive fatigue. Reports increased diaphoresis. Hence work up was done. Reports hot flashes. Off the depo since February 2024, periods are regular. LMP 08/25/24. Not planning any pregnancies, not sexually active currently. Gained 17 lbs since November. Labs 08/12/2024 showed low TSH of 0.19 with normal free T4 of 1.06, subsequent to labs on 09/08/2024 also showed low TSH of 0.21, with normal free T4 of 0.97. Smokes Marijuana constantly. Complaining of loose stools. Has seen GI , was evaluated with edoscopies EGD showed ersoive gastritis, She is currently not taking pantoprazole. Reports difficulty swallowing , reports choking sensations. no chnages in voice. Complaining of dryness, watery eyes. Patient denies any difficulty swallowing, pain on swallowing or voice changes or difficulty breathing. Patient denies any history of childhood neck radiation. Denies having ever used lithium, amiodarone or biotin supplements. Patient denies any family history of thyroid cancer or thyroid disease. Social history No alcohol Smokes 5-6 ciagrettes daily Smokes marijuana all the time Lives with mother and daughter and 2 brothers Studying Echolocation Physical exam General: sitting comfortably in no acute distress HEENT: normocephalic/atraumatic, EOM intact, moist oral mucosa Neck: supple, symmetrical, no thyromegaly , no dorsocervical or supraclavicular fat pads Cardiac: normal heart sounds Pulm: normal breath sounds B/L, no added breath sounds Abd: not distended, no tenderness Extremities: no edema, no signs of myxedema Neuro: AAO x3, Speech: normal, no facial droop, moving all 4 extremities bration Laboratory Tests 02/08/22 04/04/22 11/06/22 12:47 14:20 13:09 TSH 0.95 0.61 0.40 Free T4 1.03 08/12/24 09/08/24 14:42 10:29 TSH 0.19 L 0.21 L Free T4 1.06 0.97 Laboratory Tests 11/06/22 11/15/22 13:09 06:47 Plasma Free Metaneph 110 H Plasma Free Normeta 125 Plas Total Metaneph 235 H Urine Total Volume 1200 U Free Metanephrine 192 H U Normetanephrine 24h 258 U Tot Metanephrine 24h 450 PFSH Medical History Well woman exam Dysuria Frequency of urination Diastasis recti Dental infection Family planning initiation Elevated plasma metanephrines Enterocolitis Nausea & vomiting Cannabis abuse with other cannabis-induced disorder Annual physical exam Hyperkalemia Pelvic pain Severe major depression Tobacco abuse Screen for STD (sexually transmitted disease) Abnormal uterine bleeding Depot contraception Status post therapeutic Status post drug-induced Nicotine dependence Constipation Iron deficiency anemia Muscle weakness Hospital discharge follow-up test positive Hemoptysis Surgical History History of esophagogastroduodenoscopy (EGD) Hx of section Family History Maternal Aunt Colon cancer Maternal Grandfather Heart attack Other Mental health disorder Social History Housing: Apartment Alcohol intake: never Patient Tobacco Use Status: Current someday Tobacco user Tobacco use type: Cigarette Cigarettes Per Day: 4 Years Smoked: stopped 04/2022 smokes marijuana, 4 cigarettes a week (11/2023) e-Cigarette/Vaping Use: Never Used Second Hand Smoke Exposure: Yes Substance Use Type: Marijuana service: No Current occupational status: employed Gender identity: Female Cognitive needs: No Hearing needs: No Vision needs: No Female Reproductive History Menstrual Age of Menarche: 13 Physical Exam Vital Signs: Last Vital Signs BP 136/94 H 09/15/24 14:02 BMI result Body Mass Index 29.7 Assessment & Plan Assessment & Plan (1) Subclinical hyperthyroidism: Code(s): E05.90 - Thyrotoxicosis, unspecified without thyrotoxic crisis or storm Category: Medical Plan: Patient diagnosed with subclinical hyperthyroidism in August 2024 when labs showed 08/12/2024 showed low TSH of 0.19 with normal free T4 of 1.06, subsequent to labs on 09/08/2024 also showed low TSH of 0.21, with normal free T4 of 0.97. She does have significant symptoms palpitations, anxiety, however some of this could be attributed to generalized anxiety disorder, constant use of marijuana withdrawal from it when she is not using. She has gained weight which shows that she is not significantly hyperthyroid. No tremors on exam, no lid lag. Given those significant symptoms of episodic palpitations, plus her TSH is quite close to 0.1 I will evaluate for underlying Graves disease with TSI, trap antibodies. She is also complaining of difficulty swallowing and choking sensation we will also obtain an ultrasound of the thyroid to see if she has any nodules which could possibly be toxic. I discussed with her that she has subclinical hyperthyroidism and treatment criteria is TSH less than 0.1, age greater than 65, history of osteoporosis or heart disease. She does not meet any of these criteria, however she does have significant symptoms so we will evaluate further. No recent exposure to contrast. No recent viral illness to suggest thyroiditis. Previously your plasma metanephrine, normetanephrine were mildly elevated in back in 2021 when she was evaluated for these episodes, however subsequently CT abdomen showed normal adrenals and 24 hour urine levels were also normal. Given the way she is describing these episodic palpitations, associated with symptoms of nausea, diaphoresis I will recheck her plasma metanephrine normetanephrine levels. Plan: -ordered TSH, free T4, TSI, travel antibodies, total T3 to be done in 5 to 6 weeks -ordered thyroid ultrasound -ordered plasma metanephrine, normetanephrine levels -follow up in 8 weeks to discuss results Plan I spent 45 minutes in reviewing the record, seeing the patient and documenting in the medical record. Orders: Orders Free T4 (Free Thyroxine) 5 Weeks E0. - Thyrotoxicosis, unspecified without thyrotoxic crisis or storm Thyrotropin Receptor Antibody 5 Weeks E0 - Thyrotoxicosis, unspecified without thyrotoxic crisis or storm Triiodothyronine T3 Total 5 Weeks E0. - Thyrotoxicosis, unspecified without thyrotoxic crisis or storm Metanephrines, Plasma 5 Weeks E0. - Thyrotoxicosis, unspecified without thyrotoxic crisis or storm Thyroid Stimulating Immunoglob 5 Weeks E0. - Thyrotoxicosis, unspecified without thyrotoxic crisis or storm Thyroid Stimulating Hormone 5 Weeks E0. - Thyrotoxicosis, unspecified without thyrotoxic crisis or storm Thyroid Peroxidase Antibodies 5 Weeks E0. - Thyrotoxicosis, unspecified without thyrotoxic crisis or storm US thyroid 5 Weeks E0. - Thyrotoxicosis, unspecified without thyrotoxic crisis or storm Patient Instructions: Do blood work in 6 weeks Do Ultrasound of thyroid I will see you back in 8 weeks Coding Level of Care Code Est Pt Level 4 (16331) Diagnoses Subclinical hyperthyroidism E05. Time Spent (min) 45
== END 2024-09-15 14:48 | disposition home or self-care (01) ==
LOC: HO.ENCR 14:01
PROVIDERS: PCP Internal Medicine; Visit Provider Student in an Organized Health Care Education/Training Program
DX: E05.90 Thyrotoxicosis, unspecified without thyrotoxic crisis or storm (principal)
CPT/HCPCS: 99214

== ENCOUNTER → 2024-09-15 14:00 | Outpatient (BNVA) | payer OTHER, SELFPAY | PROVIDERS: PCP Internal Medicine; Visit Provider Student in an Organized Health Care Education/Training Program | DX: E05.90 Thyrotoxicosis, unspecified without thyrotoxic crisis or storm (principal); F17.210 Nicotine dependence, cigarettes, uncomplicated | CPT/HCPCS: 99212 ==

== ENCOUNTER 2024-09-16 15:07 | Outpatient (REF) | payer OTHER, SELFPAY ==
--- NOTE | ~2024-09-16 | XR_ITS ---
EXAMINATION: XR CHEST CLINICAL INFORMATION: Cough. COMPARISON: Chest radiograph dated 07/24/2021. TECHNIQUE: 2 views of the chest were obtained. FINDINGS: The lungs are clear. The cardiomediastinal silhouette is normal in size. There is no pleural effusion or pneumothorax. No acute osseous abnormality. XR/XR chest 2V IMPRESSION: No acute cardiopulmonary findings. Electronically signed by: Bubba Morrow MD 09/17/2024 10:20 AM [facility]
[2024-09-16 16:59] LABS: Thyroid Stimulating Hormone 0.47 uIU/mL (0.32-4.0)
[2024-09-18 03:33] LABS: Triiodothyronine T3 Total 117 ng/dL (76-181)
[2024-09-20 21:08] LABS: Thyrotropin Receptor Antibody <1.00 IU/L (<=2.00)
[2024-09-21 09:54] LABS: Thyroid Peroxidase Antibodies 1 IU/mL (<9)
[2024-09-21 15:53] LABS: Metanephrine, Free 58 pg/mL (<=57); Normetanephrines, Free 186 pg/mL (<=148); Total Metanephrine, Free 244 pg/mL (<=205)
[2024-09-23 16:03] LABS: Thyroid Stimulating Immunoglob <89 % baseline (<140)
== END 2024-09-16 15:08 | disposition home or self-care (01) ==
LOC: HO.XRAY 15:07
PROVIDERS: Absent Provider Student in an Organized Health Care Education/Training Program; PCP Internal Medicine; Visit Provider Internal Medicine
DX: E05.90 Thyrotoxicosis, unspecified without thyrotoxic crisis or storm (principal); R79.89 Other specified abnormal findings of blood chemistry; R05.9 Cough, unspecified; R00.2 Palpitations; E66.3 Overweight; K29.60 Other gastritis without bleeding; F41.1 Generalized anxiety disorder; R05.2 Subacute cough; Z72.0 Tobacco use
CPT/HCPCS: 36415; 71046; 83520; 83835; 84439; 84443; 84445; 84480; 86376; 99212

== ENCOUNTER 2024-09-16 15:07 | Outpatient (AMB) | payer MEDICAID, SELFPAY ==
[2024-09-16 15:10] VITALS: BP 130/84; PULSE 84; O2SAT 94; BMI 29.4
--- NOTE | 2024-09-16 15:10 | A.OFFPC_ITS ---
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 Patient was just recently seen by Endocrinology due to hyperthyroidism patient continues to complain of palpitations patient has erosive gastritis does smoke marijuana. Patient was recommended to get further blood work as well as ultrasound of the thyroid patient has subclinical hype rthyroidism treatment criteria of TSH of less than 0.1, 67 years old, osteoporosis or heart disease.. Patient has gone back to smoking both cigarettes and marijuana and discussed the need to stop this. Patient has been coughing noted daughter has been coughing and now she has been coughing for a done a couple of weeks. No fevers she did note coughing is a little bit better. As for palpitations patient has been feeling palpitations regularly and was concerned about this. Discussed about Holter [facility] Medical History (Updated 09/16/24 @ 15:47 by Tammy Lewis MD) Tobacco abuse GERD (gastroesophageal reflux disease) Abnormal TSH Hyperthyroidism Subclinical hyperthyroidism Well woman exam Dysuria Frequency of urination Diastasis recti Dental infection Family planning initiation Elevated plasma metanephrines Enterocolitis Nausea & vomiting Cannabis abuse with other cannabis-induced disorder Annual physical exam Hyperkalemia Pelvic pain Severe major depression Screen for STD (sexually transmitted disease) Abnormal uterine bleeding Depot contraception Status post therapeutic Status post drug-induced Nicotine dependence Constipation Iron deficiency anemia Muscle weakness Hospital discharge follow-up test positive Hemoptysis Surgical History History of esophagogastroduodenoscopy (EGD) Hx of section Family History Maternal Aunt Colon cancer Maternal Grandfather Heart attack Other Mental health disorder Social History Housing: Apartment Alcohol intake: never Patient Tobacco Use Status: Current someday Tobacco user Tobacco use type: Cigarette Cigarettes Per Day: 4 Years Smoked: stopped 04/2022 smokes marijuana, 4 cigarettes a week (11/2023) e-Cigarette/Vaping Use: Never Used Second Hand Smoke Exposure: Yes Substance Use Type: Marijuana service: No Current occupational status: employed Gender identity: Female Cognitive needs: No Hearing needs: No Vision needs: No Female Reproductive History Menstrual Age of Menarche: 13 Questionnaire Thrive Questionnaire Date Thrive assessed: 11/20/23 AUDIT C Alcohol Use Questionnaire (AUDIT-C) 2. How many drinks containing alcohol do you have on a typical day when you are drinking?: 1 or 2 3. How often do you have six or more drinks on one occasion?: Never Total Score: 0 LALY-7 AMB Questionnaire LALY-7 Date LALY - 7 assessed: 11/20/23 Source: Developed by Drs. Barak Beltran, Dee Mtz, Ben Saldivar and colleagues, with an educational michael from [employer]. Physical exam (Primary Care) Vital Signs: Last Vital Signs Pulse 84 09/16/24 15:10 BP 130/84 09/16/24 15:10 Pulse Ox 94 09/16/24 15:10 Oxygen Delivery Method Room Air 09/16/24 15:10 BMI result Body Mass Index 29.4 Tobacco/Smoking Status: Tobacco use Status Tobacco use date assessed 03/05/24 09/16/24 15:17 Patient Tobacco Use Status Current someday Tobacco 09/16/24 15:17 Tobacco use type Cigarette 09/16/24 15:17 e-Cigarette/Vaping Use Never Used 09/16/24 15:17 Thrive Assessment: Date of Thrive Assessment Date Thrive assessed 11/20/23 09/16/24 15:17 Const General: alert; No acute distress Eyes Conjunctivae: conjunctivae normal Resp Auscultation: clear to auscultation bilaterally Cardio Rate: regular rate Rhythm: regular rhythm GI Inspection: Yes normal to inspection Extrem General: Yes normal to inspection and No edema Coding Level of Care Code Est Pt Level 4 (06177) Diagnoses Subclinical hyperthyroidism E05.90 Palpitations R00.2 Overweight (BMI 25.0-29.9) E66.3 Erosive gastritis K29.60 Generalized anxiety disorder F41.1 Subacute cough R05.2 Cough type: subacute Tobacco abuse Z72.0 Assessment & Plan Assessment & Plan (1) Subclinical hyperthyroidism: Code(s): E05.90 - Thyrotoxicosis, unspecified without thyrotoxic crisis or storm Category: Medical Plan: Patient has seen endocrinology further workup being done but presently no criteria for treatment (2) Palpitations: Code(s): R00.2 - Palpitations Category: Medical Plan: EKG done were within normal limits. Because this has been happening, Holter is requested (3) Overweight (BMI 25.0-29.9): Code(s): E66.3 - Overweight Category: Medical Plan: Diet and exercise (4) Erosive gastritis: Code(s): K29.60 - Other gastritis without bleeding Category: Medical Plan: Avoid the foods that causes that usually spicy foods, tomato products, juices, coffee, soda and foods that your sensitive to. After eating do not lie down, allow 3-4 hours before in lie down. And keep the head of bed above 30 degrees to avoid the acid from going up. (5) Generalized anxiety disorder: Comment: [facility] Counseling Code(s): F41.1 - Generalized anxiety disorder Category: Medical Plan: Patient is advised to continue on counseling and therapy. (6) Cough: Code(s): R05.9 - Cough, unspecified Category: Medical Qualifiers: Cough type: subacute Qualified Code(s): R05.2 - Subacute cough Plan: Advised to get a chest x-ray, stop smoking! (7) Tobacco abuse: Comment: April 15/2022 Code(s): Z72.0 - Tobacco use Category: Medical Plan: Stop smoking! Both with and cigarettes. Orders: Orders ECG 3 day holter monitor Today R00.2 - Palpitations XR chest 2V Today R05.9 - Cough, unspecified Medications: New quetiapine (Seroquel) 25 mg PO BEDTIME 30 tabs 2RF F41.1 - Generalized anxiety disorder
== END 2024-09-16 16:04 | disposition home or self-care (01) ==
LOC: HO.HMCH 15:08
PROVIDERS: PCP Internal Medicine; Visit Provider Internal Medicine
DX: E05.90 Thyrotoxicosis, unspecified without thyrotoxic crisis or storm (principal); R00.2 Palpitations; E66.3 Overweight; K29.60 Other gastritis without bleeding; F41.1 Generalized anxiety disorder; R05.2 Subacute cough; Z72.0 Tobacco use

== ENCOUNTER 2025-01-25 10:36 | Outpatient (REF) | payer OTHER, SELFPAY ==
[2025-01-26 03:57] LABS: CT PCR NOT DETECTED (Not Detect.); NG PCR NOT DETECTED (Not Detect.)
[2025-01-26 11:18] LABS: Bacterial Vaginosis PCR NEGATIVE (Negative); Candida Group PCR NOT DETECTED (Not Detect); Candida glab krusei PCR NOT DETECTED (Not Detect); Trichomonas vaginalis PCR NOT DETECTED (Not Detect)
== END 2025-01-25 10:37 | disposition home or self-care (01) ==
LOC: HO.LAB 10:36
PROVIDERS: PCP Internal Medicine; Visit Provider Advanced Practice Midwife
DX: Z30.09 Encounter for other general counseling and advice on contraception (principal); Z30.42 Encounter for surveillance of injectable contraceptive; F41.1 Generalized anxiety disorder; N89.8 Other specified noninflammatory disorders of vagina; Z20.2 Contact with and (suspected) exposure to infections with a predominantly sexual mode of transmission
CPT/HCPCS: 81025; 81515; 87491; 87591; 99212; 99459

== ENCOUNTER 2025-01-25 10:36 | Outpatient (AMB) | payer OTHER, SELFPAY ==
--- NOTE | 2025-01-25 10:52 | MHC.OFFVIS ---
Vital Signs 01/25/25 10:53 Height 5 ft 6 in Weight 169 lb BMI 27.3 BP 116/68 Intake Visit Reasons: STD screen Nurse Staff Community Health Required: No Nurse Staff Community Health Services: Nurse Staff Community Health Present Information Interpreted: clinical only Long Term Care Pharmacist: Long Term Care Pharmacist Present Allergies codeine [CODEINE] Allergy (Unknown, Verified 01/25/25 10:53) NAUSEA & VOMITING Medication List - Last Reconciled 01/25/25 by Charlene Guadarrama CNM clonidine HCl 0.1 mg PO BEDTIME quetiapine (Seroquel) 25 mg PO BEDTIME Is last menstrual period known: Yes Last menstrual period: 01/03/25 HPI HPI STD screen: Details: Patient is here for an STD screen the man she is seeing turns out was living with is ex-girlfriend and baby and so she is concerned about what their doing and she is not with him. She is not having any particular symptoms. She voiced also concerned that she had sex with him on 01/15 her previous menses was 01/03/2025 and she is worried that she could be and wants a preg test. Also she voiced that she does want to get back on the Depo-Provera she said she had long discussions with Dr. Varela about the Depo and she understands the negative side effects in terms of weight gain and issues with long-term use and bone density and she has actually been losing weight. Also she voiced challenges with her anxiety and she says that sometimes she hears voices and she is pretty sure she has bipolar and wants to see a different psychiatrist she saw a therapist who referred her to a psychiatry but he put her on lots of meds that she thinks were too much. She says her primary Dr. Lewis is prescribing her just the minimal amount now for her and this is working, but she is going to go see in a different psychiatric /mental health care facility/office when she goes back to [facility] next week there is a walk-in site. [facility] Medical History Tobacco abuse GERD (gastroesophageal reflux disease) Abnormal TSH Hyperthyroidism Subclinical hyperthyroidism Well woman exam Dysuria Frequency of urination Diastasis recti Dental infection Family planning initiation Elevated plasma metanephrines Enterocolitis Nausea & vomiting Cannabis abuse with other cannabis-induced disorder Annual physical exam Hyperkalemia Pelvic pain Severe major depression Screen for STD (sexually transmitted disease) Abnormal uterine bleeding Depot contraception Status post therapeutic Status post drug-induced Nicotine dependence Constipation Iron deficiency anemia Muscle weakness Hospital discharge follow-up test positive Hemoptysis Surgical History History of esophagogastroduodenoscopy (EGD) Hx of section Family History Maternal Aunt Colon cancer Maternal Grandfather Heart attack Other Mental health disorder Social History Housing: Apartment Alcohol intake: never Patient Tobacco Use Status: Current someday Tobacco user Tobacco use type: Cigarette Cigarettes Per Day: 4 Years Smoked: stopped 04/2022 smokes marijuana, 4 cigarettes a week (11/2023) e-Cigarette/Vaping Use: Never Used Second Hand Smoke Exposure: Yes Substance Use Type: Marijuana service: No Current occupational status: employed Gender identity: Female Cognitive needs: No Hearing needs: No Vision needs: No Female Reproductive History Menstrual Age of Menarche: 13 Duration of menses: 3-5 days Date of last menstrual period: 01/03/25 control method: none Total pregnancies: 3 Full term: 1 Physical Exam Vital Signs: Last Vital Signs BP 116/68 01/25/25 10:53 BMI result Body Mass Index 27.3 Other: Vagina pink and moist normal-appearing discharge cervix pink and healthy. External Female Exam: normal external appearance and normal appearance of the urethra Speculum Exam - Vagina: normal appearance of the vagina and normal vaginal discharge Speculum Exam - Cervix: normal appearance of the cervix and Cervical os closed Extrem Other: Patient's left big toe has ecchymosis around the nail bed. Assessment & Plan Assessment & Plan (1) Generalized anxiety disorder: Comment: [facility]; 01/25/2025 patient states she is going to go to a walk-in center at [facility]. Code(s): F41.1 - Generalized anxiety disorder Category: Medical (2) Family planning initiation: Code(s): Z30.09 - Encounter for other general counseling and advice on contraception Category: Social Hx (3) Depo-Provera contraceptive status: Code(s): Z30.42 - Encounter for surveillance of injectable contraceptive Category: Social Hx (4) Screen for STD (sexually transmitted disease): Code(s): Z11.3 - Encounter for screening for infections with a predominantly sexual mode of transmission Category: Medical Plan Patient is here for an STD screen the man she is seeing turns out was living with is ex-girlfriend and baby and so she is concerned about what their doing and she is not with him. She is not having any particular symptoms. She voiced also concerned that she had sex with him on 01/15 her previous menses was 01/03/2025 and she is worried that she could be and wants a preg test. Also she voiced that she does want to get back on the Depo-Provera she said she had long discussions with Dr. Varela about the Depo and she understands the negative side effects in terms of weight gain and issues with long-term use and bone density and she has actually been losing weight. Also she voiced challenges with her anxiety and she says that sometimes she hears voices and she is pretty sure she has bipolar and wants to see a different psychiatrist she saw a therapist who referred her to a psychiatry but he put her on lots of meds that she thinks were too much. She says her primary Dr. Lewis is prescribing her just the minimal amount now for her and this is working, but she is going to go see in a different psychiatric /mental health care facility/office when she goes back to [facility] next week there is a walk-in site. At her request I am restarting the Depo which have been discontinued. Discussed the importance of watching her weight and not letting it balloon up , and also to make sure she gets weight-bearing exercise in her life consider dancing in her house.. She desires blood work for STIs so I am ordering those.. test was negative Patient to call the office at the start of her menses to schedule the Depo-Provera injection with the RN. Patient to consider Epsom salt soak for her toe. RTC for annual as scheduled. rtc for annuals labs depo w start of menses Patient Status Orders: Orders CT NG by PCR Today N89.8 - Other specified noninflammatory disorders of vagina, Z20.2 - Contact with and (suspected) exposure to infections with a predominantly sexual mode of transmission Bacterial Vaginosis Panel Today N89.8 - Other specified noninflammatory disorders of vagina Syphilis Screen Today F41.1 - Generalized anxiety disorder, Z11.3 - Encounter for screening for infections with a predominantly sexual mode of transmission, Z30.09 - Encounter for other general counseling and advice on contraception, Z30.42 - Encounter for surveillance of injectable contraceptive AMB HCG Urine Test Today Z32.02 - Encounter for test, result negative Hepatitis B Surface Antigen Today F41.1 - Generalized anxiety disorder, Z11.3 - Encounter for screening for infections with a predominantly sexual mode of transmission, Z30.09 - Encounter for other general counseling and advice on contraception, Z30.42 - Encounter for surveillance of injectable contraceptive Hepatitis C Antibody Today F41.1 - Generalized anxiety disorder, Z11.3 - Encounter for screening for infections with a predominantly sexual mode of transmission, Z30.09 - Encounter for other general counseling and advice on contraception, Z30.42 - Encounter for surveillance of injectable contraceptive HIV Ab/Ag Today F41.1 - Generalized anxiety disorder, Z11.3 - Encounter for screening for infections with a predominantly sexual mode of transmission, Z30.09 - Encounter for other general counseling and advice on contraception, Z30.42 - Encounter for surveillance of injectable contraceptive Medications: New medroxyprogesterone (Depo-Provera) Restart at the very beginning of next menses and then every 12 weeks, maintain calcium rich diet and weight-bearing exercise 150 mg IM Q12W 1 mL 4RF Coding Level of Care Code Est Pt Level 3 (11887) Diagnoses Generalized anxiety disorder F41.1 Family planning initiation Z30. Depo-Provera contraceptive status Z30.42 Screen for STD (sexually transmitted disease) Z11.3
[2025-01-25 10:53] VITALS: BP 116/68; BMI 27.3
== END 2025-01-25 11:52 | disposition home or self-care (01) ==
LOC: HO.HWSM 10:37
PROVIDERS: PCP Internal Medicine; Visit Provider Advanced Practice Midwife
DX: Z30.09 Encounter for other general counseling and advice on contraception (principal); Z30.42 Encounter for surveillance of injectable contraceptive; F41.1 Generalized anxiety disorder; Z32.02 Encounter for pregnancy test, result negative
CPT/HCPCS: 99213

== ENCOUNTER 2025-01-25 12:00 | Outpatient (REF) | payer OTHER, SELFPAY ==
[2025-01-25 13:55] LABS: HBsAGNum1 0.24 S/CO (0.00-0.99); HIV AB/AG Nonreactive (Nonreactive); Hepatitis B Surface Antigen Negative (Negative); Syphilis Screen Nonreactive (Nonreactive); ~Hepatitis C Antibody Nonreactive (Nonreactive)
== END 2025-01-25 12:01 | disposition home or self-care (01) ==
LOC: HO.HHCL 12:00
PROVIDERS: Visit Provider Advanced Practice Midwife
DX: Z30.42 Encounter for surveillance of injectable contraceptive (principal); Z30.09 Encounter for other general counseling and advice on contraception; F41.1 Generalized anxiety disorder; Z11.3 Encounter for screening for infections with a predominantly sexual mode of transmission
CPT/HCPCS: 36415; 86780; 86803; 87340; 87389

== ENCOUNTER 2025-03-04 11:44 | Outpatient (AMB) | payer OTHER, SELFPAY ==
[2025-03-04 11:50] VITALS: BMI 27.3
--- NOTE | 2025-03-04 11:50 | A.OFFVIS_ITS ---
Vital Signs 03/04/25 11:50 Height 5 ft 6 in Weight 169 lb BMI 27.3 Intake Visit Reasons: vaginal discharge Web Database Developer Required: No Information Interpreted: non-clinical & clinical Calender Wind Up Helper: Calender Wind Up Helper Present (Graciela LINDA) Accompanied by: Self / Same As Patient Allergies codeine [CODEINE] Allergy (Unknown, Verified 03/04/25 11:51) NAUSEA & VOMITING Is last menstrual period known: Yes Last menstrual period: 02/24/25 HPI Comments Details: The patient is presenting complaining of vaginal discharge associated with foul odor, no other associated symptoms, vaginal itching or any other complaint [facility] Medical History Tobacco abuse GERD (gastroesophageal reflux disease) Abnormal TSH Hyperthyroidism Subclinical hyperthyroidism Well woman exam Dysuria Frequency of urination Diastasis recti Dental infection Family planning initiation Elevated plasma metanephrines Enterocolitis Nausea & vomiting Cannabis abuse with other cannabis-induced disorder Annual physical exam Hyperkalemia Pelvic pain Severe major depression Screen for STD (sexually transmitted disease) Abnormal uterine bleeding Depot contraception Status post therapeutic Status post drug-induced Nicotine dependence Constipation Iron deficiency anemia Muscle weakness Hospital discharge follow-up test positive Hemoptysis Surgical History History of esophagogastroduodenoscopy (EGD) Hx of section Family History Maternal Aunt Colon cancer Maternal Grandfather Heart attack Other Mental health disorder Social History Housing: Apartment Alcohol intake: never Patient Tobacco Use Status: Current someday Tobacco user Tobacco use type: Cigarette Cigarettes Per Day: 4 Years Smoked: stopped 04/2022 smokes marijuana, 4 cigarettes a week (11/2023) e-Cigarette/Vaping Use: Never Used Second Hand Smoke Exposure: Yes Substance Use Type: Marijuana service: No Current occupational status: employed Gender identity: Female Cognitive needs: No Hearing needs: No Vision needs: No Female Reproductive History Menstrual Age of Menarche: 13 Date of last menstrual period: 02/24/25 Review of Systems Const All systems reviewed & are unremarkable except as noted in HPI and below Physical Exam Vital Signs: BMI result Body Mass Index 27.3 General: Yes no CVA tenderness External Female Exam: normal external appearance and normal appearance of the urethra Speculum Exam - Vagina: normal appearance of the vagina, normal palpation, no lesions and no masses Speculum Exam - Cervix: normal appearance of the cervix, normal palpation, no lesions, no masses and nontender Bimanual exam- vagina & uterus: normal bimanual exam, normal palpation, uterine size normal, normal palpation, uterine shape normal, No Cervical tenderness present and non-tender Bimanual Exam- Adnexa, other: normal adnexae Back/Spine/Pelvis Back: no CVA tenderness Assessment & Plan Assessment & Plan (1) Bacterial vaginosis: Code(s): N76.0 - Acute vaginitis; B96.89 - Other specified bacterial agents as the cause of diseases classified elsewhere Category: Medical Plan: GC and chlamydia cultures with BV panel taken. Per CDC recommendation, will screen for STI, HepBs Ag, HIV, RPR, Hep C Ab ordered. Will treat with Flagyl 500 mg p.o. b.i.d. x 7 days, Instructions given to the patient to refrain from sexual activity or to use condoms consistently and correctly during the BV treatment regimen, not to douch, it might increase the risk for relapse, and to call if symptoms persist or recur. Orders: Orders HIV Ab/Ag Today B96.89 - Other specified bacterial agents as the cause of diseases classified elsewhere, N76.0 - Acute vaginitis Hepatitis C Antibody Today B96.89 - Other specified bacterial agents as the cause of diseases classified elsewhere, N76.0 - Acute vaginitis Syphilis Screen Today 96.89 - Other specified bacterial agents as the cause of diseases classified elsewhere, N76.0 - Acute vaginitis Hepatitis B Surface Antigen Today 96.89 - Other specified bacterial agents as the cause of diseases classified elsewhere, N76.0 - Acute vaginitis Medications: New metronidazole 500 mg PO BID 7 days 14 tabs 0RF Coding Level of Care Code Est Pt Level 3 (92014) Diagnoses Bacterial vaginosis N76.0; B96.89
--- OUTSIDE RECORDS SUMMARY | 2025-03-04 12:38 | XMS_ITS | Clinical Summary ---
Author Organization [facility] Address [address] [place] [address] Phone Care Team Providers Care Mail Carrier Technician Name Role Phone Unavailable Primary Care Provider Unavailabl e Immunizations Immunization Administration Dates Next Due DTP 05/09/1997, 4,1992,07/10,1992 H1N1 09/05/2009 HPV, Quadrivalent 09/30/2008,05/30/2008,03/29/20 08 Hep B, ped/adol 02/07/1994,1992,1992 Hib (PRP-T) 05/09/1997, 4,1992,07/10,1992 IPV 05/09/1997, 4,1992,07/10,1992 Influenza Split 09/25/2010 Influenza, injectable, trivalent 08/10/2009 MMR 05/09/1997,02/07/1994 Meningococcal Conj (Menactra) MCV4P 08/13/2006 Td (adult) (MBL), 2 Lf tetan us toxoid, PF, adsorbed 01/31/2004 Tdap 03/29/2008 Family History Relation Name Status Comments Brother Alive Brother: Seizur e disorder, Alive and well,Jarcho-Harris Syndrome, Alive and well Father Alive Father: Alive a nd well, Disabled Mother Mother: Alive a nd well, Asthma, Asthma Other 1 grandfather: Di abetes mellitus Other 2 aunt: Obesity, Diabetes mellitus Other 3 aunt: Obesity, Diabetes mellitus Sister Alive Sister: Alive a nd well Social History Tobacco Use Types Packs/Day Years Used Date Smoking Tobacco: Never Assessed Comments Unknown Sex and Gender Information Value Date Recorded Sex Assigned at Not on file Legal Sex Female 4:37 PM EDT Gender Identity Not on file Sexual Orientation Not on file Last Filed Vital Signs Vital Sign Reading Time Taken Comments Blood Pressure 100/70 05/02/2011 12:00 AM EDT Pulse - - Temperature - - Respiratory Rate - - Oxygen Saturation - - Inhaled Oxygen Concentration - - Weight 73 kg (161 lb) 05/02/2011 12:00 AM EDT Height 162.6 cm (5' 4 ) 01/30/2011 12:00 AM EDT Body Mass Index 27.64 01/30/2011 12:00 AM EDT Plan of Treatment Health Maintenance Due Date Last Done Comments Varicella Vaccines (1 of 2 - 13+ 2-dose series) 02/24/2005 DTaP,Tdap,and Td Vaccines (7 - Td or Tdap) 03/29/2018 03/29/2008, 01/31/2004, 05/09/1997, Additional history exists Influenza Vaccines (#1) 2024 09/25/2010, 08/10 COVID-19 Vaccine ( season) 2024 Hepatitis B Vaccines Completed 02/07/1994, 1992, 1992 HIB Vaccines Completed 05/09/1997, 01/10, 1992, Additional history exists IPV Vaccines Completed 05/09/1997, 01/10, 1992, Additional history exists MMR Vaccines Completed 05/09/1997, 02/07/1994 Meningococcal Vaccine Aged Out 08/13/2006 No jalen jamie eligible based on patient's age to complete this topic HPV Vaccines Completed 09/30/2008, 05/11, 03/29/2008 Hepatitis A Vaccines Aged Out No long er eligible based on patient's age to complete this topic Men B Vaccine Aged Out No longer elig ible based on patient's age to complete this topic Pneumococcal Vaccine Aged Out No long er eligible based on patient's age to complete this topic Procedures * Due to [place] [email or web address] law, this organization might not be sharing sensitive test results. Procedure Name Priority Date/Time Associated Diagnosis Comments CHLAMYDIA AND GONORRHEA, AMPLIFIED Routine 09/26/2010 1:53 PM EST from Last 3 Months or Most Recently Relevant to Health Maintenance Results * Due to [place] [email or web address] law, this organization might not be sharing sensitive test results. * Chlamydia and Gonorrhoea, Amplified (09/26/2010 1:53 PM EST) URINE GC AMP PROBE NEGATIVE [facility] Comment: NO NEISSERIA GONORRHOEAE RNA DETECTED IN THIS PATIENT'S SAMPLE. ? (REFERENCE RANGE/NORMAL VALUE: NOT DETECTED) ? NOTE: THIS TEST USES SENIOR ENVIRONMENTAL PRACTICE LEADER MEDIATED AMPLIFICATION METHOD TO DETECT rRNA FROM C.TRACHOMATIS AND N.GONORRHOEAE. A NEGATIVE RESULT DOES NOT PRECLUDE INFECTION WITH C.TRACHOMATIS OR N.GONORRHOEAE BECAUSE RESULTS ARE DEPENDENT ON ADEQUATE SPECIMEN COLLECTION, ABSENCE OF INHIBITORS, AND SUFFICIENT rRNA TO BE DETECTED. THE APTIMA COMBO2 ASSAY IS NOT INTENDED FOR THE EVALUATION OF SUSPECTED SEXUAL ABUSE OR FOR OTHER MEDICO LEGAL INDICATIONS. IS TRUE FOR ALL NON CULTURE METHODS, A POSITIVE SPECIMEN OBTAINED FROM A PATIENT AFTER THERAPEUTIC TREATMENT CANNOT BE INTERPRETED INDICATING THE PRESENCE OF VIABLE C.TRACHOMATIS OR N.GONORRHOEAE. THERAPEUTIC FAILURE OR SUCCESS CANNOT BE DETERMINED WITH THE APTIMA COMBO2 ASSAY SINCE NUCLEIC ACID MAY PERSIST FOLLOWING APPROPRIATE ANTIMICROBIAL THERAPY. A NEGATIVE URINE RESULT FOR A PATIENT WHO IS CLINICALLY SUSPECTED OF HAVING A CHLAMYDIAL OR GONOCOCCAL INFECTION DOES NOT RULE OUT THE PRESENCE OF C.TRACHOMATIS OR N.GONORRHOEAE IN THE UROGENITAL TRACT. TESTING OF AN ENDOCERVICAL(FEMALE) OR URETHRAL(MALE) SPECIMEN IS RECOMMENDED IF THERE IS HIGH CLINICAL SUSPICION OF INFECTION. PRESERVCYT LIQUID PAP AND URINE SAMPLING ARE NOT DESIGNED TO REPLACE CERVICAL EXAMS AND ENDOCERVICAL SAMPLES FOR DIAGNOSIS OF FEMALE UROGENITAL INFECTIONS. PATIENTS MAY HAVE CERVICITIS, URETHRITIS, URINARY TRACT INFECTIONS, OR VAGINAL INFECTIONS DUE TO OTHER CAUSES OR CONCURRENT INFECTIONS WITH OTHER AGENTS. URINE CHLAMYDIA AMP PROBE NEGATIVE [facility] Comment: NO CHLAMYDIA TRACHOMATIS RNA DETECTED IN THIS PATIENT'S SAMPLE. ? (REFERENCE RANGE/NORMAL VALUE: NOT DETECTED) ? 09/26/2010 1:53 PM EST Narrative [facility] - 09/26/2010 1:53 PM EST URINE CHLAMYDIA GC AMP PROBE us Gela Hairston MD LAB MICROBIOLOGY - GENERAL ORDER MAMIE Final Result [facility] [address] [place] [address], [place] from Last 3 Months or Most Recently Relevant to Health Maintenance
--- OUTSIDE RECORDS SUMMARY | 2025-03-04 12:38 | XMS_ITS | Clinical Summary ---
Author Organization [facility] Address [address] [place] [address] Care Team Providers Care Analytics Intern Name Role Phone Unavailable Primary Care Provider Unavailabl e Social History Tobacco Use Types Packs/Day Years Used Date Smoking Tobacco: Never Assessed Comments Unknown Sex and Gender Information Value Date Recorded Sex Assigned at Not on file Legal Sex Female 8:57 PM EST Gender Identity Not on file Sexual Orientation Not on file Plan of Treatment Health Maintenance Due Date Last Done Comments DTaP,Tdap,and Td Vaccines (1 - Tdap) 02/24/2011 Hepatitis B Vaccines (1 of 3 - 19+ 3-dose series) 02/24/2011 Cervical Cancer Screening: P ap Smear 02/24/2013 Depression Screening 12/05/2023 HIV Screening 12/05/2023 Hepatitis C Screening 12/05/2023 Social Influencers of Health Screening 12/05/2023 COVID-19 Vaccine (2023-2 5 season) 2024 Influenza Vaccine (Season Ended) 2025 HIB Vaccines Aged Out No longer eligi ble based on patient's age to complete this topic HPV Vaccines Aged Out No longer eligi ble based on patient's age to complete this topic Hepatitis A Vaccines Aged Out No long er eligible based on patient's age to complete this topic IPV Vaccines Aged Out No longer eligi ble based on patient's age to complete this topic MMR Vaccines Aged Out No longer eligi ble based on patient's age to complete this topic Meningococcal ACWY Vaccine Aged Out N o longer eligible based on patient's age to complete this topic Meningococcal B Vaccine Aged Out No l onger eligible based on patient's age to complete this topic Pneumococcal Vaccine: Pediat rics (0 to 5 Years) and At-Risk Patients (6 to 64 Years) Aged Out No longer eligible b ased on patient's age to complete this topic RSV Immunization Patients Un sammie 20 months Aged Out No longer eligible b ased on patient's age to complete this topic Varicella Vaccines Aged Out No longer eligible based on patient's age to complete this topic
--- OUTSIDE RECORDS SUMMARY | 2025-03-04 12:38 | XMS_ITS | Encounter Summary ---
Author Organization [facility] Address [address] [place] [id number] Phone Care Team Providers Care Casino Cashier Name Role Phone Gela Hairston MD Primary Care Provider [phone] Encounter Details Date Type Department Care Team (Late st Contact Info) Description 06/26/2017 Conversion Encounter [facility] [place] [address] [place] [address] Social History Tobacco Use Types Packs/Day Years Used Date Smoking Tobacco: Never Assessed Comments Unknown Sex and Gender Information Value Date Recorded Sex Assigned at Not on file Legal Sex Female 4:37 PM EDT Gender Identity Not on file Sexual Orientation Not on file documented as of this encounter Plan of Treatment Not on file documented as of this encounter Visit Diagnoses Not on filedocumented in this encounter Care Teams Casino Cashier Relationship Specialty Start Date End Date Gela Hairston MD [address] [place] [address] PCP - General 06/20/17 04/16/23 documented as of this encounter
--- OUTSIDE RECORDS SUMMARY | 2025-03-04 12:38 | XMS_ITS | Encounter Summary ---
Author Organization [facility] Address [address] [place] [address] Phone Care Team Providers Care Bookbinding Machine Operator Name Role Phone Gela Hairtson MD Primary Care Provider [phone] Encounter Details Date Type Department Care Team (Late st Contact Info) Description 04/05/2015 [place]ation [facility] [place] [address] [place] [address] Family Medicine, Physician [address], [place] [address] Social History Tobacco Use Types Packs/Day Years [...] on filedocumented in this encounter Care Teams Bookbinding Machine Operator Relationship Specialty Start Date End Date Gela Hairston MD [address] [place] [address] [place] Ale[place] [address] PCP - General 06/20/17 04/16/23 documented as of this encounter
--- OUTSIDE RECORDS SUMMARY | 2025-03-04 12:38 | XMS_ITS | Encounter Summary ---
Author Organization [facility] Address [address] [place] [address] Phone Care Team Providers Care Gas Stove Servicer Helper Name Role Phone Gela Hairston MD Primary Care Provider [phone] Encounter Details Date Type Department Care Team (Late st Contact Info) Description 10/12/2010 Documentation [facility] [address] [place] [address] Family Medicine, Physician [address] [place], [place] [address] Social History Tobacco Use Types Packs/Day Years [...] on filedocumented in this encounter Care Teams Gas Stove Servicer Helper Relationship Specialty Start Date End Date Gela Hairston MD [address] [place] [address] [place] [address] PCP - General 06/20/17 04/16/23 documented as of this encounter
--- OUTSIDE RECORDS SUMMARY | 2025-03-04 12:38 | XMS_ITS | Encounter Summary ---
Author Organization [facility] Address [address] [place] [address] Phone Care Team Providers Care Industrial Relations Specialist Name Role Phone Gela Hairston MD Primary Care Provider [phone] Encounter Details Date Type Department Care Team (Late st Contact Info) Description 05/03/2011 Documentation [facility] [address] [place] [address] Family Medicine, Physician [address] [place], [place] [address] Social History Tobacco Use Types Packs/Day Years [...] on filedocumented in this encounter Care Teams Industrial Relations Specialist Relationship Specialty Start Date End Date Gela Hairston MD [address] [place] [address] [place] [address] PCP - General 06/20/17 04/16/23 documented as of this encounter
--- OUTSIDE RECORDS SUMMARY | 2025-03-04 12:38 | XMS_ITS | Encounter Summary ---
Author Organization [facility] Address [address] [place] [address] Phone Care Team Providers Care Ad Copy Writer Name Role Phone Gela Hairston MD Primary Care Provider [phone] Encounter Details Date Type Department Care Team (Late st Contact Info) Description 06/15/2015 Documentation [facility] [place] [address] [place] [address] Family Medicine, Physician [address] [place], [place] [address] Social History Tobacco Use Types Packs/Day Years [...] on filedocumented in this encounter Care Teams Ad Copy Writer Relationship Specialty Start Date End Date Gela Hairston MD [address] [place] [address] [place] [address] PCP - General 06/20/17 04/16/23 documented as of this encounter
--- OUTSIDE RECORDS SUMMARY | 2025-03-04 12:38 | XMS_ITS | Encounter Summary ---
Author Organization [facility] Address [address] [place] [address] Phone Care Team Providers Care Customer Support Advisor Name Role Phone Gela Hairston MD Primary Care Provider [phone] Encounter Details Date Type Department Care Team (Late st Contact Info) Description 05/03/2011 Documentation [facility] [address] [place] [address] Family Medicine, Physician [address] [place], [place] [address] Social History Tobacco Use Types Packs/Day Years [...] on filedocumented in this encounter Care Teams Customer Support Advisor Relationship Specialty Start Date End Date Gela Hairston MD [address] [place] [address] [place] [address] PCP - General 06/20/17 04/16/23 documented as of this encounter
--- OUTSIDE RECORDS SUMMARY | 2025-03-04 12:38 | XMS_ITS | Encounter Summary ---
Author Organization [facility] Address [address] [place] [address] Phone Care Team Providers Care Fax Machine Repairer Name Role Phone Gela Hairston MD Primary Care Provider [phone] Encounter Details Date Type Department Care Team (Late st Contact Info) Description 06/01/2015 Documentation [facility] [place] [address] [place] [address] Family Medicine, Physician [address] [place], [place] [address] Social History Tobacco Use Types Packs/Day Years [...] on filedocumented in this encounter Care Teams Fax Machine Repairer Relationship Specialty Start Date End Date Gela Hairston MD [address] [place] [address] [place] [address] PCP - General 06/20/17 04/16/23 documented as of this encounter
== END 2025-03-04 12:25 | disposition home or self-care (01) ==
LOC: HO.HWS 11:44
PROVIDERS: PCP Internal Medicine; Visit Provider Obstetrics & Gynecology
DX: N76.0 Acute vaginitis (principal); B96.89 Other specified bacterial agents as the cause of diseases classified elsewhere
CPT/HCPCS: 99213

== ENCOUNTER 2025-03-04 11:44 | Outpatient (REF) | payer OTHER, SELFPAY ==
--- OUTSIDE RECORDS SUMMARY | 2025-03-04 13:09 | XMS_ITS | Encounter Summary ---
Author Organization [facility] Address [address] [place] [address] Phone Care Team Providers Care High School Agriculture Teacher Name Role Phone Gela Hairston MD Primary Care Provider [phone] Encounter Details Date Type Department Care Team (Late st Contact Info) Description 06/26/2017 Conversion Encounter [facility] [place] [address] [place] [address] Social History Tobacco Use Types Packs/Day Years [...] on filedocumented in this encounter Care Teams High School Agriculture Teacher Relationship Specialty Start Date End Date Gela Hairston MD [address] [place] [address] PCP - General 06/20/17 04/16/23 documented as of this encounter
--- OUTSIDE RECORDS SUMMARY | 2025-03-04 13:09 | XMS_ITS | Encounter Summary ---
Author Organization [facility] Address [address] [place] [address] Phone Care Team Providers Care Refrigerating Technician Name Role Phone Gela Hairston MD Primary Care Provider [phone] Encounter Details Date Type Department Care Team (Late st Contact Info) Description 06/01/2015 Documentation [facility] [place] [address] [place] [address] Family Medicine, Physician [address] [place], [place] [address] Social History Tobacco Use Types Packs/Day Years [...] on filedocumented in this encounter Care Teams Refrigerating Technician Relationship Specialty Start Date End Date Gela Hairston MD [address] [place] [address] [place] [address] PCP - General 06/20/17 04/16/23 documented as of this encounter
--- OUTSIDE RECORDS SUMMARY | 2025-03-04 13:09 | XMS_ITS | Encounter Summary ---
Author Organization [facility] Address [address] [place] [address] Phone Care Team Providers Care Instructor Traffic Safety Name Role Phone Gela Hairston MD Primary Care Provider [phone] Encounter Details Date Type Department Care Team (Late st Contact Info) Description 05/03/2011 Documentation [facility] [address] [place] [address] Family Medicine, Physician [address] [place], [place] [address] Social History Tobacco Use Types Packs/Day Years [...] on filedocumented in this encounter Care Teams Instructor Traffic Safety Relationship Specialty Start Date End Date Gela Hairston MD [address] [place] [address] [place] [address] PCP - General 06/20/17 04/16/23 documented as of this encounter
--- OUTSIDE RECORDS SUMMARY | 2025-03-04 13:09 | XMS_ITS | Encounter Summary ---
Author Organization [facility] Address [address] [place] [address] Phone Care Team Providers Care Precision Lens Grinder Name Role Phone Gela Hairston MD Primary Care Provider [phone] Encounter Details Date Type Department Care Team (Late st Contact Info) Description 06/15/2015 Documentation [facility] [place] [address] [place] [address] Family Medicine, Physician [address] [place], [place] [address] Social History Tobacco Use Types Packs/Day Years [...] on filedocumented in this encounter Care Teams Precision Lens Grinder Relationship Specialty Start Date End Date Gela Hairston MD [address] [place] [address] [place] [address] PCP - General 06/20/17 04/16/23 documented as of this encounter
--- OUTSIDE RECORDS SUMMARY | 2025-03-04 13:09 | XMS_ITS | Encounter Summary ---
Author Organization [facility] Address [address] [place] [address] Phone Care Team Providers Care Internist Name Role Phone Gela Hairston MD Primary Care Provider [phone] Encounter Details Date Type Department Care Team (Late st Contact Info) Description 10/12/2010 Documentation [facility] [address] [place] [address] Family Medicine, Physician [address] [place], [place] [address] Social History Tobacco Use Types Packs/Day Years [...] on filedocumented in this encounter Care Teams Internist Relationship Specialty Start Date End Date Gela Hairston MD [address] [place] [address] [place] [address] PCP - General 06/20/17 04/16/23 documented as of this encounter
--- OUTSIDE RECORDS SUMMARY | 2025-03-04 13:09 | XMS_ITS | Encounter Summary ---
Author Organization [facility] Address [address] [place] [address] Phone Care Team Providers Care Senior Project Architect Name Role Phone Gela Hairston MD Primary Care Provider [phone] Encounter Details Date Type Department Care Team (Late st Contact Info) Description 04/05/2015 [place]ation [facility] [place] [address] [place] [address] Family Medicine, Physician [address] [place], [place] [address] Social History Tobacco Use Types Packs/Day Years [...] on filedocumented in this encounter Care Teams Senior Project Architect Relationship Specialty Start Date End Date Gela Hairston MD [address] [place] [address] [place] [address] PCP - General 06/20/17 04/16/23 documented as of this encounter
--- OUTSIDE RECORDS SUMMARY | 2025-03-04 13:09 | XMS_ITS | Encounter Summary ---
Author Organization [facility] Address [address] [place] [address] Phone Care Team Providers Care Digital Analytics Manager Name Role Phone Gela Hairston MD Primary Care Provider [phone] Encounter Details Date Type Department Care Team (Late st Contact Info) Description 05/03/2011 Documentation [facility] [address] [place] [address] Family Medicine, Physician [address] [place], [place] [address] Social History Tobacco Use Types Packs/Day Years [...] on filedocumented in this encounter Care Teams Digital Analytics Manager Relationship Specialty Start Date End Date Gela Hairston MD [address] [place] [address] [place] [address] PCP - General 06/20/17 04/16/23 documented as of this encounter
--- OUTSIDE RECORDS SUMMARY | 2025-03-04 13:09 | XMS_ITS | Clinical Summary ---
Author Organization [facility] Address [address] [place] [address] Phone Care Team Providers Care Sample Steamer Name Role Phone Unavailable Primary Care Provider [...] complete this topic Procedures * Due to [place] [employer] law, this organization might not be sharing sensitive test results. Procedure Name Priority Date/Time Associated Diagnosis Comments CHLAMYDIA AND GONORRHEA, AMPLIFIED Routine 09/26/2010 1:53 PM EST from Last 3 Months or Most Recently Relevant to Health Maintenance Results * Due to [place] [employer] law, this organization might not be sharing sensitive test results. * Chlamydia and Gonorrhoea, Amplified (09/26/2010 1:53 PM EST) URINE GC AMP PROBE NEGATIVE [facility] Comment: NO NEISSERIA GONORRHOEAE RNA DETECTED IN THIS PATIENT'S SAMPLE. ? (REFERENCE RANGE/NORMAL VALUE: NOT DETECTED) ? NOTE: THIS TEST USES STATION MASTER MEDIATED AMPLIFICATION METHOD TO DETECT rRNA FROM [...] OTHER AGENTS. URINE CHLAMYDIA AMP PROBE NEGATIVE [facility] Comment: NO CHLAMYDIA TRACHOMATIS RNA DETECTED IN THIS PATIENT'S SAMPLE. ? (REFERENCE RANGE/NORMAL VALUE: NOT DETECTED) ? 09/26/2010 1:53 PM EST Narrative [facility] - 09/26/2010 1:53 PM EST URINE CHLAMYDIA GC AMP PROBE us Gela Hairston MD LAB MICROBIOLOGY - GENERAL ORDER MAMIE Final Result [facility] [address] [place] [address], [place] from Last 3 Months or Most Recently Relevant to Health Maintenance
--- OUTSIDE RECORDS SUMMARY | 2025-03-04 13:09 | XMS_ITS | Clinical Summary ---
Author Organization [facility] Address [address] [place] [address] Care Team Providers Care Cultural Centre Manager Name Role Phone Unavailable Primary Care Provider [...]
[2025-03-04 13:56] LABS: HBsAGNum1 0.37 S/CO (0.00-0.99); HIV AB/AG Nonreactive (Nonreactive); HIV Num 1 0.09 S/CO (0.00-0.99); Hepatitis B Surface Antigen Negative (Negative); Syphilis Screen Nonreactive (Nonreactive); ~HepC Num1 0.08 S/CO (0.00-0.79); ~Hepatitis C Antibody Nonreactive (Nonreactive)
[2025-03-04 18:15] LABS: Bacterial Vaginosis PCR POSITIVE (Negative); Candida Group PCR NOT DETECTED (Not Detect); Candida glab krusei PCR NOT DETECTED (Not Detect); Trichomonas vaginalis PCR NOT DETECTED (Not Detect)
[2025-03-05 05:29] LABS: CT PCR NOT DETECTED (Not Detect.); NG PCR NOT DETECTED (Not Detect.)
== END 2025-03-04 11:45 | disposition home or self-care (01) ==
LOC: HO.LAB 11:44
PROVIDERS: PCP Internal Medicine; Visit Provider Obstetrics & Gynecology
DX: N76.0 Acute vaginitis (principal); B96.89 Other specified bacterial agents as the cause of diseases classified elsewhere; Z11.3 Encounter for screening for infections with a predominantly sexual mode of transmission
CPT/HCPCS: 81515; 86780; 86803; 87340; 87389; 87491; 87591; 99212

== ENCOUNTER 2025-04-26 13:56 | Outpatient (REF) | payer OTHER, SELFPAY ==
[2025-04-26 18:10] LABS: Bacterial Vaginosis PCR NEGATIVE (Negative); Candida Group PCR DETECTED (Not Detect); Candida glab krusei PCR DETECTED (Not Detect); Trichomonas vaginalis PCR NOT DETECTED (Not Detect)
[2025-04-26 18:43] LABS: CT PCR NOT DETECTED (Not Detect.); NG PCR NOT DETECTED (Not Detect.)
[2025-04-27 02:52] LABS: Syphilis Screen Nonreactive (Nonreactive)
[2025-04-27 06:05] LABS: HBsAGNum1 0.33 S/CO (0.00-0.99); HIV AB/AG Nonreactive (Nonreactive); HIV Num 1 0.08 S/CO (0.00-0.99); Hepatitis B Surface Antigen Negative (Negative); ~Hepatitis C Antibody Nonreactive (Nonreactive)
== END 2025-04-26 13:57 | disposition home or self-care (01) ==
LOC: HO.LAB 13:56
PROVIDERS: PCP Internal Medicine; Visit Provider Obstetrics & Gynecology
DX: Z30.430 Encounter for insertion of intrauterine contraceptive device (principal); Z20.2 Contact with and (suspected) exposure to infections with a predominantly sexual mode of transmission
CPT/HCPCS: 58300; 81025; 81515; 86780; 86803; 87340; 87389; 87491; 87591; 99212; J7298

== ENCOUNTER 2025-04-26 13:56 | Outpatient (AMB) | payer OTHER, SELFPAY ==
--- NOTE | 2025-04-26 13:57 | A.OFFVIS_ITS ---
Vital Signs 04/26/25 14:02 Height 5 ft 6 in Weight 150 lb BMI 24.2 BP 126/80 Intake Visit Reasons: consult for depo per Dr. Varela Piece Dyeing Machine Tender: Piece Dyeing Machine Tender Present (Thuy) Accompanied by: Self / Same As Patient Allergies codeine [CODEINE] Allergy (Unknown, Verified 04/26/25 14:03) NAUSEA & VOMITING HPI Comments Details: Presenting to discuss different options of control. The patient was on Depo-Provera was worse discontinued because of weight gain. LMP was 5 days ago Not currently sexually active has not had unprotected intercourse since 03/09/2025 In addition the patient is interested in STD screen [facility] Medical History Tobacco abuse GERD (gastroesophageal reflux disease) Abnormal TSH Hyperthyroidism Subclinical hyperthyroidism Well woman exam Dysuria Frequency of urination Diastasis recti Dental infection Family planning initiation Elevated plasma metanephrines Enterocolitis Nausea & vomiting Cannabis abuse with other cannabis-induced disorder Annual physical exam Hyperkalemia Pelvic pain Severe major depression Screen for STD (sexually transmitted disease) Abnormal uterine bleeding Depot contraception Status post therapeutic Status post drug-induced Nicotine dependence Constipation Iron deficiency anemia Muscle weakness Hospital discharge follow-up test positive Hemoptysis Surgical History History of esophagogastroduodenoscopy (EGD) Hx of section Family History Maternal Aunt Colon cancer Maternal Grandfather Heart attack Other Mental health disorder Social History Housing: Apartment Alcohol intake: never Patient Tobacco Use Status: Current someday Tobacco user Tobacco use type: Cigarette Cigarettes Per Day: 4 Years Smoked: stopped 04/2022 smokes marijuana, 4 cigarettes a week (11/2023) e-Cigarette/Vaping Use: Never Used Second Hand Smoke Exposure: Yes Substance Use Type: Marijuana service: No Current occupational status: employed Gender identity: Female Cognitive needs: No Hearing needs: No Vision needs: No Female Reproductive History Menstrual Age of Menarche: 13 Date of last menstrual period: 04/21/25 control method: none Review of Systems Const All systems reviewed & are unremarkable except as noted in HPI and below Reports as per HPI and Reports no additional complaints GI Reports no additional complaints Reports no additional complaints Physical Exam Vital Signs: Last Vital Signs BP 126/80 04/26/25 14:02 BMI result Body Mass Index 24.2 Office Procedures IUD Insert/Removal Details Details: The patient is having Mirena IUD insertion Urine test was done in the office and was negative; All the contraindications were excluded. The following possible complications were discussed with the patient: Intrauterine , Ectopic , Sepsis, Pelvic Infection, Irregular Bleeding and Amenorrhea, Perforation, Expulsion, Ovarian Cysts, Breast Cancer, The following adverse effects were discussed with the patient: alteration of menstrual bleeding pattern, including: unscheduled uterine bleeding decreased uterine bleeding increased scheduled uterine bleeding female genital tract bleeding ,amenorrhea , genital discharge , vulvovaginitis , breast pain , benign ovarian cyst and associated complications , dysmenorrhea , Gastrointestinal disorders abdominal/pelvic pain, headache/migraine , back pain , acne , depression Alternative options were discussed with the patient including but not limited: control pills, patch, NuvaRing, Depo-medroxyprogesterone acetate, Nexplanon, copper IUD, sterilization, vasectomy, others The procedure was explained in detail to patient , at the end patient signed the informed consent obtained. A no touch technique was used throughout the procedure. A speculum was placed into vagina and cervix was cleaned with betadine). A tenaculum was placed. A plastic sound was advanced through the external and internal os until it reached the fundus of the uterus, the depth was 8 cm. The sound was then withdrawn. The IUD was loaded in a sterile manner and advanced into position. The string was visualized and cut to 3 cm. Tenaculum site hemostatic. All instruments removed from vagina. Patient tolerated the procedure well. NO complications were noted. Patient was instructed to call for fever over 100.4, significant pain unrelieved by Motrin, IUD expulsion, heavy bleeding, or abnormal discharge. In addition, the following clinical considerations were discussed with the patient to call for removal: A stroke or heart attack ,Very severe or migraine headaches ,Unexplained fever ,Yellowing of the skin or whites of the eyes, as these may be signs of serious liver problems , or suspected , Pelvic pain or pain during sex ,HIV positive seroconversion in herself or her partner , Possible exposure to sexually transmitted infections Unusual vaginal discharge or genital sores , severe vaginal bleeding or bleeding that lasts a long time, or if she misses a menstrual period, Inability to feel Mirena's threads Counseled the patient that the IUD does not protect against STI's, recommended use of condoms for the first 7 days post insertion and explained to the patient that condoms are recommended for patients at risk for sexually transmitted infections. Informed the patient that Mirena IUD is FDA approved for 8 years for contraception for 5 years for the treatment of heavy menses Instructed the patient to schedule a Follow up appointment in 4 to 6 weeks following insertion. This note was generated with a voice recognition program. Some errors may have been overlooked during the review of this note. Sometimes these errors may affect the content or meaning of a given sentence. [id number] Insertion Procedure code (CPT) selection complete Office Meds Mirena 21 mcg/24 hr (up to 8 years) 52 mg intrauterine device Performing Provider: Milad Varela MD Performing Location: [facility] [place] [facility] Documented (not given) by: Milad Varela MD on 04/26/25 14:37 Dose Route Admin Location Dispensed Lot Number Expiration Date [facility] Treater 1 device intrauterine ea Results AMB Test Urine AMB Test Urine Negative Last Edit by Graciela Tolentino CMA on 14:06 Results Reviewed Results Reviewed: Laboratory Last Values [facility] Clinic Negative 04/26/25 14:06 Assessment & Plan Assessment & Plan (1) Family planning initiation: Code(s): Z30.09 - Encounter for other general counseling and advice on contraception Category: Social Hx Plan: Urine test done in the office was negative. Discussed with the patient the different options of control including control pills/Nuvaring, DMPA, different types of IUD ?s, sterilization. All the pros, cons, risks and benefits of each were discussed with the patient. The patient decided to go ahead with IUD, so a more detailed discussion was carried on including types (Progesterone, Copper), mechanism of action, risks (infection, uterine perforation, failure with ectopic , septic AB, dysmenorrhea with Paraguard, others) benefits (efficient contraceptive method, hypo menorrhea with Progesterone IUD, others) , the patient is admitted to proceed with the Mirena IUD. GC/CG were taken and Mirena IUD inserted, see procedure note. Instructions given the patient to use backup method for control for the 1st 2 weeks (2) Screen for STD (sexually transmitted disease): Code(s): Z11.3 - Encounter for screening for infections with a predominantly sexual mode of transmission Category: Medical Plan: STD screening tests done includes: BV panel for trichomonas, GC/CT will send patient for serology std screening for HIV, RPR, Hep b s Ag, HepC Ab. Instructions given the patient to schedule a follow-up appointment for repeat serology screen in 6 months for possible false negatives. Orders: Orders AMB HCG Urine Test Today Z32.02 - Encounter for test, result negative AMB IUD Insertion/Removal - Practice Supplied Today Z30.09 - Encounter for other general counseling and advice on contraception Syphilis Screen Today Z20.2 - Contact with and (suspected) exposure to infections with a predominantly sexual mode of transmission Hepatitis B Surface Antigen Today Z20.2 - Contact with and (suspected) exposure to infections with a predominantly sexual mode of transmission CT NG by PCR Today Z11.3 - Encounter for screening for infections with a predominantly sexual mode of transmission, Z30.09 - Encounter for other general counseling and advice on contraception Bacterial Vaginosis Panel Today Z11.3 - Encounter for screening for infections with a predominantly sexual mode of transmission, Z30.09 - Encounter for other general counseling and advice on contraception HIV Ab/Ag Today Z20.2 - Contact with and (suspected) exposure to infections with a predominantly sexual mode of transmission Hepatitis C Antibody Today Z20.2 - Contact with and (suspected) exposure to infections with a predominantly sexual mode of transmission Medications: New Mirena (levonorgestrel) 1 device intrauterine ONCE 1 ea 0RF IUD insertion NS Z30.09 - Encounter for other general counseling and advice on contraception Coding Level of Care Code Est Pt Level 3 (39443) Procedure Only Diagnoses Family planning initiation Z30.09 Screen for STD (sexually transmitted disease) Z11.3 CPT Codes Details - CPT: 37519-AOU Insertion ([id number])
[2025-04-26 14:02] VITALS: BP 126/80; BMI 24.2
--- OUTSIDE RECORDS SUMMARY | 2025-04-26 16:01 | XMS_ITS | Encounter Summary ---
Author Organization [facility] Address [address] [place] [address] Phone Care Team Providers Care Temperature Logging Operator Name Role Phone Gela Hairston MD Primary Care Provider [phone] Encounter Details Date Type Department Care Team (Late st Contact Info) Description 05/03/2011 Documentation EM Family Medicine [address] [place] [address] Family Medicine, Physician [address], [place] [id number] Social History Tobacco Use Types Packs/Day Years [...] on filedocumented in this encounter Care Teams Temperature Logging Operator Relationship Specialty Start Date End Date Gela Hairston MD [address] [place] [address] BERNABE Aleman [id number] PCP - General 06/20/17 04/16/23 documented as of this encounter
== END 2025-04-26 14:42 | disposition home or self-care (01) ==
LOC: HO.HWS 13:56
PROVIDERS: PCP Internal Medicine; Visit Provider Obstetrics & Gynecology
DX: Z30.09 Encounter for other general counseling and advice on contraception (principal); Z32.02 Encounter for pregnancy test, result negative; Z30.430 Encounter for insertion of intrauterine contraceptive device
CPT/HCPCS: 58300; 99213

== ENCOUNTER 2025-04-29 14:45 | Outpatient (AMB) | payer OTHER, SELFPAY ==
--- OUTSIDE RECORDS SUMMARY | 2025-04-29 14:47 | XMS_ITS | Encounter Summary ---
Author Organization [facility] Address [address] [place] [address] Phone Care Team Providers Care Guide Excursion Name Role Phone Gela Hairston MD Primary Care Provider [phone] Encounter Details Date Type Department Care Team (Late st Contact Info) Description 05/03/2011 Documentation EM Family Medicine [address] [place] [address] Family Medicine, Physician [address], [place] [id number] Social History Tobacco Use Types Packs/Day Years [...] on filedocumented in this encounter Care Teams Guide Excursion Relationship Specialty Start Date End Date Gela Hairston MD [address] [place] [address] B[place]NABE Aleman [id number] PCP - General 06/20/17 04/16/23 documented as of this encounter
[2025-04-29 14:55] VITALS: BP 126/82; PULSE 78; RESP 18; TEMP 37.4; O2SAT 99; BMI 23.7
--- NOTE | 2025-04-29 14:55 | MHC.PC.OV ---
Vital Signs 04/29/25 14:55 Height 5 ft 6 in Weight 147 lb BMI 23.7 BP 126/82 Blood Pressure Location Lt brachial Respiration 18 Pulse 78 Pulse Source Pulse Oximeter Temp 99.4 F Temp Source Oral Pulse Oximetry (%) 99 Oxygen Delivery Method Room Air Intake Visit Reasons: Elbow Pain Meter/Relay Technician Required: No Accompanied by: Self / Same As Patient Allergies codeine (CODEINE) Allergy (Unknown, Verified 04/29/25 15:07) NAUSEA & VOMITING Medication List - Last Reconciled 04/29/25 by HARINDER Martinez clonidine HCl 0.1 mg PO BEDTIME quetiapine (Seroquel) 25 mg PO BEDTIME Tobacco use date assessed: 04/29/25 Dental Screening Dental Screen Date: 04/29/25 Did you have a dental visit in the last 12 months?: Yes Did you have a dental problem in the last 6 months where you did not have access to dental care?: No Was dental information given to patient?: Patient has dentist HPI Elbow Pain HPI Details The patient is a 35-year-old female presenting with musculoskeletal pain and neurological symptoms in the left arm. The musculoskeletal pain began approximately a week and a half ago following a workout involving pulling a bar down with 50 pounds of weight. The patient initially did not feel pain but noticed it after taking a shower. The pain has since receded from the upper back to the middle back, with the middle back currently experiencing significant discomfort. The patient has been managing the pain with heat, Motrin, and Tylenol, and has rested from the gym for a week. Despite these interventions, the pain persists, and the patient is concerned about a possible strain or tear. Neurological symptoms include decreased sensation and tingling in the right arm, which the patient describes as feeling tingly and numb. The patient reports bruising on the right arm and is concerned about circulation issues. The patient has a history of using clonidine and Seroquel, and has had a negative experience with gabapentin at a high dose in the past, leading to withdrawal symptoms. The patient has been trying to tone up after losing weight from 196 pounds and has been engaging in physical activity to manage loose skin. [facility] Medical History Tobacco abuse GERD (gastroesophageal reflux disease) Abnormal TSH Hyperthyroidism Subclinical hyperthyroidism Well woman exam Dysuria Frequency of urination Diastasis recti Dental infection Family planning initiation Elevated plasma metanephrines Enterocolitis Nausea & vomiting Cannabis abuse with other cannabis-induced disorder Annual physical exam Hyperkalemia Pelvic pain Severe major depression Screen for STD (sexually transmitted disease) Abnormal uterine bleeding Depot contraception Status post therapeutic Status post drug-induced Nicotine dependence Constipation Iron deficiency anemia Muscle weakness Hospital discharge follow-up test positive Hemoptysis Surgical History History of esophagogastroduodenoscopy (EGD) Hx of section Family History Maternal Aunt Colon cancer Maternal Grandfather Heart attack Other Mental health disorder Social History Housing: Apartment Alcohol intake: never Patient Tobacco Use Status: Current someday Tobacco user Tobacco use type: Cigarette Cigarettes Per Day: 4 Years Smoked: stopped 04/2022- smokes marijuana daily, 4 cigarettes a week (11/2023) e-Cigarette/Vaping Use: Never Used Second Hand Smoke Exposure: Yes Substance Use Type: Marijuana service: No Current occupational status: employed Gender identity: Female Cognitive needs: No Hearing needs: No Vision needs: No Female Reproductive History Menstrual Age of Menarche: 13 Date of last menstrual period: 04/21/25 control method: progestin IUCD Questionnaire PHQ-9 Over the last 2 weeks, how often have you been bothered by any of the following problems? 1. Little interest or pleasure in doing things: more than half the days 2. Feeling down, depressed, or hopeless: not at all 3. Trouble falling or staying asleep, or sleeping too much: nearly every day 4. Feeling tired or having little energy: more than half the days 5. Poor appetite or overeating: not at all 6. Feeling bad about yourself - or that you are a failure or have let yourself or your family down: not at all 7. Trouble concentrating on things, such as reading the newspaper or watching television: more than half the days 8. Moving or speaking so slowly that other people could have noticed. Or the opposite - being so fidgety or restless that you have been moving around a lot more than usual: more than half the days 9. Thoughts that you would be better off or of hurting yourself in some way: not at all Total score: 11 Depression Screening Interpretation: Positive Depression Screening Done: Yes Source: Developed by Drs. Barak Beltran, Dee Mtz, Ben Saldivar and colleagues, with an educational michael from [employer]. Thrive Questionnaire Date Thrive assessed: 04/29/25 I am a: Patient What is your living situation today?: I choose not to answer this question Within the past 12 months, did the food you bought not last and you didn't have the money to get more?: I choose not to answer this question Within the past 12 months, did you worry whether your food would run out before you got money to buy more?: I choose not to answer this question Do you have trouble paying for medicines?: I choose not to answer this question Do you have trouble getting transportation to medical appointments?: I choose not to answer this question Do you have trouble paying your heating and electricity bill?: I choose not to answer this question Do you have trouble taking care of your child, family member or friend?: I choose not to answer this question Do you have trouble with day-to-day activities such as bathing, preparing meals, shopping, managing finances, etc.?: I choose not to answer this question Are you currently unemployed and looking for a job?: I choose not to answer this question Are you interested in more education?: I choose not to answer this question Please select the resources that you would like help with: Housing/Intermediate and Transportation Currently or been in a relationship where the following occur: I choose not to answer THRIVE Score: 0 AUDIT C Alcohol Use Questionnaire (AUDIT-C) 1. How often do you have a drink containing alcohol?: Never Total Score: 0 Score Reviewed/Action Taken: No LALY-7 AMB Questionnaire LALY-7 Date LALY - 7 assessed: 04/29/25 Feeling nervous, anxious, or on edge: 2 = More than half the days Not being able to stop or control worryin = More than half the days Worrying too much about different things: 2 = More than half the days Trouble relaxin = More than half the days Being so restless that it is hard to sit still: 2 = More than half the days Becoming easily annoyed or irritable: 2 = More than half the days Feeling afraid as if something awful might happen: 2 = More than half the days Total LALY-7 score (0-4 normal; 5-9 mild; 10-14 moderate; 15-21 severe): 14 Source: Developed by Drs. Barak Beltran, Dee Mtz, Ben Saldivar and colleagues, with an educational michael from [employer]. Review of Systems Const Reports no additional complaints Eyes Denies loss of vision ENT Denies vertigo and Denies dizziness Card Denies chest pain, Denies leg edema and Denies lightheadedness Resp Denies cough, Denies hemoptysis and Denies wheezing Musc Reports arthralgias (right shoulder), Denies joint swelling, Reports numbness (down right arm) and Reports tingling (down right arm) Neuro Denies Abnormal speech present, Denies behavioral changes, Denies vertigo, Denies dizziness, Denies loss of vision, Denies memory loss, Reports numbness (down right arm) and Reports tingling (down right arm) Psych Reports anxiety, Denies behavioral changes, Reports depression, Denies memory loss and Denies panic attacks Aller/Immun Denies wheezing Physical exam (Primary Care) Vital Signs: Last Vital Signs Temp 99.4 F 04/29/25 14:55 Pulse 78 04/29/25 14:55 Resp 18 04/29/25 14:55 BP 126/82 04/29/25 14:55 Pulse Ox 99 04/29/25 14:55 Oxygen Delivery Method Room Air 04/29/25 14:55 BMI result Body Mass Index 23.7 Tobacco/Smoking Status: Tobacco use Status Tobacco use date assessed 04/29/25 04/29/25 15:04 Patient Tobacco Use Status Current someday Tobacco 04/29/25 15:04 Tobacco use type Cigarette 04/29/25 15:04 e-Cigarette/Vaping Use Never Used 04/29/25 15:04 PHQ-9: PHQ-9 Score PHQ-9: Total score 11 04/29/25 15:18 Depression Screening Interpretation: Positive Thrive Assessment: Date of Thrive Assessment Date Thrive assessed 04/29/25 04/29/25 15:04 Currently or been in a relationship where the following occur: I choose not to answer Const General: healthy appearing, no acute distress, alert and awake Nutritional Appearance: well nourished Orientation/consciousness: oriented to person, oriented to place and oriented to time HENMT Ears: external ears normal General nose exam: Normal external nose present Eyes Conjunctivae: conjunctivae normal Sclerae: sclerae normal Pupils: Equal, round and reactive pupils present Neck Neck: Yes no lymphadenopathy and Yes no JVD Thyroid: Thyroid normal Carotids: no bruits Resp Effort & Inspection: normal respiratory effort and not tachypneic Auscultation: no crackles, no rales, no rhonchi and no wheezes Cardio Rate: regular rate Rhythm: regular rhythm Heart sounds: no murmurs and normal S1 and S2 Back/Spine/Pelvis Cervical Spine: No Cervical spine tenderness Thoracic/Lumbar Spine: No thoracic spinal tenderness Skin General skin exam: no rashes or lesions noted and dry skin Neuro General: oriented to person, oriented to place and oriented to time Cranial nerves: Yes Equal, round and reactive pupils present Speech: No Abnormal speech present Gait exam (Neuro): Normal gait present Motor exam (neuro): no tremor noted Extrem Right upper extremity: full ROM, normal capillary refill, shoulder/upper arm Details: tenderness (over the right trapezius muscle) and elbow/forearm Details: normal to inspection; no edema and joint enlargement noted Left upper extremity: full ROM Right lower extremity: full ROM; no edema Left lower extremity: full ROM; no edema Psych Mental Status: mental status grossly normal Speech and movement: Normal speech and movement present Affect: normal affect Attitude: cooperative Thought process: Normal thought process present Coding Level of Care Code Est Pt Level 3 (99370) Diagnoses Strain of right trapezius muscle, initial encounter S46.811A Encounter type: initial encounter Laterality: right Time Spent (min) 33 Assessment & Plan Assessment & Plan (1) Strain of trapezius muscle: Code(s): S46.819A - Strain of other muscles, fascia and tendons at shoulder and upper arm level, unspecified arm, initial encounter Category: Medical Qualifiers: Encounter type: initial encounter Laterality: right Qualified Code(s): S46.811A - Strain of other muscles, fascia and tendons at shoulder and upper arm level, right arm, initial encounter Plan: continue modified activity May use heat or cold compress alternatively Start methocarbamol 500mg q 8H PRN, gabapentin 100mg at hs ibuprofen 800mg q 8H prn follow up if symptoms are or not improving Medications: New methocarbamol 500 mg PO Q8H 30 tabs 1RF gabapentin 100 mg PO BEDTIME 30 caps 0RF ibuprofen 800 mg PO Q8H PRN 30 tabs 1RF pain Refilled quetiapine (Seroquel) 25 mg PO BEDTIME 30 tabs 2RF F41.1 - Generalized anxiety disorder clonidine HCl 0.1 mg PO BEDTIME 30 tabs 0RF F41.1 - Generalized anxiety disorder, G47.00 - Insomnia, unspecified
== END 2025-04-29 15:43 | disposition home or self-care (01) ==
LOC: HO.HMCH 14:45
PROVIDERS: PCP Internal Medicine
DX: S46.811A Strain of other muscles, fascia and tendons at shoulder and upper arm level, right arm, initial encounter (principal)

== ENCOUNTER → 2025-04-29 14:45 | Outpatient (BNVA) | payer OTHER, SELFPAY | PROVIDERS: PCP Internal Medicine | DX: S46.811A Strain of other muscles, fascia and tendons at shoulder and upper arm level, right arm, initial encounter (principal); F41.1 Generalized anxiety disorder; G47.00 Insomnia, unspecified; X58.XXXA Exposure to other specified factors, initial encounter; Y93.9 Activity, unspecified; Y92.9 Unspecified place or not applicable; Y99.9 Unspecified external cause status | CPT/HCPCS: 96127; 99212 ==

== ENCOUNTER 2025-05-27 14:04 | Outpatient (AMB) | payer OTHER, SELFPAY ==
--- OUTSIDE RECORDS SUMMARY | 2025-05-27 14:07 | XMS_ITS | Clinical Summary ---
Author Organization [facility] it[facility] Address [address] [place] [address] Care Team Providers Care Fee Clerk Name Role Phone Unavailable Primary Care Provider [...] Influencers of Health Screening 12/05/2023 COVID-19 Vaccine ( - 2023-2 5 season) 2024 Influenza Vaccine (#1) 2025 HIB Vaccines Aged Out No longer [...] 5 Years) and At-Risk Patients (6 to 49 Years) Aged Out No longer eligible b ased on patient's age to complete this topic RSV Immunization Patients Un sammie 20 months Aged Out No longer eligible b ased on patient's age to complete this topic Varicella Vaccines Aged Out No longer eligible based on patient's age to complete this topic
--- NOTE | 2025-05-27 14:11 | A.OFFPC_ITS ---
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 Required: No Accompanied by: Self / Same As Patient Allergies codeine (CODEINE) Allergy (Unknown, Verified 05/27/25 14:45) NAUSEA & VOMITING Medication List - Last Reconciled 05/27/25 by Charlee Verma PA-C clonidine HCl 0.1 mg PO BEDTIME gabapentin 100 mg PO BEDTIME ibuprofen 800 mg PO Q8H PRN methocarbamol 500 mg PO Q8H quetiapine (Seroquel) 25 mg PO BEDTIME Tobacco use date assessed: 04/29/25 Dental Screening Dental Screen Date: 05/27/25 Did you have a dental visit in the last 12 months?: Yes Did you have a dental problem in the last 6 months where you did not have access to dental care?: No Was dental information given to patient?: Patient has dentist HPI PE/Med refill HPI Details 35-year-old female with past medical his tory of generalized anxiety disorder, insomnia, vitamin-D deficiency, tobacco abuse last seen 04/2025 by nurse practitioner coming in for annual exam. Presenting for an annual wellness visit. The patient has a history of anxiety and PTSD, previously managed with therapy and medications, but currently not under any psychiatric care. The patient reports insomnia, which is managed with Seroquel, providing relief. The patient is attempting to quit smoking, currently smoking two cigarettes a day, and is interested in using nicotine patches to aid cessation. The patient experiences chronic diarrhea, described as watery stools, and has been advised to try a FODMAP diet to manage symptoms. pap smear: UTD with urogynecology physician Vaccines: UTD [facility] Medical History Encounter for Depo-Provera contraception Tobacco abuse GERD (gastroesophageal reflux disease) Abnormal TSH Hyperthyroidism Subclinical hyperthyroidism Well woman exam Dysuria Frequency of urination Diastasis recti Dental infection Family planning initiation Elevated plasma metanephrines Enterocolitis Nausea & vomiting Cannabis abuse with other cannabis-induced disorder Annual physical exam Hyperkalemia Pelvic pain Severe major depression Screen for STD (sexually transmitted disease) Abnormal uterine bleeding Depot contraception Status post therapeutic Status post drug-induced Nicotine dependence Constipation Iron deficiency anemia Muscle weakness Hospital discharge follow-up test positive Hemoptysis Surgical History History of esophagogastroduodenoscopy (EGD) Hx of section Family History Maternal Aunt Colon cancer Maternal Grandfather Heart attack Other Mental health disorder Social History Housing: Apartment Alcohol intake: never Patient Tobacco Use Status: Current someday Tobacco user Tobacco use type: Cigarette Cigarettes Per Day: 4 Years Smoked: stopped 04/2022- smokes marijuana daily, 4 cigarettes a week (11/2023) e-Cigarette/Vaping Use: Never Used Second Hand Smoke Exposure: Yes Substance Use Type: Marijuana service: No Current occupational status: employed Gender identity: Female Cognitive needs: No Hearing needs: No Vision needs: No Female Reproductive History Menstrual Age of Menarche: 13 Questionnaire PHQ-9 Over the last 2 weeks, how often have you been bothered by any of the following problems? 1. Little interest or pleasure in doing things: more than half the days 2. Feeling down, depressed, or hopeless: not at all 3. Trouble falling or staying asleep, or sleeping too much: nearly every day 4. Feeling tired or having little energy: more than half the days 5. Poor appetite or overeating: not at all 6. Feeling bad about yourself - or that you are a failure or have let yourself or your family down: not at all 7. Trouble concentrating on things, such as reading the newspaper or watching television: more than half the days 8. Moving or speaking so slowly that other people could have noticed. Or the opposite - being so fidgety or restless that you have been moving around a lot more than usual: more than half the days 9. Thoughts that you would be better off or of hurting yourself in some way: not at all Total score: 11 Depression Screening Interpretation: Positive Depression Screening Follow-up: Existing condition and Declines treatment Depression Screening Done: Yes Source: Developed by Drs. Barak Beltran, Dee B.Ben Huizar and colleagues, with an educational michael from [employer]. Thrive Questionnaire Date Thrive assessed: 05/27/25 I am a: Patient What is your living situation today?: I choose not to answer this question Within the past 12 months, did the food you bought not last and you didn't have the money to get more?: I choose not to answer this question Within the past 12 months, did you worry whether your food would run out before you got money to buy more?: I choose not to answer this question Do you have trouble paying for medicines?: I choose not to answer this question Do you have trouble getting transportation to medical appointments?: I choose not to answer this question Do you have trouble paying your heating and electricity bill?: I choose not to answer this question Do you have trouble taking care of your child, family member or friend?: I choose not to answer this question Do you have trouble with day-to-day activities such as bathing, preparing meals, shopping, managing finances, etc.?: I choose not to answer this question Are you currently unemployed and looking for a job?: I choose not to answer this question Are you interested in more education?: I choose not to answer this question Currently or been in a relationship where the following occur: I choose not to answer THRIVE Score: 0 LALY-7 AMB Questionnaire LALY-7 Date LALY - 7 assessed: 05/27/25 Feeling nervous, anxious, or on edge: 2 = More than half the days Not being able to stop or control worryin = More than half the days Worrying too much about different things: 2 = More than half the days Trouble relaxin = More than half the days Being so restless that it is hard to sit still: 2 = More than half the days Becoming easily annoyed or irritable: 2 = More than half the days Feeling afraid as if something awful might happen: 2 = More than half the days Total LALY-7 score (0-4 normal; 5-9 mild; 10-14 moderate; 15-21 severe): 14 Source: Developed by Drs. Barak Beltran, Ben Landon and colleagues, with an educational michael from [employer]. Review of Systems Const Denies body aches, Denies fatigue, Denies fever(s), Denies frequent falls, Denies headache(s) and Denies weakness Eyes Reports no additional complaints and Denies change in vision ENT Denies dysphagia, Denies dizziness, Denies facial pain, Denies headache(s), Denies nasal congestion and Denies odynophagia Card Denies chest pain, Denies syncope, Denies irregular heart rhythm, Denies leg edema, Denies lightheadedness and Denies dyspnea Resp Denies cough and Denies dyspnea GI Denies abdominal pain, Denies constipation, Denies dysphagia, Denies dyspepsia, Reports diarrhea, Denies nausea, Denies odynophagia and Denies vomiting Denies urinary frequency, Denies dysuria, Denies urinary hesitancy and Denies urinary urgency Musc Denies back pain and Denies myalgias Skin/Breast Reports system reviewed and no additional complaints, except as documented Neuro Denies dizziness, Denies syncope, Denies frequent falls, Denies headache(s) and Denies weakness Psych Reports no additional complaints Endo Denies fatigue Physical exam (Primary Care) Vital Signs: Last Vital Signs BP 114/72 05/27/25 14:14 BMI result Body Mass Index 24.0 Tobacco/Smoking Status: Tobacco use Status Tobacco use date assessed 04/29/25 05/27/25 14:16 Patient Tobacco Use Status Current someday Tobacco 05/27/25 14:16 Tobacco use type Cigarette 05/27/25 14:16 e-Cigarette/Vaping Use Never Used 05/27/25 14:16 PHQ-9: PHQ-9 Score PHQ-9: Total score 11 05/27/25 15:11 Depression Screening Interpretation: Positive Depression Screening Follow-up: Existing condition and Declines treatment Thrive Assessment: Date of Thrive Assessment Date Thrive assessed 05/27/25 05/27/25 14:16 Currently or been in a relationship where the following occur: I choose not to answer Const General: cooperative, healthy appearing, comfortable and no acute distress Orientation/consciousness: patient oriented x3 HENMT Head: Yes normocephalic Ears: hearing grossly normal bilaterally, external ears normal, TM's normal bilaterally and EAC's normal General nose exam: Normal external nose present Face and sinus: Yes normal facial exam and Yes sinuses nontender Mouth: Normal oral and palatal mucosa present and tongue normal Throat: Yes posterior oropharynx normal Eyes General: appearance normal, both eyes and all related structures Conjunctivae: conjunctivae normal Pupils: Equal, round and reactive pupils present EOM: EOMs intact bilaterally and No Nystagmus present Neck Neck: Yes normal visual inspection, Yes full ROM and Yes no lymphadenopathy Chest Chest palpation & inspection: normal inspection of the chest Resp Effort & Inspection: normal respiratory effort Auscultation: clear to auscultation bilaterally, no crackles, no rales, no rhonchi, no wheezes and breath sounds present Cardio Rate: regular rate Rhythm: regular rhythm Peripheral pulses: radial pulses present and dorsalis pedis present GI Inspection: Yes normal to inspection and No Abdominal wall edema Palpation (GI): Soft to palpation, not firm and nontender Auscultation: normal bowel sounds Rectal Exam - Female: deferred General: Yes no CVA tenderness Back/Spine/Pelvis Back: no CVA tenderness Skin General skin exam: no rashes or lesions noted Neuro General: patient oriented x3 Cranial nerves: Yes Equal, round and reactive pupils present, Yes Midline tongue present, Yes Ability to bilaterally elevate shoulders present and No Nystagmus present Gait exam (Neuro): Normal gait present Extrem General: Yes normal to inspection, Yes full ROM, No no pedal edema and No edema Psych Speech and movement: Normal speech and movement present Affect: normal affect Insight: Good insight present (Psych) Judgement: Good judgement present (Psych) Coding Level of Care Code Est Pt Prev Care 18-39y(84855) Diagnoses Annual physical exam Z00.00 Generalized anxiety disorder F41.1 Post-traumatic stress disorder F43.10 Blood pressure elevated without history of HTN R03.0 Overweight (BMI 25.0-29.9) E66.3 Tobacco abuse Z72.0 Subclinical hyperthyroidism E05.90 Vitamin D deficiency E55.9 Psychophysiological insomnia F51.04 Insomnia type: psychophysiologic Chronic diarrhea K52.9 Assessment & Plan Assessment & Plan (1) Annual physical exam: Code(s): Z00.00 - Encounter for general adult medical examination without abnormal findings Category: Medical Plan: Patient is up-to-date on all recommended routine screenings and vaccinations for her age. Ordered for updated blood work. Healthy diet and regular exercise is encouraged. (2) Generalized anxiety disorder: Code(s): F41.1 - Generalized anxiety disorder Category: Medical Plan: Few symptoms are well managed at this time without counseling or medication. (3) Post-traumatic stress disorder: Code(s): F43.10 - Post-traumatic stress disorder, unspecified Category: Medical Plan: See above (4) Blood pressure elevated without history of HTN: Code(s): R03.0 - Elevated blood-pressure reading, without diagnosis of hypertension Category: Medical Plan: Blood pressure well managed today. Avoid salt intake and encourage healthy diet and regular exercise. (5) Overweight (BMI 25.0-29.9): Code(s): E66.3 - Overweight Category: Medical Plan: Resolved (6) Tobacco abuse: Comment: April 15/2022 Code(s): Z72.0 - Tobacco use Category: Medical Plan: Smoking cigarettes and the use of tobacco can be harmful. We discussed the importance of stopping and options to aid in smoking cessation. NRT sent to pharmacy. (7) Subclinical hyperthyroidism: Code(s): E05.90 - Thyrotoxicosis, unspecified without thyrotoxic crisis or storm Category: Medical Plan: Continue to monitor blood work. (8) Vitamin D deficiency: Code(s): E55.9 - Vitamin D deficiency, unspecified Category: Medical Plan: Continue to monitor blood work. (9) Insomnia: Code(s): G47.00 - Insomnia, unspecified Category: Medical Qualifiers: Insomnia type: psychophysiologic Qualified Code(s): F51.04 - Psychophysiologic insomnia Plan: Currently on Seroquel and Clonidine and finds this beneficial. (10) Chronic diarrhea: Code(s): K52.9 - Noninfective gastroenteritis and colitis, unspecified Category: Medical Plan: For chronic diarrhea recommended fiber supplement and low FODMAP diet which has been discussed with the patient today and given resources. Plan The patient will continue using Seroquel for insomnia management, as it has been effective in providing relief. Nicotine patches have been prescribed to assist in smoking cessation, with the patient advised to start with a middle dose to avoid excessive nicotine intake. The patient is encouraged to follow a FODMAP diet to address chronic diarrhea, with the aim of identifying and eliminating dietary triggers. Blood work will be conducted to monitor cholesterol levels, given previous high readings, and to ensure overall health maintenance. This note was constructed using voice recognition software. While every effort has been made to ensure accuracy and development and planning engineer, still areas may have been included sometimes these areas may affect the content or meeting of the given symptoms. Total time spent caring for the patient today was 30 minutes. This includes time spent before the visit reviewing the chart, time spent during the visit, and time spent after the visit and documentation. Patient was informed and verbally consented to the use of an ambient scribe for clinic note documentation during this visit. Orders: Orders Complete Blood Count Auto Diff Today N93.9 - Abnormal uterine and vaginal bleeding, unspecified, Z00.00 - Encounter for general adult medical examination without abnormal findings Comprehensive Met. Panel Today E66.3 - Overweight, Z00.00 - Encounter for general adult medical examination without abnormal findings Vitamin B12 and Folate Today E66.3 - Overweight, Z13.21 - Encounter for screening for nutritional disorder Vitamin D 25-OH Total Today E66.3 - Overweight, Z00.00 - Encounter for general adult medical examination without abnormal findings Lipid Panel Today Z13.220 - Encounter for screening for lipoid disorders TSH reflex Free T4 Today E05.90 - Thyrotoxicosis, unspecified without thyrotoxic crisis or storm, Z00.00 - Encounter for general adult medical examination without abnormal findings Free T4 (Free Thyroxine) Today E05.90 - Thyrotoxicosis, unspecified without thyrotoxic crisis or storm, Z00.00 - Encounter for general adult medical examination without abnormal findings Medications: New nicotine 1 patch transdermal DAILY 28 ea 0RF
[2025-05-27 14:14] VITALS: BP 114/72; BMI 24.0
== END 2025-05-27 15:19 | disposition home or self-care (01) ==
LOC: HO.HMCH 14:05
PROVIDERS: PCP Internal Medicine
DX: Z00.00 Encounter for general adult medical examination without abnormal findings (principal); F41.1 Generalized anxiety disorder; F43.10 Post-traumatic stress disorder, unspecified; R03.0 Elevated blood-pressure reading, without diagnosis of hypertension; E66.3 Overweight; Z72.0 Tobacco use; E05.90 Thyrotoxicosis, unspecified without thyrotoxic crisis or storm; E55.9 Vitamin D deficiency, unspecified; F51.04 Psychophysiologic insomnia; K52.9 Noninfective gastroenteritis and colitis, unspecified

== ENCOUNTER → 2025-05-27 14:04 | Outpatient (BNVA) | payer OTHER, SELFPAY | PROVIDERS: PCP Internal Medicine | DX: Z00.00 Encounter for general adult medical examination without abnormal findings (principal); F41.1 Generalized anxiety disorder; F43.10 Post-traumatic stress disorder, unspecified; R03.0 Elevated blood-pressure reading, without diagnosis of hypertension; E05.90 Thyrotoxicosis, unspecified without thyrotoxic crisis or storm; E55.9 Vitamin D deficiency, unspecified; F51.04 Psychophysiologic insomnia; K52.9 Noninfective gastroenteritis and colitis, unspecified; E66.3 Overweight; Z68.24 Body mass index [BMI] 24.0-24.9, adult; Z79.899 Other long term (current) drug therapy; Z72.0 Tobacco use; Z13.31 Encounter for screening for depression; Z13.39 Encounter for screening examination for other mental health and behavioral disorders | CPT/HCPCS: 99395 ==

== ENCOUNTER 2025-06-09 10:54 | Outpatient (AMB) | payer OTHER, SELFPAY ==
--- NOTE | 2025-06-09 10:56 | MHC.OFFVIS ---
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 The patient has no complaints periods are normal, not painful, and flow is normal. [facility] Medical History Encounter for Depo-Provera contraception Tobacco abuse GERD (gastroesophageal reflux disease) Abnormal TSH Hyperthyroidism Subclinical hyperthyroidism Well woman exam Dysuria Frequency of urination Diastasis recti Dental infection Family planning initiation Elevated plasma metanephrines Enterocolitis Nausea & vomiting Cannabis abuse with other cannabis-induced disorder Annual physical exam Hyperkalemia Pelvic pain Severe major depression Screen for STD (sexually transmitted disease) Abnormal uterine bleeding Depot contraception Status post therapeutic Status post drug-induced Nicotine dependence Constipation Iron deficiency anemia Muscle weakness Hospital discharge follow-up test positive Hemoptysis Surgical History History of esophagogastroduodenoscopy (EGD) Hx of section Family History Maternal Aunt Colon cancer Maternal Grandfather Heart attack Other Mental health disorder Social History Housing: Apartment Alcohol intake: never Patient Tobacco Use Status: Current someday Tobacco user Tobacco use type: Cigarette Cigarettes Per Day: 4 Years Smoked: stopped 04/2022- smokes marijuana daily, 4 cigarettes a week (11/2023) e-Cigarette/Vaping Use: Never Used Second Hand Smoke Exposure: Yes Substance Use Type: Marijuana service: No Current occupational status: employed Gender identity: Female Cognitive needs: No Hearing needs: No Vision needs: No Female Reproductive History Menstrual Age of Menarche: 13 Review of Systems Const All systems reviewed & are unremarkable except as noted in HPI and below Physical Exam Vital Signs: BMI result Body Mass Index 24.0 General: Yes no CVA tenderness External Female Exam: normal external appearance and normal appearance of the urethra Speculum Exam - Vagina: normal appearance of the vagina, normal palpation, no lesions and no masses Speculum Exam - Cervix: normal appearance of the cervix, normal palpation, no lesions, no masses, nontender and Other cervical findings present (IUD string in place) Bimanual exam- vagina & uterus: normal bimanual exam, normal palpation, uterine size normal, normal palpation, uterine shape normal, No Cervical tenderness present and non-tender Bimanual Exam- Adnexa, other: normal adnexae Back/Spine/Pelvis Back: no CVA tenderness Results AMB Test Urine AMB Test Urine Negative Last Edit by Graciela Tolentino CMA on 06/09/25 11:10 Results Reviewed Results Reviewed: Laboratory Last Values Tst Clinic Negative 06/09/25 11:07 Assessment & Plan Assessment & Plan (1) IUD check up: Code(s): Z30.431 - Encounter for routine checking of intrauterine contraceptive device Category: Medical Plan: UPT done in the office was negative. Discussed with the patient the finding on physical exam, IUD string in place, the patient was reassured. Instructions given to patient to call in case of temperature above 100.4, severe cramping/pelvic pain, abnormal discharge or abnormal uterine bleeding or if she misses her menstrual cycle. Otherwise follow-up at her annual exam appointment. All questions answered, the patient verbalized understanding. Orders: Orders AMB HCG Urine Test Today Z32.02 - Encounter for test, result negative Coding Level of Care Code Est Pt Level 3 (51001) Diagnoses IUD check up Z30.431
[2025-06-09 11:06] VITALS: BMI 24.0
--- OUTSIDE RECORDS SUMMARY | 2025-06-09 11:45 | XMS_ITS | Encounter Summary ---
Author Organization [facility] Address [address] [place] [address] Phone Care Team Providers Care J2Ee Android Developer Name Role Phone Gela Hairston MD Primary Care Provider [phone] Encounter Details Date Type Department Care Team (Late st Contact Info) Description 05/03/2011 Documentation EM Family Medicine [address] [place] [address] Family Medicine, Physician [address], [place] [address] Social History Tobacco Use Types Packs/Day Years [...] on filedocumented in this encounter Care Teams J2Ee Android Developer Relationship Specialty Start Date End Date Gela Hairston MD [address] [place] [address] [place] [id number] PCP - General 06/20/17 04/16/23 documented as of this encounter
--- OUTSIDE RECORDS SUMMARY | 2025-06-09 11:45 | XMS_ITS | Clinical Summary ---
Author Organization [facility] [employer] [facility] Address [address] [place] [address] Care Team Providers Care Heavy Machinery Assembler Name Role Phone Unavailable Primary Care Provider [...] Cervical Cancer Screening: P ap Smear 02/24/2013 HIV Screening 12/05/2023 Hepatitis C Screening 12/05/2023 Social Influencers of Health Screening 12/05/2023 COVID-19 Vaccine ( - 2023-2 5 season) 2024 Depression Screening 11/10/2024 Influenza Vaccine (#1) 2025 HIB Vaccines Aged [...]
== END 2025-06-09 11:16 | disposition home or self-care (01) ==
LOC: HO.HWS 10:55
PROVIDERS: PCP Internal Medicine; Visit Provider Obstetrics & Gynecology
DX: Z30.431 Encounter for routine checking of intrauterine contraceptive device (principal); Z32.02 Encounter for pregnancy test, result negative
CPT/HCPCS: 99213

== ENCOUNTER → 2025-06-09 10:54 | Outpatient (BNVA) | payer OTHER, SELFPAY | PROVIDERS: PCP Internal Medicine; Visit Provider Obstetrics & Gynecology | DX: Z30.431 Encounter for routine checking of intrauterine contraceptive device (principal); Z32.02 Encounter for pregnancy test, result negative | CPT/HCPCS: 81025; 99212 ==

== ENCOUNTER 2025-10-12 12:53 | Outpatient (REF) | payer OTHER, SELFPAY ==
[2025-10-12 22:41] LABS: Bacterial Vaginosis PCR NEGATIVE (Negative); Candida Group PCR NOT DETECTED (Not Detect); Candida glab krusei PCR NOT DETECTED (Not Detect); Trichomonas vaginalis PCR NOT DETECTED (Not Detect)
[2025-10-12 23:32] LABS: CT PCR NOT DETECTED (Not Detect.); NG PCR NOT DETECTED (Not Detect.)
== END 2025-10-12 12:54 | disposition home or self-care (01) ==
LOC: HO.LNP 12:53
PROVIDERS: PCP Internal Medicine; Visit Provider Obstetrics & Gynecology
DX: Z01.419 Encounter for gynecological examination (general) (routine) without abnormal findings (principal); R10.20 Pelvic and perineal pain unspecified side; N89.8 Other specified noninflammatory disorders of vagina
CPT/HCPCS: 81515; 87491; 87591

== ENCOUNTER 2025-10-12 12:53 | Outpatient (AMB) | payer OTHER, SELFPAY ==
--- NOTE | 2025-10-12 13:28 | MHC.OFFVIS ---
Vital Signs 10/12/25 13:29 Height 5 ft 6 in Weight 145 lb BMI 23.4 BP 124/86 Intake Visit Reasons: annual/pelvic pain Statistics Tutor Required: No Information Interpreted: non-clinical & clinical General Manager [employer]: General Manager [employer] Present (Graciela LINDA) Accompanied by: Self / Same As Patient Allergies codeine (CODEINE) Allergy (Unknown, Verified 10/12/25 13:31) NAUSEA & VOMITING Post menopausal: No (mirena) HPI Comments Details: Presenting for annual exam. Complaining of an increase in vaginal discharge no associated with the vulvovaginal itching or odor Last Pap/HPV was negative in 03/02 [facility] Medical History Encounter for Depo-Provera contraception Tobacco abuse GERD (gastroesophageal reflux disease) Abnormal TSH Hyperthyroidism Subclinical hyperthyroidism Well woman exam Dysuria Frequency of urination Diastasis recti Dental infection Family planning initiation Elevated plasma metanephrines Enterocolitis Nausea & vomiting Cannabis abuse with other cannabis-induced disorder Annual physical exam Hyperkalemia Pelvic pain Severe major depression Screen for STD (sexually transmitted disease) Abnormal uterine bleeding Depot contraception Status post therapeutic Status post drug-induced Nicotine dependence Constipation Iron deficiency anemia Muscle weakness Hospital discharge follow-up test positive Hemoptysis Surgical History History of esophagogastroduodenoscopy (EGD) Hx of section Family History Maternal Aunt Colon cancer Maternal Grandfather Heart attack Other Mental health disorder Social History Housing: Apartment Alcohol intake: never Patient Tobacco Use Status: Current someday Tobacco user Tobacco use type: Cigarette Cigarettes Per Day: 4 Years Smoked: stopped 04/2022- smokes marijuana daily, 4 cigarettes a week (11/2023) e-Cigarette/Vaping Use: Never Used Second Hand Smoke Exposure: Yes Substance Use Type: Marijuana service: No Current occupational status: employed Gender identity: Female Cognitive needs: No Hearing needs: No Vision needs: No Female Reproductive History Menstrual Age of Menarche: 13 Review of Systems Const All systems reviewed & are unremarkable except as noted in HPI and below Card Reports as per HPI Resp Reports as per HPI GI Reports as per HPI and Reports no additional complaints Reports as per HPI Physical Exam Vital Signs: Last Vital Signs BP 124/86 10/12/25 13:29 BMI result Body Mass Index 23.4 Const General: cooperative, healthy appearing and comfortable Chest Chest palpation & inspection: normal inspection of the chest and normal palpation of entire chest wall Breast/axilla inspection: normal inspection of the breasts and normal inspection of the axillae Breast/axilla palpation: normal palpation of the breasts, normal palpation of the axillae and no axillary lymphadenopathy Resp Effort & Inspection: normal respiratory effort Auscultation: clear to auscultation bilaterally Percussion: percussion normal Cardio Palpation: normal PMI Rate: regular rate Rhythm: regular rhythm Heart sounds: no murmurs and no rubs Peripheral pulses: Peripheral pulses 2+ throughout GI Inspection: Yes normal to inspection Palpation (GI): Soft to palpation, nontender, no guarding, not rigid and No hepatosplenomegaly present Percussion: Yes normal to percussion Auscultation: normal bowel sounds Rectal Exam - Female: deferred General: Yes bladder normal to palpation External Female Exam: No lesion Speculum Exam - Vagina: normal appearance of the vagina, normal palpation, normal vaginal discharge and not erythematous Speculum Exam - Cervix: normal appearance of the cervix, normal palpation and Other cervical findings present (IUD string in place) Bimanual exam- vagina & uterus: normal bimanual exam, normal palpation, uterine size normal, bladder normal to palpation, consistency normal and normal palpation Bimanual Exam- Adnexa, other: normal adnexae, no masses and no tenderness Assessment & Plan Assessment & Plan (1) Well woman exam: Code(s): Z01.419 - Encounter for gynecological examination (general) (routine) without abnormal findings Category: Medical Plan: Cotesting not indicated this year. Counseled the patient about the recommended dietary allowance of 1000 mg of Calcium & 600 IU of vitamin D. The patient was instructed to perform monthly self-breast exams and to schedule an annual exam in a year; All questions answered and the patient verbalized understanding. Instructed the patient to schedule annual exam in a year (2) Vaginal discharge: Code(s): N89.8 - Other specified noninflammatory disorders of vagina Category: Medical Plan: GC/CT with BV panel collected will check the results and treat accordingly Coding Level of Care Code Est Pt Prev Care 18-39y([id number]) Diagnoses Well woman exam Z01.419 Vaginal discharge N89.8
[2025-10-12 13:29] VITALS: BP 124/86; BMI 23.4
--- OUTSIDE RECORDS SUMMARY | 2025-10-12 15:20 | XMS_ITS | Encounter Summary ---
Author Organization [facility] Address [address] [place] [address] Phone Care Team Providers Care Tool And Die Maker Level Five Name Role Phone Gela Hairston MD Primary Care Provider [phone] Encounter Details Date Type Department Care Team (Late st Contact Info) Description 04/05/2015 Documentation [facility] [place] [address] [place] [address] Family Medicine, Physician [address], [place] [address] Social History Tobacco Use Types Packs/Day Years [...] on filedocumented in this encounter Care Teams Tool And Die Maker Level Five Relationship Specialty Start Date End Date Gela Hairston MD [address] [place] [address] B[place]NA[place] Aleman [id number] PCP - General 06/20/17 04/16/23 documented as of this encounter
--- OUTSIDE RECORDS SUMMARY | 2025-10-12 15:20 | XMS_ITS | Clinical Summary ---
Author Organization [facility] ity Address [address] [place] [address] Care Team Providers Care Wrapping Machine Operator Name Role Phone Unavailable Primary Care Provider [...] Cervical Cancer Screening: P ap Smear 02/24/2013 HPV Vaccines (1 - 3-dose SCD M series) 02/24/2019 HIV Screening 12/05/2023 Hepatitis C Screening 12/05/2023 Social Influencers of Health Screening 12/05/2023 Depression Screening 11/10/2024 COVID-19 Vaccine (1 - 2024-2 6 season) 2025 Influenza Vaccine (#1) 2025 RSV Immunization Adult Patie nts (1 - 1-dose 75+ series) 02/24/2067 HIB Vaccines Aged Out No longer eligi [...]
--- OUTSIDE RECORDS SUMMARY | 2025-10-12 15:20 | XMS_ITS | Encounter Summary ---
Author Organization [facility] Address [address] [place] [address] Phone Care Team Providers Care Back Facer Name Role Phone Gela Hairston MD Primary Care Provider [phone] Encounter Details Date Type Department Care Team (Late st Contact Info) Description 05/03/2011 Documentation [facility] Family Medicine [address] [place] [address] Family Medicine, Physician [address], [place] [address] Social History Tobacco Use Types Packs/Day Years [...] on filedocumented in this encounter Care Teams Back Facer Relationship Specialty Start Date End Date Gela Hairston MD [address] [place] [address] [place] Aleman [address] PCP - General 06/20/17 04/16/23 documented as of this encounter
--- OUTSIDE RECORDS SUMMARY | 2025-10-12 15:20 | XMS_ITS | Clinical Summary ---
Author Organization [facility] Address [address] [place] [address] Phone Care Team Providers Care Breakfast Attendant Name Role Phone Unavailable Primary Care Provider [...] 05/09/1997, Additional history exists Influenza Vaccines (#1) 2025 09/25/2010, 08/10 COVID-19 Vaccine ( season) 2025 Hepatitis B Vaccines Completed 02/07/1994, 1992, 1992 [...] complete this topic Procedures * Due to [place] [employer] law, this organization might not be sharing sensitive test results. Procedure Name Priority Date/Time Associated Diagnosis Comments CHLAMYDIA AND GONORRHEA, AMPLIFIED Routine 09/26/2010 1:53 PM EST from Last 3 Months or Most Recently Relevant to Health Maintenance Results * Due to [place] law, this organization might not be sharing sensitive test results. * Chlamydia and Gonorrhoea, Amplified (09/26/2010 1:53 PM EST) URINE GC AMP PROBE NEGATIVE [facility] Comment: NO NEISSERIA GONORRHOEAE RNA DETECTED IN THIS PATIENT'S SAMPLE. (REFERENCE RANGE/NORMAL VALUE: NOT DETECTED) NOTE: THIS TEST USES MARKET DEVELOPMENT MANAGER MEDIATED AMPLIFICATION METHOD TO DETECT rRNA FROM [...] OTHER AGENTS. URINE CHLAMYDIA AMP PROBE NEGATIVE [facility] Comment: NO CHLAMYDIA TRACHOMATIS RNA DETECTED IN THIS PATIENT'S SAMPLE. (REFERENCE RANGE/NORMAL VALUE: NOT DETECTED) 09/26/2010 1:53 PM EST Narrative [facility] - 09/26/2010 1:53 PM EST URINE CHLAMYDIA GC AMP PROBE us Gela Hairston MD LAB MICROBIOLOGY - GENERAL ORDER MAMIE Final Result [facility] [address] [place] [address], from Last 3 Months or Most Recently Relevant to Health Maintenance
--- OUTSIDE RECORDS SUMMARY | 2025-10-12 15:20 | XMS_ITS | Encounter Summary ---
Author Organization [facility] Address [address] [place] [address] Phone Care Team Providers Care Smooth Plater Name Role Phone Gela Hairston MD Primary Care Provider [phone] Encounter Details Date Type Department Care Team (Late st Contact Info) Description 10/12/2010 Documentation [facility] [address] [place] [address] Family Medicine, Physician [address], [place] [address] Social History Tobacco Use Types Packs/Day Years [...] on filedocumented in this encounter Care Teams Smooth Plater Relationship Specialty Start Date End Date Gela Hairston MD [address] [place] [address] B[place] Aleman [address] PCP - General 06/20/17 04/16/23 documented as of this encounter
--- OUTSIDE RECORDS SUMMARY | 2025-10-12 15:20 | XMS_ITS | Encounter Summary ---
Author Organization [facility] Address [address] [place] [address] Phone Care Team Providers Care Industrial Painter Name Role Phone Gela Hairston MD Primary Care Provider [phone] Encounter Details Date Type Department Care Team (Late st Contact Info) Description 06/15/2015 Documentation [facility] [place] Medicine [address] [place] [address] Family Medicine, Physician [address] [place], [place] [address] Social History Tobacco Use Types Packs/Day Years [...] filedocumented in this encounter Care Teams Industrial Painter Relationship Specialty Start Date End Date Gela Hairston MD [address] [place] [address] [place] Aleman [address] PCP - General 06/20/17 04/16/23 documented as of this encounter
--- OUTSIDE RECORDS SUMMARY | 2025-10-12 15:20 | XMS_ITS | Encounter Summary ---
Author Organization [facility] Address [address] [place] [id number] Phone Care Team Providers Care Store Deli Manager Name Role Phone Gela Hairston MD Primary Care Provider [phone] Encounter Details Date Type Department Care Team (Late st Contact Info) Description 06/26/2017 Conversion Encounter [facility] [place] [address] [place] [address] Social History Tobacco Use Types Packs/Day Years [...] on filedocumented in this encounter Care Teams Store Deli Manager Relationship Specialty Start Date End Date Gela Hairston MD [address] [place] [address] PCP - General 06/20/17 04/16/23 documented as of this encounter
--- OUTSIDE RECORDS SUMMARY | 2025-10-12 15:20 | XMS_ITS | Encounter Summary ---
Author Organization [facility] Address [address] [place] [address] Phone Care Team Providers Care Director Of It Operations Name Role Phone Gela Hairston MD Primary Care Provider [phone] Encounter Details Date Type Department Care Team (Late st Contact Info) Description 06/01/2015 Documentation [facility] [place] Family Medicine [address] [place] [address] Family Medicine, Physician [address], [place] [address] Social History Tobacco Use Types Packs/Day Years [...] on filedocumented in this encounter Care Teams Director Of It Operations Relationship Specialty Start Date End Date Gela Hairston MD [address] [place] [address] B[place]NA[place] Aleman [address] PCP - General 06/20/17 04/16/23 documented as of this encounter
--- OUTSIDE RECORDS SUMMARY | 2025-10-12 15:20 | XMS_ITS | Encounter Summary ---
Author Organization [facility] Address [address] [place] [address] Phone Care Team Providers Care Traffic Sergeant Name Role Phone Gela Hairston MD Primary Care Provider [phone] Encounter Details Date Type Department Care Team (Late st Contact Info) Description 05/03/2011 Documentation [facility] [address] [place] [address] Family Medicine, Physician [address], [place] [address] Social History Tobacco Use Types Packs/Day Years [...] on filedocumented in this encounter Care Teams Traffic Sergeant Relationship Specialty Start Date End Date Gela Hairston MD [address] [place] [address] [place] Aleman [address] PCP - General 06/20/17 04/16/23 documented as of this encounter
== END 2025-10-12 13:39 | disposition home or self-care (01) ==
LOC: HO.HWS 12:54
PROVIDERS: PCP Internal Medicine; Visit Provider Obstetrics & Gynecology
DX: Z01.419 Encounter for gynecological examination (general) (routine) without abnormal findings (principal); N89.8 Other specified noninflammatory disorders of vagina
CPT/HCPCS: 99395; 99459